=== PATIENT | female | born 1945 | race Caucasian/White ===

== ENCOUNTER → 2020-03-05 14:48 | Outpatient (CLI) | payer MEDICARE, OTHER, SELFPAY ==
--- NOTE | 2020-03-05 14:56 | DI.MG.S_ITS ---
BILATERAL DIGITAL SCREENING MAMMOGRAM 3D/2D WITH CAD: 03/05/2020 CLINICAL: Routine screening. Comparison is made to exams dated: 05/23/2017 mammogram and 08/14/2018 mammogram - [facility]. The tissue of both breasts is predominantly fatty. Current study was also evaluated with a Computer Aided Detection (CAD) system. There are benign lymph nodes in the left breast. There also are benign diffuse calcifications in both breasts. No significant masses, calcifications, or other findings are seen in either breast. There has been no significant interval change. IMPRESSION: BENIGN There is no mammographic evidence of malignancy. A 1 year screening mammogram is recommended. This exam was interpreted at Station ID: [id number]. NOTE: For mammograms, a report in lay terms will be sent to the patient. Approximately 15% of breast malignancies will not be visualized mammographically. In the management of a palpable breast mass, a negative mammogram must not discourage biopsy of a clinically suspicious lesion. Electronically Signed By: Hermelindo [email or web address]/[email or web address]:03/06/2020 14:24:57 letter sent: Normal Exam ACR BI-RADS Category 2: Benign Finding(s) 3342F
== END ==
PROVIDERS: PCP Internal Medicine; Referring Provider Internal Medicine; Visit Provider Internal Medicine
DX: Z12.31 Encounter for screening mammogram for malignant neoplasm of breast (principal)
CPT/HCPCS: 77063; 77067

== ENCOUNTER → 2021-03-11 12:26 | Outpatient (CLI) | payer MEDICARE, OTHER, SELFPAY ==
--- NOTE | 2021-03-11 | DI.MG.S_ITS ---
BILATERAL DIGITAL SCREENING MAMMOGRAM 3D/2D WITH CAD: 03/11/2021 CLINICAL: Routine screening. Comparison is made to exams dated: 03/05/2020 mammogram - [facility], 08/14/2018 mammogram, and 05/23/2017 mammogram - [facility]. The tissue of both breasts is predominantly fatty. Current study was also evaluated with a Computer Aided Detection (CAD) system. There are benign lymph nodes in the left breast. There also are benign calcifications in the left breast. No significant masses, calcifications, or other findings are seen in either breast. There has been no significant interval change. IMPRESSION: BENIGN There is no mammographic evidence of malignancy. A 1 year screening mammogram is recommended. This exam was interpreted at Station ID: [id number]. NOTE: For mammograms, a report in lay terms will be sent to the patient. Approximately 15% of breast malignancies will not be visualized mammographically. In the management of a palpable breast mass, a negative mammogram must not discourage biopsy of a clinically suspicious lesion. Electronically Signed By: Demetra [email or web address]:03/13/2021 10:53:50 letter sent: Normal Exam ACR BI-RADS Category 2: Benign Finding(s) 3342F
== END ==
PROVIDERS: PCP Internal Medicine; Referring Provider Internal Medicine; Visit Provider Internal Medicine
DX: Z12.31 Encounter for screening mammogram for malignant neoplasm of breast (principal)
CPT/HCPCS: 77063; 77067

== ENCOUNTER 2021-08-21 11:15 | Outpatient (RCR) | payer MEDICARE, OTHER, SELFPAY ==
--- NOTE | 2021-06-01 17:17 | PT.OIE ---
Current Diagnoses Constipation, unspecified (06/01/21) Muscle weakness (generalized) (06/01/21) Other specified disorders of muscle (06/01/21) Urge incontinence (06/01/21) Lower abdominal pain, unspecified (06/01/21) Past Medical History (Last Updated 03/07/21 @ 21:53 by Leisa Moscoso) Atrophic vaginitis Closed left ankle fracture Constipation Fractures History of ankle surgery (~2009) History of appendectomy (~1966) History of removal of ovarian cyst (~1975) History of tobacco use HTN (hypertension) (~2005) Left humeral fracture Macular degeneration (~2018) Ovarian cyst (~1975) Prolapse of female pelvic organs (~2020) Rosacea (~2015) Shoulder pain Stress incontinence Past Surgical History (Last Updated 03/07/21 @ 21:53 by Leisa Moscoso) Anesthesia Fracture, humerus History of ankle surgery (~2009) History of appendectomy (~1966) History of removal of ovarian cyst (~1975) Visit Care Team Role Provider Type Jeny Jensen MD Family Provider Non-Staff Primary Care Provider Specialty: Internal Medicine Address: [address] [place] [address], [id number] Email: Mima Suero MD Attending Provider Physician Referring Provider Specialty: MAIL MANAGER Address: [address] [place] [address], [id number] Email: Physical Therapy Initial Evaluation PT-OP-A Visit Information Start: 05/26/21 18:19 Freq: Status: Active Protocol: Document 06/01/21 11:26 LRN (Rec: 06/01/21 12:31 LRN [id number]) Out-Patient Physical Therapy Visit Information Visit Information Visit Type Initial Evaluation Visit Start Time 11:27 Visit Stop Time 12:22 Total Visit Minutes 65 Visit Number 1 Evaluation Information Evaluation Date 06/01/21 Precautions Precautions HBP controlled by meds. PT-OP-B Current Condition Start: 05/26/21 18:19 Freq: Status: Active Protocol: Document 06/01/21 11:26 LRN (Rec: 06/01/21 12:31 LRN [id number]) Current Condition History of Current Condition Onset Date 1 yr ago Current Complaints Prolapse of bladder, inability to hold urine with an urge. History of Current Condition Pt reports bladder prolapse, hanging out and bulging out. A year ago spouse had knee surgery and while lifting she noticed her condition worsened. She was given a PF ex program by urologist and she states she has noticed some improvement with less leakage. She then saw a rolling up machine operator and was told her problem is the prolapse and she had discussed pessary use and will try a pessary after having PT. States she runs damp most of the time. Has had to stop yoga, but would like to be able to do ex yoga and gardening. Prior Treatments and Tests Vaginal estrogen creme every other day. Dr Rowland did a bladder study and found bladder was functioning normal; therefore was told to do a Kegel exercise program since last fall (up to 50QC and 10 sec hold x 50 QC). Future Testing and Treatments Planned Pessary after PT. Treatment Goals Patient/Caregiver Goals Pt goal is to do a yoga class again. Pt goal is to be put on an appropriate HEP. Pt goal is to learn how to do a Kegel correctly. Pt goal is to teach proper body control and limits with lifting. Decrease pain with sexual intercourse. Prior Functional Status Baseline Function- ADL's Independent Baseline Function- Mobility Independent Baseline Function- Other Had urinary incontinence during aerobics, every time jumped. No pain with intercourse. Participated in yoga class. Current Functional Impairments (Reported) Functional Limitations- ADL's Urinary incontinence with a strong urge. Pressure in PF and LBP, causing her have to lie down. Having to push bladder up 3-4x /day. Functional Limitations- Mobility/Gait Walking 3-4 miles, but felt bladder drop by the time the walk was over. Functional Limitations- Recreation/ Not able to return to yoga Hobbies exercise. Functional Limitations- Other Wears one light pantiliner a day. Urinates 3X after going to bed and 8x during the day. Not able to delay urine for any length of time. Personal Factors Other Personal Factors That May Effect Has spouse who has Therapy/Recovery comorbidities that she feels she has to do heavy lifting activities (ex - gardening activities). PT-OP-C Subjective Start: 05/26/21 18:19 Freq: Status: Active Protocol: Document 06/01/21 11:26 LRN (Rec: 06/01/21 12:31 LRN [id number]) Patient Questionnaires Pelvic Pain and Urgency/Frequency Patient Symptom Scale Pelvic Pain Score 22 OP-PT Pain Assessment Pain Assessment Grid Paper Pain Assessment Grid Completed Yes Location Pelvic Floor Pain Location Details Pelvic Floor & sometimes Low Back Scale Used Numeric (0 - 10) Description Aching Description- Other Pain range 2-5/10 Other Pain Aggravating Factors [place] PT-OP-I Pelvic Floor Start: 05/26/21 18:19 Freq: Status: Active Protocol: Document 06/01/21 11:26 LRN (Rec: 06/01/21 12:31 [facility] [id number]) Pelvic Floor Assessment Urine Pelvic Floor Surgery No Urinary Symptoms Urge Sensation,Prolapse, Falling Out Feeling/Heavy Other Urinary Symptoms Urgency Leakage Size Small Leakage Cause Exercise,Urge Other Leakage Causes [place] Leaks Per Day 4/week Voiding Frequency 8 Nocturia 3 Pads Used In 24 Hours 1 Urine Pad Type Panty Liner Bowel Bowel Surgery No Bowel Symptoms Constipation Pelvic Clock Pelvic Clock Other Tender @ 6 O'Clock Pressure @ 3-6 O'Clock Prolapse Cystocele Grade 3 Prolapse Comments Uterus feels it has dropped Perineal Descent Resting Present Bearing Present Contraction Ability Voluntary Contraction Moderate Voluntary Relaxation Moderate Manual Muscle Testing Left 2 Manual Muscle Testing Right 3 Manual Muscle Testing Anterior 3 Manual Muscle Testing Posterior 3 Muscle Endurance (Seconds) 4 Number of Quick Contractions In 10 10 Seconds Comments Pelvic Floor Comments Pt assessed in supine. Pt has noticeable weakening of the PF contraction after 3-4 secs but was able to maintain a contraction for 10 secs. PT-OP-J Posture/Palpation/Skin Start: 05/26/21 18:19 Freq: Status: Active Protocol: Document 06/01/21 11:26 LRN (Rec: 06/01/21 12:31 [facility] [id number]) Posture Evaluation Position Standing L-Spine Posture Decreased Lordosis Shoulder Posture (R) Elevated Ankle/Foot Posture (L) Calcaneal Eversion,(R) Calcaneal Eversion PT-OP-K Range of Motion Start: 05/26/21 18:19 Freq: Status: Active Protocol: Document 06/01/21 11:26 LRN (Rec: 06/01/21 12:31 [facility] [id number]) Lumbar Spine Range of Motion Lumbar Spine Active Degrees Testing Position Standing Flexion 110 Extension 25 Rotation Left 50 Rotation Right 45 Lateral Flexion Left 20 Lateral Flexion Right 15 ROM Limitations Soft Tissue Tightness Comments Flex is with 80 deg's hip flexion Ext is with 15 deg's hip extension PT-OP-M Strength Start: 05/26/21 18:19 Freq: Status: Active Protocol: Document 06/01/21 11:26 LRN (Rec: 06/01/21 12:31 LRN [id number]) Trunk Strength Trunk Manual Muscle Testing Testing Position Supine Rotation Left 5 Normal Rotation Right 5 Normal Hip Strength Hip Manual Muscle Testing Right Comments Generally 5/5 Left Comments Generally 5/5 PT-OP-Q Treatments Start: 05/26/21 18:19 Freq: Status: Active Protocol: Document 06/01/21 11:26 LRN (Rec: 06/01/21 12:31 LRN [id number]) Self-Care/Home Management Treatment Education Other Education Pt educated in use of Bladder Diary and I/S in tracking for 1 week. Discussed use of 2 different diaries for tracking of bladder. Discussed results of evaluation, discussed assessment at vaginal entry and possible reasons for pain, discussed specifics of plan of care, and goals. Discussed and educated pt in specifics for completion of bladder diary for next 7 days. Activities Self-Care/Home Management Activities Issued handouts for bladder diary for 7+ days. Issued & briefly reviewed handout for Kegels with pt focusing on long holds with rest time double contraction time. Pt to continue HEP of 50 Quick Flicks, f/b Long holds (as outlined in Kegel handout, 10 reps 2-3x/day), f/ b 50 Quick Flicks. Pt doing her Quick Flicks 2x/day. PT-OP-T Assessment and Plan Start: 05/26/21 18:19 Freq: Status: Active Protocol: Document 06/01/21 11:26 LRN (Rec: 06/01/21 12:31 [facility] [id number]) Physical Therapy Assessment Rehab Potential Rehabilitation Potential Good Evaluation Complexity Number of Personal Factors/Comorbidities 1-2 Number of Body Systems Impaired 3 Clinical Presentation at Evaluation Evolving Impairments Impairments Activity Tolerance,Pain,ROM, Strength Goals Four Impairment Constipation Short Term Goal (STG) Pt will be educated in proper hydration and levels and placed on bowel program. STG Duration 06/09/21 Wood Floor Layer Goal (LTG) Pt will have improved bowel function and be able to modify positioning on toilet and breathwork to minimize strain on PF. LTG Duration 08/30/21 Three Impairment PF/low back pain rated 2-5/10 Impairment Pain with intercourse. Short Term Goal (STG) Pt will experience decrease frequency onset of PF/low back pain. STG Duration 08/11/21 Shelter Goal (LTG) Decrease pain rating with sexual intercourse. LTG Duration 08/30/21 Two Impairment Prolapse limiting pt's ability to ex and do activities at home (gardening) Short Term Goal (STG) Pt will be educated in proper body mechanics and improve awareness of weight limits with lifting. STG Duration 06/16/21 Shelter Goal (LTG) Pt will be able to do a yoga class without prolapse worsening. LTG Duration 08/30/21 One Impairment Lacks HEP of isolated PF ex's and ex's targeting weak areas in the PF Short Term Goal (STG) Pt will be able to do a Kegel in isolation of substitute muscles and with good coordination of contraction with lift of PF. STG Duration 06/30/21 Wood Floor Layer Goal (LTG) Pt will be put on a HEP of PF ex's in isolation of substitute muscles with focus on strengthening of weak areas (3-6 O'Clock) of PF clock. LTG Duration 08/30/21 Assessment Summary Assessment Pt presents with cystocele visible in supine and possibly slight rectocele. With internal palpation she appears to have a drop in her uterus as well. She uses substitute muscles to obtain her PF contraction and appears to be bearing down during PF contractions and Transverse abdominal tightening. She demonstrates a proper deep breathing method, therefore proper training with ex's would be beneficial to minimize bearing down during exercises. Further assessment of her hip mobility to determine areas of restriction will be performed at her next visit. The pt will benefit from skilled physical therapy to teach proper breathing with daily and exercise activities , training for proper PF contraction in isolation of substitute muscles and education of vulvar and genital care. I will try to address her constipation and methods she can try to minimize bearing down, as well as delay techniques to decrease urinary leakage. Manual therapy to improve abdominal and organ positioning, as well as exercises to work towards achieving the above stated goals. Physical Therapy Plan Frequency and Duration Frequency of Treatment 1x/Week Plan of Care Start Date 06/01/21 Plan of Care End Date 08/30/21 Therapeutic Interventions Therapeutic Interventions Home Exercise Program,Joint Mobilizations,Manual Therapy, Neuromuscular Re-education, Patient/Caregiver Education, Self-Care/Home Management,Soft Tissue Mobilization, Therapeutic Activities, Therapeutic Exercises Modalities Biofeedback,Electric Stimulation Next Visit Focus/Plan Next Note Type Treatment Note Next Visit Plan Assess Hip mobility. PF assessment w/EMG biofeedback for strength & endurance. Discuss and educate pt in constipation management. Education for proper breathing with Kegels, transfers, exercise. Educate pt in proper coordinated PF contraction. Educate pt in vulvar care and genital hygiene. Pt awareness training for isolation of PF when doing a Kegel. Increase strength of L side of PF.
--- NOTE | 2021-06-01 17:17 | PT.OPPOC ---
Physical, Occupational & Speech Therapy At [facility] Current Diagnoses Constipation, unspecified (06/01/21) Muscle weakness (generalized) (06/01/21) Other specified disorders of muscle (06/01/21) Urge incontinence (06/01/21) Lower abdominal pain, unspecified (06/01/21) Visit Care Team Role Provider Type Jeny Jensen MD Family Provider Non-Staff Primary Care Provider Specialty: Internal Medicine Address: [address] [place] [address], [id number] Email: Mima Suero MD Attending Provider Physician Referring Provider Specialty: INDUSTRIAL SPRAYPAINTER Address: [address] [place] [address], [address] Email: Plan Of Care PT-OP-T Assessment and Plan Start: 05/26/21 18:19 Freq: Status: Active Protocol: Document 06/01/21 11:26 LRN (Rec: 06/01/21 12:31 LRN [id number]) Physical Therapy Assessment Rehab Potential Rehabilitation Potential Good Evaluation Complexity Number of Personal Factors/Comorbidities 1-2 Number of Body Systems Impaired 3 Clinical Presentation at Evaluation Evolving Impairments Impairments Activity Tolerance,Pain,ROM, Strength Goals Four Impairment Constipation Short Term Goal (STG) Pt will be educated in proper hydration and levels and placed on bowel program. STG Duration 06/09/21 Creative Services Director Goal (LTG) Pt will have improved bowel function and be able to modify positioning on toilet and breathwork to minimize strain on PF. LTG Duration 08/30/21 Three Impairment PF/low back pain rated 2-5/10 Impairment Pain with intercourse. Short Term Goal (STG) Pt will experience decrease frequency onset of PF/low back pain. STG Duration 08/11/21 [facility] Goal (LTG) Decrease pain rating with sexual intercourse. LTG Duration 08/30/21 Two Impairment Prolapse limiting pt's ability to ex and do activities at home (gardening) Short Term Goal (STG) Pt will be educated in proper body mechanics and improve awareness of weight limits with lifting. STG Duration 06/16/21 Creative Services Director Goal (LTG) Pt will be able to do a yoga class without prolapse worsening. LTG Duration 08/30/21 One Impairment Lacks HEP of isolated PF ex's and ex's targeting weak areas in the PF Short Term Goal (STG) Pt will be able to do a Kegel in isolation of substitute muscles and with good coordination of contraction with lift of PF. STG Duration 06/30/21 [facility] Goal (LTG) Pt will be put on a HEP of PF ex's in isolation of substitute muscles with focus on strengthening of weak areas (3-6 O'Clock) of PF clock. LTG Duration 08/30/21 Assessment Summary Assessment Pt presents with cystocele visible in supine and possibly slight rectocele. With internal palpation she appears to have a drop in her uterus as well. She uses substitute muscles to obtain her PF contraction and appears to be bearing down during PF contractions and Transverse abdominal tightening. She demonstrates a proper deep breathing method, therefore proper training with ex's would be beneficial to minimize bearing down during exercises. Further assessment of her hip mobility to determine areas of restriction will be performed at her next visit. The pt will benefit from skilled physical therapy to teach proper breathing with daily and exercise activities , training for proper PF contraction in isolation of substitute muscles and education of vulvar and genital care. I will try to address her constipation and methods she can try to minimize bearing down, as well as delay techniques to decrease urinary leakage. Manual therapy to improve abdominal and organ positioning, as well as exercises to work towards achieving the above stated goals. Physical Therapy Plan Frequency and Duration Frequency of Treatment 1x/Week Plan of Care Start Date 06/01/21 Plan of Care End Date 08/30/21 Therapeutic Interventions Therapeutic Interventions Home Exercise Program,Joint Mobilizations,Manual Therapy, Neuromuscular Re-education, Patient/Caregiver Education, Self-Care/Home Management,Soft Tissue Mobilization, Therapeutic Activities, Therapeutic Exercises Modalities Biofeedback,Electric Stimulation Next Visit Focus/Plan Next Note Type Treatment Note Next Visit Plan Assess Hip mobility. PF assessment w/EMG biofeedback for strength & endurance. Discuss and educate pt in constipation management. Education for proper breathing with Kegels, transfers, exercise. Educate pt in proper coordinated PF contraction. Educate pt in vulvar care and genital hygiene. Pt awareness training for isolation of PF when doing a Kegel. Increase strength of L side of PF. Plan of Care Dates Plan of Care Start Date 06/01/21 Plan of Care End Date 08/30/21 Electronically Signed by: Tangela Polo, PT 06/01/21 [id number] Please Sign and Return: I have reviewed this Plan of Care and certify that the skilled therapy services above are required to meet the patient?s needs. Physician Signature Date Printed Name and Credentials Clinical Instructor Signature Printed Name and Credentials
--- NOTE | 2021-06-09 16:44 | PT.OTN ---
Current Diagnoses Constipation, unspecified (06/09/21) Muscle weakness (generalized) (06/09/21) Other specified disorders of muscle (06/09/21) Urge incontinence (06/09/21) Lower abdominal pain, unspecified (06/09/21) Physical Therapy Treatment Note PT-OP-A Visit Information Start: 05/26/21 18:19 Freq: Status: Active Protocol: Document 06/09/21 13:04 LRN (Rec: 06/09/21 16:41 LRN [id number]) Out-Patient Physical Therapy Visit Information Visit Information Visit Type Treatment Note Visit Start Time 13:04 Visit Stop Time 13:45 Total Visit Minutes 41 Visit Number 1 Evaluation Information Evaluation Date 06/01/21 Precautions Precautions HBP controlled by meds. PT-OP-B Current Condition Start: 05/26/21 18:19 Freq: Status: Active Protocol: Document 06/01/21 11:26 LRN (Rec: 06/01/21 12:31 LRN [id number]) Current Condition History of Current Condition Onset Date 1 yr ago Current Complaints Prolapse of bladder, inability to hold urine with an urge. History of Current Condition Pt reports bladder prolapse, hanging out and bulging out. A year ago spouse had knee surgery and while lifting she noticed her condition worsened. She was given a PF ex program by urologist and she states she has noticed some improvement with less leakage. She then saw a sheet manufacturing supervisor and was told her problem is the prolapse and she had discussed pessary use and will try a pessary after having PT. States she runs damp most of the time. Has had to stop yoga, but would like to be able to do ex yoga and gardening. Prior Treatments and Tests Vaginal estrogen creme every other day. Dr Rowland did a bladder study and found bladder was functioning normal; therefore was told to do a Kegel exercise program since last fall (up to 50QC and 10 sec hold x 50 QC). Future Testing and Treatments Planned Pessary after PT. Treatment Goals Patient/Caregiver Goals Pt goal is to do a yoga class again. Pt goal is to be put on an appropriate HEP. Pt goal is to learn how to do a Kegel correctly. Pt goal is to teach proper body control and limits with lifting. Decrease pain with sexual intercourse. Prior Functional Status Baseline Function- ADL's Independent Baseline Function- Mobility Independent Baseline Function- Other Had urinary incontinence during aerobics, every time jumped. No pain with intercourse. Participated in yoga class. Current Functional Impairments (Reported) Functional Limitations- ADL's Urinary incontinence with a strong urge. Pressure in PF and LBP, causing her have to lie down. Having to push bladder up 3-4x /day. Functional Limitations- Mobility/Gait Walking 3-4 miles, but felt bladder drop by the time the walk was over. Functional Limitations- Recreation/ Not able to return to yoga Hobbies exercise. Functional Limitations- Other Wears one light pantiliner a day. Urinates 3X after going to bed and 8x during the day. Not able to delay urine for any length of time. Personal Factors Other Personal Factors That May Effect Has spouse who has Therapy/Recovery comorbidities that she feels she has to do heavy lifting activities (ex - gardening activities). PT-OP-C Subjective Start: 05/26/21 18:19 Freq: Status: Active Protocol: Document 06/09/21 13:04 LRN (Rec: 06/09/21 16:41 LRN [id number]) OP-PT Subjective Patient Comments Patient Comments Noticed the most leakage comes when heading to the bathroom or when coughing. States new meds prevents her from drinking her red wine at night . PT-OP-I Pelvic Floor Start: 05/26/21 18:19 Freq: Status: Active Protocol: Document 06/01/21 11:26 LRN (Rec: 06/01/21 12:31 LRN [id number]) Pelvic Floor Assessment Urine Pelvic Floor Surgery No Urinary Symptoms Urge Sensation,Prolapse, Falling Out Feeling/Heavy Other Urinary Symptoms Urgency Leakage Size Small Leakage Cause Exercise,Urge Other Leakage Causes [place] Leaks Per Day 4/week Voiding Frequency 8 Nocturia 3 Pads Used In 24 Hours 1 Urine Pad Type Panty Liner Bowel Bowel Surgery No Bowel Symptoms Constipation Pelvic Clock Pelvic Clock Other Tender @ 6 O'Clock Pressure @ 3-6 O'Clock Prolapse Cystocele Grade 3 Prolapse Comments Uterus feels it has dropped Perineal Descent Resting Present Bearing Present Contraction Ability Voluntary Contraction Moderate Voluntary Relaxation Moderate Manual Muscle Testing Left 2 Manual Muscle Testing Right 3 Manual Muscle Testing Anterior 3 Manual Muscle Testing Posterior 3 Muscle Endurance (Seconds) 4 Number of Quick Contractions In 10 10 Seconds Comments Pelvic Floor Comments Pt assessed in supine. Pt has noticeable weakening of the PF contraction after 3-4 secs but was able to maintain a contraction for 10 secs. PT-OP-J Posture/Palpation/Skin Start: 05/26/21 18:19 Freq: Status: Active Protocol: Document 06/01/21 11:26 LRN (Rec: 06/01/21 12:31 LRN [id number]) Posture Evaluation Position Standing L-Spine Posture Decreased Lordosis Shoulder Posture (R) Elevated Ankle/Foot Posture (L) Calcaneal Eversion,(R) Calcaneal Eversion PT-OP-K Range of Motion Start: 05/26/21 18:19 Freq: Status: Active Protocol: Document 06/01/21 11:26 LRN (Rec: 06/01/21 12:31 LRN [id number]) Lumbar Spine Range of Motion Lumbar Spine Active Degrees Testing Position Standing Flexion 110 Extension 25 Rotation Left 50 Rotation Right 45 Lateral Flexion Left 20 Lateral Flexion Right 15 ROM Limitations Soft Tissue Tightness Comments Flex is with 80 deg's hip flexion Ext is with 15 deg's hip extension PT-OP-M Strength Start: 05/26/21 18:19 Freq: Status: Active Protocol: Document 06/01/21 11:26 LRN (Rec: 06/01/21 12:31 LRN [id number]) Trunk Strength Trunk Manual Muscle Testing Testing Position Supine Rotation Left 5 Normal Rotation Right 5 Normal Hip Strength Hip Manual Muscle Testing Right Comments Generally 5/5 Left Comments Generally 5/5 PT-OP-Q Treatments Start: 05/26/21 18:19 Freq: Status: Active Protocol: Document 06/09/21 13:04 LRN (Rec: 06/09/21 16:41 LRN [id number]) Therapeutic Exercises Supine Exercises LE Roll in/out/PF Supine Exercise Name LE Roll in/out w/PF Side bilateral Equipment Used Wedge Reps/Minutes 9' Comments Much v cuing and I/S to coordinate mvmt, Standing Exercises Deep breathing Standing Exercise Name Breathing w/PF Equipment Used Wedge Reps/Minutes 2' Comments Training w/much v cuing to contract with in breath Self-Care/Home Management Treatment Education Patient Education Home Exercise Program Other Education Reviewed ex log and made suggestions as needed for: fluid intake types, times of day with hydration levels (1/2 body wgt in oz's and extra needed for coffee and alcholic drinks), time of day of voiding, long discussion of foods/drinks to avoid. Discussed pt's exercising, use of estrogen cream and when bladder is outside of vagina ( when bladder has dried out). Activities Self-Care/Home Management Activities Issued & reviewed HEP: LE roll in/outs with PF contraction on inhale/roll outs. PT-OP-T Assessment and Plan Start: 05/26/21 18:19 Freq: Status: Active Protocol: Document 06/09/21 13:04 LRN (Rec: 06/09/21 16:41 LRN [id number]) Physical Therapy Assessment Goals Four Impairment Constipation Short Term Goal (STG) Pt will be educated in proper hydration and levels and placed on bowel program. (06/09/21: Pt was educated in proper hydration levels). STG Duration 06/09/21 [employer] Goal (LTG) Pt will have improved bowel function and be able to modify positioning on toilet and breathwork to minimize strain on PF. LTG Duration 08/30/21 Three Impairment PF/low back pain rated 2-5/10 Impairment Pain with intercourse. Short Term Goal (STG) Pt will experience decrease frequency onset of PF/low back pain. STG Duration 08/11/21 [employer] Goal (LTG) Decrease pain rating with sexual intercourse. LTG Duration 08/30/21 Two Impairment Prolapse limiting pt's ability to ex and do activities at home (gardening) Short Term Goal (STG) Pt will be educated in proper body mechanics and improve awareness of weight limits with lifting. STG Duration 06/16/21 [facility] Goal (LTG) Pt will be able to do a yoga class without prolapse worsening. LTG Duration 08/30/21 One Impairment Lacks HEP of isolated PF ex's and ex's targeting weak areas in the PF Short Term Goal (STG) Pt will be able to do a Kegel in isolation of substitute muscles and with good coordination of contraction with lift of PF. STG Duration 06/30/21 [employer] Goal (LTG) Pt will be put on a HEP of PF ex's in isolation of substitute muscles with focus on strengthening of weak areas (3-6 O'Clock) of PF clock. LTG Duration 08/30/21 Assessment Summary Assessment Pt is very receptive to PF strengthenig program. Today's check of PF in standing showed her Bladder to not extending beyond the hymen location; therefore Stage 1 bladder prolapse, but verbal reports would indicate the pt has Stage 2 bladder prolapse. Pt needs further training with LE roll in/outs and to advance to holding on breath in & out. Physical Therapy Plan Frequency and Duration Frequency of Treatment 1x/Week Plan of Care Start Date 06/01/21 Plan of Care End Date 08/30/21 Next Visit Focus/Plan Next Note Type Treatment Note Next Visit Plan Assess Hip mobility. Discuss and educate pt in constipation management/Bowel Program.] Teach positioning for ease of BM voiding and proper breathing to decrease PF strain with BM. ?PF assessment w/EMG biofeedback for strength & endurance. Teach Kegels in isolation of substitute ms. Education for proper breathing with Kegels, transfers, & during exercise. Educate pt in proper coordinated PF contraction. Educate pt in vulvar care and genital hygiene. Pt awareness training for isolation of PF when doing a Kegel. Increase strength of L side of PF.
--- NOTE | 2021-06-15 12:23 | PT.OTN ---
Current Diagnoses Constipation, unspecified (06/15/21) Muscle weakness (generalized) (06/15/21) Other specified disorders of muscle (06/15/21) Urge incontinence (06/15/21) Lower abdominal pain, unspecified (06/15/21) Physical Therapy Treatment Note PT-OP-A Visit Information Start: 05/26/21 18:19 Freq: Status: Active Protocol: Document 06/15/21 11:27 LRN (Rec: 06/15/21 12:23 LRN [id number]) Out-Patient Physical Therapy Visit Information Visit Information Visit Type Treatment Note Visit Start Time 11:27 Visit Stop Time 12:05 Total Visit Minutes 38 Visit Number 3 Evaluation Information Evaluation Date 06/01/21 Precautions Precautions HBP controlled by meds. PT-OP-B Current Condition Start: 05/26/21 18:19 Freq: Status: Active Protocol: Document 06/01/21 11:26 LRN (Rec: 06/01/21 12:31 LRN [id number]) Current Condition History of Current Condition Onset Date 1 yr ago Current Complaints Prolapse of bladder, inability to hold urine with an urge. History of Current Condition Pt reports bladder prolapse, hanging out and bulging out. A year ago spouse had knee surgery and while lifting she noticed her condition worsened. She was given a PF ex program by urologist and she states she has noticed some improvement with less leakage. She then saw a colorist photography and was told her problem is the prolapse and she had discussed pessary use and will try a pessary after having PT. States she runs damp most of the time. Has had to stop yoga, but would like to be able to do ex yoga and gardening. Prior Treatments and Tests Vaginal estrogen creme every other day. Dr Rowland did a bladder study and found bladder was functioning normal; therefore was told to do a Kegel exercise program since last fall (up to 50QC and 10 sec hold x 50 QC). Future Testing and Treatments Planned Pessary after PT. Treatment Goals Patient/Caregiver Goals Pt goal is to do a yoga class again. Pt goal is to be put on an appropriate HEP. Pt goal is to learn how to do a Kegel correctly. Pt goal is to teach proper body control and limits with lifting. Decrease pain with sexual intercourse. Prior Functional Status Baseline Function- ADL's Independent Baseline Function- Mobility Independent Baseline Function- Other Had urinary incontinence during aerobics, every time jumped. No pain with intercourse. Participated in yoga class. Current Functional Impairments (Reported) Functional Limitations- ADL's Urinary incontinence with a strong urge. Pressure in PF and LBP, causing her have to lie down. Having to push bladder up 3-4x /day. Functional Limitations- Mobility/Gait Walking 3-4 miles, but felt bladder drop by the time the walk was over. Functional Limitations- Recreation/ Not able to return to yoga Hobbies exercise. Functional Limitations- Other Wears one light pantiliner a day. Urinates 3X after going to bed and 8x during the day. Not able to delay urine for any length of time. Personal Factors Other Personal Factors That May Effect Has spouse who has Therapy/Recovery comorbidities that she feels she has to do heavy lifting activities (ex - gardening activities). PT-OP-C Subjective Start: 05/26/21 18:19 Freq: Status: Active Protocol: Document 06/15/21 11:27 LRN (Rec: 06/15/21 12:23 LRN [id number]) OP-PT Subjective Patient Comments Patient Comments States without coffee, she was able to go 3 hrs without urinating. PT-OP-I Pelvic Floor Start: 05/26/21 18:19 Freq: Status: Active Protocol: Document 06/01/21 11:26 LRN (Rec: 06/01/21 12:31 LRN [id number]) Pelvic Floor Assessment Urine Pelvic Floor Surgery No Urinary Symptoms Urge Sensation,Prolapse, Falling Out Feeling/Heavy Other Urinary Symptoms Urgency Leakage Size Small Leakage Cause Exercise,Urge Other Leakage Causes [place] Leaks Per Day 4/week Voiding Frequency 8 Nocturia 3 Pads Used In 24 Hours 1 Urine Pad Type Panty Liner Bowel Bowel Surgery No Bowel Symptoms Constipation Pelvic Clock Pelvic Clock Other Tender @ 6 O'Clock Pressure @ 3-6 O'Clock Prolapse Cystocele Grade 3 Prolapse Comments Uterus feels it has dropped Perineal Descent Resting Present Bearing Present Contraction Ability Voluntary Contraction Moderate Voluntary Relaxation Moderate Manual Muscle Testing Left 2 Manual Muscle Testing Right 3 Manual Muscle Testing Anterior 3 Manual Muscle Testing Posterior 3 Muscle Endurance (Seconds) 4 Number of Quick Contractions In 10 10 Seconds Comments Pelvic Floor Comments Pt assessed in supine. Pt has noticeable weakening of the PF contraction after 3-4 secs but was able to maintain a contraction for 10 secs. PT-OP-J Posture/Palpation/Skin Start: 05/26/21 18:19 Freq: Status: Active Protocol: Document 06/01/21 11:26 LRN (Rec: 06/01/21 12:31 LRN [id number]) Posture Evaluation Position Standing L-Spine Posture Decreased Lordosis Shoulder Posture (R) Elevated Ankle/Foot Posture (L) Calcaneal Eversion,(R) Calcaneal Eversion PT-OP-K Range of Motion Start: 05/26/21 18:19 Freq: Status: Active Protocol: Document 06/15/21 11:27 LRN (Rec: 06/15/21 12:23 LRN [id number]) Hip Goniometric Range of Motion Hip Right Passive Testing Position Supine Flexion w/Knee Flexed 130 Straight Leg Raise 90 Abduction 50 Internal Rotation 30 External Rotation 75 Left Passive Testing Position Supine Flexion w/Knee Flexed 130 Straight Leg Raise 90 Abduction 50 Internal Rotation 30 External Rotation 60 PT-OP-M Strength Start: 05/26/21 18:19 Freq: Status: Active Protocol: Document 06/01/21 11:26 LRN (Rec: 06/01/21 12:31 LRN [id number]) Trunk Strength Trunk Manual Muscle Testing Testing Position Supine Rotation Left 5 Normal Rotation Right 5 Normal Hip Strength Hip Manual Muscle Testing Right Comments Generally 5/5 Left Comments Generally 5/5 PT-OP-Q Treatments Start: 05/26/21 18:19 Freq: Status: Active Protocol: Document 06/15/21 11:27 LRN (Rec: 06/15/21 12:23 LRN [id number]) Therapeutic Exercises Supine Exercises Hip Flex/SLR Supine Exercise Name KTC & Hamstring stretch Side bilateral Reps/Minutes 6' Comments PROM taken Hip ER stretch Supine Exercise Name Fig 4 stretch Side bilateral Reps/Minutes 60 H x 1 Comments PROM taken Hip IR stretch Supine Exercise Name Knee to opposite shoulder Side bilateral Reps/Minutes 60 H x 1 & x1 self stretch Comments PROM taken LE Roll in/out/PF Supine Exercise Name LE Roll in/out w/PF Side bilateral Equipment Used Wedge Reps/Minutes 10' Comments Much v cuing and I/S to coordinate mvmt, Self-Care/Home Management Treatment Education Patient Education Home Exercise Program Other Education Discussed at length, pt daily fluid intake and bathroom habits (urinary and bowels). Pt taking Miralax daily and is not wanting to take. Discussed types of fluids she is drinking and body response (increased urinary voiding). Discussed alternative to coffee (decaf vs coffee substitutes). Discussed pt lower abdominal pain onset after doing Kegel ex's. Activities Self-Care/Home Management Activities I/S pt in hip IR stretches: Piriformis (knee to opposite shoulder) and lateral hip stretch. PT-OP-T Assessment and Plan Start: 05/26/21 18:19 Freq: Status: Active Protocol: Document 06/15/21 11:27 LRN (Rec: 06/15/21 12:23 LRN [id number]) Physical Therapy Assessment Goals Four Impairment Constipation Short Term Goal (STG) Pt will be educated in proper hydration and levels and placed on bowel program. (06/09/21: Pt was educated in proper hydration levels). STG Duration 06/09/21 (05/15/21; Partially met) [facility] Goal (LTG) Pt will have improved bowel function and be able to modify positioning on toilet and breathwork to minimize strain on PF. LTG Duration 08/30/21 Three Impairment PF/low back pain rated 2-5/10 Impairment Pain with intercourse. Short Term Goal (STG) Pt will experience decrease frequency onset of PF/low back pain. STG Duration 08/11/21 [facility]iary Goal (LTG) Decrease pain rating with sexual intercourse. LTG Duration 08/30/21 Two Impairment Prolapse limiting pt's ability to ex and do activities at home (gardening) Short Term Goal (STG) Pt will be educated in proper body mechanics and improve awareness of weight limits with lifting. STG Duration 06/16/21 [facility]iary Goal (LTG) Pt will be able to do a yoga class without prolapse worsening. LTG Duration 08/30/21 One Impairment Lacks HEP of isolated PF ex's and ex's targeting weak areas in the PF Short Term Goal (STG) Pt will be able to do a Kegel in isolation of substitute muscles and with good coordination of contraction with lift of PF. STG Duration 06/30/21 Stacker [employer] Goal (LTG) Pt will be put on a HEP of PF ex's in isolation of substitute muscles with focus on strengthening of weak areas (3-6 O'Clock) of PF clock. LTG Duration 08/30/21 Assessment Summary Assessment On eval, pt had visible cystocele in supine and possibly slight rectocele. Pt needed much verbal cuing to coordinate LE roll in/out ex's . Her L hip mobility is decreased (note: pt L ankle fused). Physical Therapy Plan Frequency and Duration Frequency of Treatment 1x/Week Plan of Care Start Date 06/01/21 Plan of Care End Date 08/30/21 Next Visit Focus/Plan Next Note Type Treatment Note Next Visit Plan Assess gait for catching of toes on L side. Discuss and educate pt in constipation, place on Bowel Program.] Teach positioning for ease of BM voiding and proper breathing to decrease PF strain with BM. ?PF assessment w/EMG biofeedback for strength & endurance. Education for proper breathing with Kegels, transfers, & during exercise. Monitor for Kegels in isolation of substitute ms. Educate pt in proper coordinated PF contraction. Educate pt in vulvar care and genital hygiene. Pt awareness training for isolation of PF when doing a Kegel. Increase strength of L side of PF.
--- NOTE | 2021-06-22 12:33 | PT.OTN ---
Current Diagnoses Constipation, unspecified (06/22/21) Muscle weakness (generalized) (06/22/21) Other specified disorders of muscle (06/22/21) Urge incontinence (06/22/21) Lower abdominal pain, unspecified (06/22/21) Physical Therapy Treatment Note PT-OP-A Visit Information Start: 05/26/21 18:19 Freq: Status: Active Protocol: Document 06/22/21 11:24 LRN (Rec: 06/22/21 11:22 LRN [id number]) Out-Patient Physical Therapy Visit Information Visit Information Visit Type Treatment Note Visit Start Time 11:24 Visit Stop Time 12:11 Total Visit Minutes 47 Visit Number 4 Evaluation Information Evaluation Date 06/01/21 Precautions Precautions HBP controlled by meds. PT-OP-B Current Condition Start: 05/26/21 18:19 Freq: Status: Active Protocol: Document 06/01/21 11:26 LRN (Rec: 06/01/21 12:31 LRN [id number]) Current Condition History of Current Condition Onset Date 1 yr ago Current Complaints Prolapse of bladder, inability to hold urine with an urge. History of Current Condition Pt reports bladder prolapse, hanging out and bulging out. A year ago spouse had knee surgery and while lifting she noticed her condition worsened. She was given a PF ex program by urologist and she states she has noticed some improvement with less leakage. She then saw a supervisor metal furniture assembly and was told her problem is the prolapse and she had discussed pessary use and will try a pessary after having PT. States she runs damp most of the time. Has had to stop yoga, but would like to be able to do ex yoga and gardening. Prior Treatments and Tests Vaginal estrogen creme every other day. Dr Rowland did a bladder study and found bladder was functioning normal; therefore was told to do a Kegel exercise program since last fall (up to 50QC and 10 sec hold x 50 QC). Future Testing and Treatments Planned Pessary after PT. Treatment Goals Patient/Caregiver Goals Pt goal is to do a yoga class again. Pt goal is to be put on an appropriate HEP. Pt goal is to learn how to do a Kegel correctly. Pt goal is to teach proper body control and limits with lifting. Decrease pain with sexual intercourse. Prior Functional Status Baseline Function- ADL's Independent Baseline Function- Mobility Independent Baseline Function- Other Had urinary incontinence during aerobics, every time jumped. No pain with intercourse. Participated in yoga class. Current Functional Impairments (Reported) Functional Limitations- ADL's Urinary incontinence with a strong urge. Pressure in PF and LBP, causing her have to lie down. Having to push bladder up 3-4x /day. Functional Limitations- Mobility/Gait Walking 3-4 miles, but felt bladder drop by the time the walk was over. Functional Limitations- Recreation/ Not able to return to yoga Hobbies exercise. Functional Limitations- Other Wears one light pantiliner a day. Urinates 3X after going to bed and 8x during the day. Not able to delay urine for any length of time. Personal Factors Other Personal Factors That May Effect Has spouse who has Therapy/Recovery comorbidities that she feels she has to do heavy lifting activities (ex - gardening activities). PT-OP-C Subjective Start: 05/26/21 18:19 Freq: Status: Active Protocol: Document 06/22/21 11:24 LRN (Rec: 06/22/21 11:22 LRN [id number]) OP-PT Subjective Patient Comments Patient Comments Wants to focu on the core. Wants to know if she is doing a correct Kegel. Wants some ex's. PT-OP-I Pelvic Floor Start: 05/26/21 18:19 Freq: Status: Active Protocol: Document 06/01/21 11:26 LRN (Rec: 06/01/21 12:31 LRN [id number]) Pelvic Floor Assessment Urine Pelvic Floor Surgery No Urinary Symptoms Urge Sensation,Prolapse, Falling Out Feeling/Heavy Other Urinary Symptoms Urgency Leakage Size Small Leakage Cause Exercise,Urge Other Leakage Causes [place] Leaks Per Day 4/week Voiding Frequency 8 Nocturia 3 Pads Used In 24 Hours 1 Urine Pad Type Panty Liner Bowel Bowel Surgery No Bowel Symptoms Constipation Pelvic Clock Pelvic Clock Other Tender @ 6 O'Clock Pressure @ 3-6 O'Clock Prolapse Cystocele Grade 3 Prolapse Comments Uterus feels it has dropped Perineal Descent Resting Present Bearing Present Contraction Ability Voluntary Contraction Moderate Voluntary Relaxation Moderate Manual Muscle Testing Left 2 Manual Muscle Testing Right 3 Manual Muscle Testing Anterior 3 Manual Muscle Testing Posterior 3 Muscle Endurance (Seconds) 4 Number of Quick Contractions In 10 10 Seconds Comments Pelvic Floor Comments Pt assessed in supine. Pt has noticeable weakening of the PF contraction after 3-4 secs but was able to maintain a contraction for 10 secs. PT-OP-J Posture/Palpation/Skin Start: 05/26/21 18:19 Freq: Status: Active Protocol: Document 06/01/21 11:26 LRN (Rec: 06/01/21 12:31 LRN [id number]) Posture Evaluation Position Standing L-Spine Posture Decreased Lordosis Shoulder Posture (R) Elevated Ankle/Foot Posture (L) Calcaneal Eversion,(R) Calcaneal Eversion PT-OP-K Range of Motion Start: 05/26/21 18:19 Freq: Status: Active Protocol: Document 06/15/21 11:27 LRN (Rec: 06/15/21 12:23 LRN [id number]) Hip Goniometric Range of Motion Hip Right Passive Testing Position Supine Flexion w/Knee Flexed 130 Straight Leg Raise 90 Abduction 50 Internal Rotation 30 External Rotation 75 Left Passive Testing Position Supine Flexion w/Knee Flexed 130 Straight Leg Raise 90 Abduction 50 Internal Rotation 30 External Rotation 60 PT-OP-M Strength Start: 05/26/21 18:19 Freq: Status: Active Protocol: Document 06/01/21 11:26 LRN (Rec: 06/01/21 12:31 LRN [id number]) Trunk Strength Trunk Manual Muscle Testing Testing Position Supine Rotation Left 5 Normal Rotation Right 5 Normal Hip Strength Hip Manual Muscle Testing Right Comments Generally 5/5 Left Comments Generally 5/5 PT-OP-Q Treatments Start: 05/26/21 18:19 Freq: Status: Active Protocol: Document 06/22/21 11:24 LRN (Rec: 06/22/21 11:25 LRN [id number]) Therapeutic Exercises Supine Exercises Kegel Supine Exercise Name Kegel on Wedge: 5 hold (I/S in how to progress to 10 in 7 days) Equipment Used Wedge Reps/Minutes 12' Chest breathing Supine Exercise Name Breathing with TA tight Reps/Minutes 10' Comments Much phy & v cuing used, but pt not able to breath with core stabilized. Sit <> Supine Supine Exercise Name Transfer training with proper breathing > adding PF Side right Reps/Minutes 4x Comments v cuing needed to coordinate movement. Sit <> stand Supine Exercise Name Transfer training with proper breathing > adding PF Reps/Minutes 4' Comments v cuing needed to coordinate movement. Lateral Hip stretch Supine Exercise Name Lateral Hip stretch Side bilateral Reps/Minutes 60 H x 1 each Hip Flex/SLR Supine Exercise Name KTC & Hamstring stretch Side bilateral Reps/Minutes 6' Hip IR stretch Supine Exercise Name Knee to opposite shoulder Side bilateral Reps/Minutes 60 H x 2 each Self-Care/Home Management Treatment Education Patient Education Home Exercise Program Activities Self-Care/Home Management Activities Issued & reviewed HEP: Piriformis and Lateral hip stretch; Bowel massage and Bowel program, w/pt instructed to discuss with her physician use of magnesium before adding to diet. PT-OP-T Assessment and Plan Start: 05/26/21 18:19 Freq: Status: Active Protocol: Document 06/22/21 11:24 LRN (Rec: 06/22/21 11: LRN [id number]) Physical Therapy Assessment Goals Four Impairment Constipation Short Term Goal (STG) Pt will be educated in proper hydration and levels and placed on bowel program. (06/09/21: Pt was educated in proper hydration levels). (06/22/21: Education in bowel program and bowel massage). STG Duration 06/09/21 (06/22/21: MET GOAL) [facility] Goal (LTG) Pt will have improved bowel function and be able to modify positioning on toilet and breathwork to minimize strain on PF. LTG Duration 08/30/21 Three Impairment PF/low back pain rated 2-5/10 Impairment Pain with intercourse. Short Term Goal (STG) Pt will experience decrease frequency onset of PF/low back pain. STG Duration 08/11/21 [facility] Goal (LTG) Decrease pain rating with sexual intercourse. LTG Duration 08/30/21 Two Impairment Prolapse limiting pt's ability to ex and do activities at home (gardening) Short Term Goal (STG) Pt will be educated in proper body mechanics and improve awareness of weight limits with lifting. (06/22/21: Pt educated in log roll transfer from [facility] with proper breathing) STG Duration 06/16/21 (06/22/21: Progressed ) [facility] Goal (LTG) Pt will be able to do a yoga class without prolapse worsening. LTG Duration 08/30/21 One Impairment Lacks HEP of isolated PF ex's and ex's targeting weak areas in the PF Short Term Goal (STG) Pt will be able to do a Kegel in isolation of substitute muscles and with good coordination of contraction with lift of PF. (06/22/21: Can do isolated Kegel from gluts and hip AD's, but not TA). STG Duration 06/30/21 (06/22/21: Progressed ) [employer] Goal (LTG) Pt will be put on a HEP of PF ex's in isolation of substitute muscles with focus on strengthening of weak areas (3-6 O'Clock) of PF clock. LTG Duration 08/30/21 Assessment Summary Assessment Poor to no core stability when breathing. Pt has tight hip IR's and L ER's. Pt in sup w/ hips elevated, is able to feel a Kegel in sup but not able to sustain while breathing. She states she can do a Kegel in isolation of her buttocks, and hip AD's but not her TA. Physical Therapy Plan Frequency and Duration Frequency of Treatment 1x/Week Plan of Care Start Date 06/01/21 Plan of Care End Date 08/30/21 Next Visit Focus/Plan Next Note Type Treatment Note Next Visit Plan Plan: 3 visits before 1 month vacation. On return, recheck by referring physician. Assess gait for catching of toes on L side. Review proper breathing with Kegels, transfers, and bowel massage. Review proper coordinated PF contraction with hips elevated . Assess pt's ability to perform PF contraction in when doing a Kegel. Teach positioning for ease of BM voiding and proper breathing to decrease PF strain with BM. ?PF assessment w/EMG biofeedback for strength & endurance. Educate pt in proper breathing w/Kegel during exercise. Monitor for Kegels in isolation of substitute ms. Educate pt in vulvar care and genital hygiene. Increase strength of L side of PF.
--- NOTE | 2021-06-29 17:15 | PT.OTN ---
Current Diagnoses Constipation, unspecified (06/29/21) Muscle weakness (generalized) (06/29/21) Other specified disorders of muscle (06/29/21) Urge incontinence (06/29/21) Lower abdominal pain, unspecified (06/29/21) Physical Therapy Treatment Note PT-OP-A Visit Information Start: 05/26/21 18:19 Freq: Status: Active Protocol: Document 06/29/21 11:22 LRN (Rec: 06/29/21 12:17 LRN [id number]) Out-Patient Physical Therapy Visit Information Visit Information Visit Type Treatment Note Visit Start Time 11:22 Visit Stop Time 12:11 Total Visit Minutes 49 Visit Number 5 Evaluation Information Evaluation Date 06/01/21 Precautions Precautions HBP controlled by meds. PT-OP-B Current Condition Start: 05/26/21 18:19 Freq: Status: Active Protocol: Document 06/01/21 11:26 LRN (Rec: 06/01/21 12:31 LRN [id number]) Current Condition History of Current Condition Onset Date 1 yr ago Current Complaints Prolapse of bladder, inability to hold urine with an urge. History of Current Condition Pt reports bladder prolapse, hanging out and bulging out. A year ago spouse had knee surgery and while lifting she noticed her condition worsened. She was given a PF ex program by urologist and she states she has noticed some improvement with less leakage. 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 States she runs damp most of the time. Has had to stop yoga, but would like to be able to do ex yoga and gardening. Prior Treatments and Tests Vaginal estrogen creme every other day. Dr Rowland did a bladder study and found bladder was functioning normal; therefore was told to do a Kegel exercise program since last fall (up to 50QC and 10 sec hold x 50 QC). Future Testing and Treatments Planned Pessary after PT. Treatment Goals Patient/Caregiver Goals Pt goal is to do a yoga class again. Pt goal is to be put on an appropriate HEP. Pt goal is to learn how to do a Kegel correctly. Pt goal is to teach proper body control and limits with lifting. Decrease pain with sexual intercourse. Prior Functional Status Baseline Function- ADL's Independent Baseline Function- Mobility Independent Baseline Function- Other Had urinary incontinence during aerobics, every time jumped. No pain with intercourse. Participated in yoga class. Current Functional Impairments (Reported) Functional Limitations- ADL's Urinary incontinence with a strong urge. Pressure in PF and LBP, causing her have to lie down. Having to push bladder up 3-4x /day. Functional Limitations- Mobility/Gait Walking 3-4 miles, but felt bladder drop by the time the walk was over. Functional Limitations- Recreation/ Not able to return to yoga Hobbies exercise. Functional Limitations- Other Wears one light pantiliner a day. Urinates 3X after going to bed and 8x during the day. Not able to delay urine for any length of time. Personal Factors Other Personal Factors That May Effect Has spouse who has Therapy/Recovery comorbidities that she feels she has to do heavy lifting activities (ex - gardening activities). PT-OP-C Subjective Start: 05/26/21 18:19 Freq: Status: Active Protocol: Document 06/29/21 11:22 LRN (Rec: 06/29/21 12:17 LRN [id number]) OP-PT Subjective Patient Comments Patient Comments Liked the ex's. Requests review of what she should be doing. Now has to manage her blood pressure. See's referring physician on 08/18/21 and will make appt to come to therapy 08/17/21 for recheck. Bowels much better, with mucilex voiding a couple times a day, type 3-4. Has been a little leakage of urine after drinking coffee, otherwise doing better. Pt states she is no longer catching her toes on the ground. PT-OP-I Pelvic Floor Start: 05/26/21 18:19 Freq: Status: Active Protocol: Document 06/01/21 11:26 LRN (Rec: 06/01/21 12:31 LRN [id number]) Pelvic Floor Assessment Urine Pelvic Floor Surgery No Urinary Symptoms Urge Sensation,Prolapse, Falling Out Feeling/Heavy Other Urinary Symptoms Urgency Leakage Size Small Leakage Cause Exercise,Urge Other Leakage Causes [place] Leaks Per Day 4/week Voiding Frequency 8 Nocturia 3 Pads Used In 24 Hours 1 Urine Pad Type Panty Liner Bowel Bowel Surgery No Bowel Symptoms Constipation Pelvic Clock Pelvic Clock Other Tender @ 6 O'Clock Pressure @ 3-6 O'Clock Prolapse Cystocele Grade 3 Prolapse Comments Uterus feels it has dropped Perineal Descent Resting Present Bearing Present Contraction Ability Voluntary Contraction Moderate Voluntary Relaxation Moderate Manual Muscle Testing Left 2 Manual Muscle Testing Right 3 Manual Muscle Testing Anterior 3 Manual Muscle Testing Posterior 3 Muscle Endurance (Seconds) 4 Number of Quick Contractions In 10 10 Seconds Comments Pelvic Floor Comments Pt assessed in supine. Pt has noticeable weakening of the PF contraction after 3-4 secs but was able to maintain a contraction for 10 secs. PT-OP-J Posture/Palpation/Skin Start: 05/26/21 18:19 Freq: Status: Active Protocol: Document 06/01/21 11:26 LRN (Rec: 06/01/21 12:31 LRN [id number]) Posture Evaluation Position Standing L-Spine Posture Decreased Lordosis Shoulder Posture (R) Elevated Ankle/Foot Posture (L) Calcaneal Eversion,(R) Calcaneal Eversion PT-OP-K Range of Motion Start: 05/26/21 18:19 Freq: Status: Active Protocol: Document 06/15/21 11:27 LRN (Rec: 06/15/21 12:23 LRN [id number]) Hip Goniometric Range of Motion Hip Right Passive Testing Position Supine Flexion w/Knee Flexed 130 Straight Leg Raise 90 Abduction 50 Internal Rotation 30 External Rotation 75 Left Passive Testing Position Supine Flexion w/Knee Flexed 130 Straight Leg Raise 90 Abduction 50 Internal Rotation 30 External Rotation 60 PT-OP-M Strength Start: 05/26/21 18:19 Freq: Status: Active Protocol: Document 06/01/21 11:26 LRN (Rec: 06/01/21 12:31 LRN [id number]) Trunk Strength Trunk Manual Muscle Testing Testing Position Supine Rotation Left 5 Normal Rotation Right 5 Normal Hip Strength Hip Manual Muscle Testing Right Comments Generally 5/5 Left Comments Generally 5/5 PT-OP-Q Treatments Start: 05/26/21 18:19 Freq: Status: Active Protocol: Document 06/29/21 11:22 LRN (Rec: 06/29/21 12:17 LRN [id number]) Therapeutic Exercises Supine Exercises Bowel massage Supine Exercise Name Bowel massage review Reps/Minutes 3' Kegel Supine Exercise Name Kegel on Wedge: 5 hold (I/S in how to progress to 10 in 7 days) Equipment Used Wedge Reps/Minutes 12' Chest breathing Supine Exercise Name Breathing with TA tight Reps/Minutes 10' Comments Much phy & v cuing used, but pt not able to breath with core stabilized. Sit <> Supine Supine Exercise Name Transfer with proper breathing > adding PF Side right Reps/Minutes 4x Comments v cuing needed to coordinate movement. Sit <> stand Supine Exercise Name Transfer training with proper breathing > adding PF Reps/Minutes 4' Comments v cuing needed to coordinate movement. LE Roll in/out/PF Supine Exercise Name LE Roll in/out w/PF Side bilateral Equipment Used Wedge, Lev 1 TB & Ball Reps/Minutes 10' Comments V cuing and I/S to coordinate mvmt, Self-Care/Home Management Treatment Education Other Education Discussed yoga techniques that would not be appropriate for increased pressure on her PF. Bladder retrainng. Educated pt in use of proper breathing with transfers to decrease pressure on the PF. Briefly discussed use of deep breathing for having a BM vs pushing to void. Activities Self-Care/Home Management Activities Issued & reviewed HEP: Sitting LE roll in/outs with TBand. PT-OP-T Assessment and Plan Start: 05/26/21 18:19 Freq: Status: Active Protocol: Document 06/29/21 11:22 LRN (Rec: 06/29/21 12:17 LRN [id number]) Physical Therapy Assessment Goals Four Impairment Constipation Short Term Goal (STG) Pt will be educated in proper hydration and levels and placed on bowel program. (06/09/21: Pt was educated in proper hydration levels). (06/22/21: Education in bowel program and bowel massage). STG Duration 06/09/21 (06/22/21: MET GOAL) Shelter Goal (LTG) Pt will have improved bowel function and be able to modify positioning on toilet and breathwork to minimize strain on PF. LTG Duration 08/30/21 (06/29/21: MET GOAL) Three Impairment PF/low back pain rated 2-5/10 Impairment Pain with intercourse. Short Term Goal (STG) Pt will experience decrease frequency onset of PF/low back pain. (06/29/21: LBP is much better, just a little tight, no pain) STG Duration 08/11/21 (06/29/21: MET GOAL) [employer] Goal (LTG) Decrease pain rating with sexual intercourse. LTG Duration 08/30/21 Two Impairment Prolapse limiting pt's ability to ex and do activities at home (gardening) Short Term Goal (STG) Pt will be educated in proper body mechanics and improve awareness of weight limits with lifting. (06/22/21: Pt educated in log roll transfer from [facility] with proper breathing) STG Duration 06/16/21 (06/22/21: Progressed ) [employer] Goal (LTG) Pt will be able to do a yoga class without prolapse worsening. LTG Duration 08/30/21 One Impairment Lacks HEP of isolated PF ex's and ex's targeting weak areas in the PF Short Term Goal (STG) Pt will be able to do a Kegel in isolation of substitute muscles and with good coordination of contraction with lift of PF. (06/22/21: Can do isolated Kegel from gluts and hip AD's, but not TA). (06/28/21: Mild use of TA with Kegel, but no use of gluts & hip AD's) STG Duration 06/30/21 (06/29/21: MET GOAL w/ hips on bolster) Shelter Goal (LTG) Pt will be put on a HEP of PF ex's in isolation of substitute muscles with focus on strengthening of weak areas (3-6 O'Clock) of PF clock. LTG Duration 08/30/21 Progress Towards Goals Progress Towards Goals Progressing Toward Goals Progress Comments LTG # 4 MET GOAL; GOAL #4 MET. STG #3 MET GOAL STG #1 MET GOAL Assessment Summary Assessment Pt is able to perform a PF contraction without use of substitute muscles of gluts and somewhat the TA. Pt is not catching her L toes with gait. She has improved bowel function with bowel movements daily and stool types 3-4. No more complaints of back pain, only tightness. Physical Therapy Plan Frequency and Duration Frequency of Treatment 1x/Week Plan of Care Start Date 06/01/21 Plan of Care End Date 08/30/21 Next Visit Focus/Plan Next Note Type Treatment Note Next Visit Plan Plan: 3 visits before 1 month vacation. On return, recheck (PN) 08/17/21 before returning to referring physician . Review proper breathing with Kegels & transfers. Review proper coordinated PF contraction with hips elevated . Assess pt's ability to perform PF contraction when doing a Kegel. Teach positioning for ease of BM voiding and proper breathing to decrease PF strain with BM. ?PF assessment w/EMG biofeedback for strength & endurance. Educate pt in proper breathing w/Kegel during exercise. Monitor for Kegels in isolation of substitute ms. Educate pt in vulvar care and genital hygiene. Increase strength of L side of PF.
--- NOTE | 2021-06-29 17:17 | PT.OTN ---
Current Diagnoses Constipation, unspecified (06/29/21) Muscle weakness (generalized) (06/29/21) Other specified disorders of muscle (06/29/21) Urge incontinence (06/29/21) Lower abdominal pain, unspecified (06/29/21) Physical Therapy Treatment Note PT-OP-A Visit Information Start: 05/26/21 18:19 Freq: Status: Active Protocol: Document 06/29/21 11:22 LRN (Rec: 06/29/21 12:17 LRN [id number]) Out-Patient Physical Therapy Visit Information Visit Information Visit Type Treatment Note Visit Start Time 11:22 Visit Stop Time 12:11 Total Visit Minutes 49 Visit Number 5 Evaluation Information Evaluation Date 06/01/21 Precautions Precautions HBP controlled by meds. PT-OP-B Current Condition Start: 05/26/21 18:19 Freq: Status: Active Protocol: Document 06/01/21 11:26 LRN (Rec: 06/01/21 12:31 LRN [id number]) Current Condition History of Current Condition Onset Date 1 yr ago Current Complaints Prolapse of bladder, inability to hold urine with an urge. History of Current Condition Pt reports bladder prolapse, hanging out and bulging out. A year ago spouse had knee surgery and while lifting she noticed her condition worsened. She was given a PF ex program by urologist and she states she has noticed some improvement with less leakage. She then saw a set up machinist and was told her problem is the prolapse and she had discussed pessary use and will try a pessary after having PT. States she runs damp most of the time. Has had to stop yoga, but would like to be able to do ex yoga and gardening. Prior Treatments and Tests Vaginal estrogen creme every other day. Dr Rowland did a bladder study and found bladder was functioning normal; therefore was told to do a Kegel exercise program since last fall (up to 50QC and 10 sec hold x 50 QC). Future Testing and Treatments Planned Pessary after PT. Treatment Goals Patient/Caregiver Goals Pt goal is to do a yoga class again. Pt goal is to be put on an appropriate HEP. Pt goal is to learn how to do a Kegel correctly. Pt goal is to teach proper body control and limits with lifting. Decrease pain with sexual intercourse. Prior Functional Status Baseline Function- ADL's Independent Baseline Function- Mobility Independent Baseline Function- Other Had urinary incontinence during aerobics, every time jumped. No pain with intercourse. Participated in yoga class. Current Functional Impairments (Reported) Functional Limitations- ADL's Urinary incontinence with a strong urge. Pressure in PF and LBP, causing her have to lie down. Having to push bladder up 3-4x /day. Functional Limitations- Mobility/Gait Walking 3-4 miles, but felt bladder drop by the time the walk was over. Functional Limitations- Recreation/ Not able to return to yoga Hobbies exercise. Functional Limitations- Other Wears one light pantiliner a day. Urinates 3X after going to bed and 8x during the day. Not able to delay urine for any length of time. Personal Factors Other Personal Factors That May Effect Has spouse who has Therapy/Recovery comorbidities that she feels she has to do heavy lifting activities (ex - gardening activities). PT-OP-C Subjective Start: 05/26/21 18:19 Freq: Status: Active Protocol: Document 06/29/21 11:22 LRN (Rec: 06/29/21 12:17 LRN [id number]) OP-PT Subjective Patient Comments Patient Comments Liked the ex's. Requests review of what she should be doing. Now has to manage her blood pressure. See's referring physician on 08/18/21 and will make appt to come to therapy 08/17/21 for recheck. Bowels much better, with mucilex voiding a couple times a day, type 3-4. Has been a little leakage of urine after drinking coffee, otherwise doing better. Pt states she is no longer catching her toes on the ground. PT-OP-I Pelvic Floor Start: 05/26/21 18:19 Freq: Status: Active Protocol: Document 06/01/21 11:26 LRN (Rec: 06/01/21 12:31 LRN [id number]) Pelvic Floor Assessment Urine Pelvic Floor Surgery No Urinary Symptoms Urge Sensation,Prolapse, Falling Out Feeling/Heavy Other Urinary Symptoms Urgency Leakage Size Small Leakage Cause Exercise,Urge Other Leakage Causes [place] Leaks Per Day 4/week Voiding Frequency 8 Nocturia 3 Pads Used In 24 Hours 1 Urine Pad Type Panty Liner Bowel Bowel Surgery No Bowel Symptoms Constipation Pelvic Clock Pelvic Clock Other Tender @ 6 O'Clock Pressure @ 3-6 O'Clock Prolapse Cystocele Grade 3 Prolapse Comments Uterus feels it has dropped Perineal Descent Resting Present Bearing Present Contraction Ability Voluntary Contraction Moderate Voluntary Relaxation Moderate Manual Muscle Testing Left 2 Manual Muscle Testing Right 3 Manual Muscle Testing Anterior 3 Manual Muscle Testing Posterior 3 Muscle Endurance (Seconds) 4 Number of Quick Contractions In 10 10 Seconds Comments Pelvic Floor Comments Pt assessed in supine. Pt has noticeable weakening of the PF contraction after 3-4 secs but was able to maintain a contraction for 10 secs. PT-OP-J Posture/Palpation/Skin Start: 05/26/21 18:19 Freq: Status: Active Protocol: Document 06/01/21 11:26 LRN (Rec: 06/01/21 12:31 LRN [id number]) Posture Evaluation Position Standing L-Spine Posture Decreased Lordosis Shoulder Posture (R) Elevated Ankle/Foot Posture (L) Calcaneal Eversion,(R) Calcaneal Eversion PT-OP-K Range of Motion Start: 05/26/21 18:19 Freq: Status: Active Protocol: Document 06/15/21 11:27 LRN (Rec: 06/15/21 12:23 LRN [id number]) Hip Goniometric Range of Motion Hip Right Passive Testing Position Supine Flexion w/Knee Flexed 130 Straight Leg Raise 90 Abduction 50 Internal Rotation 30 External Rotation 75 Left Passive Testing Position Supine Flexion w/Knee Flexed 130 Straight Leg Raise 90 Abduction 50 Internal Rotation 30 External Rotation 60 PT-OP-M Strength Start: 05/26/21 18:19 Freq: Status: Active Protocol: Document 06/01/21 11:26 LRN (Rec: 06/01/21 12:31 LRN [id number]) Trunk Strength Trunk Manual Muscle Testing Testing Position Supine Rotation Left 5 Normal Rotation Right 5 Normal Hip Strength Hip Manual Muscle Testing Right Comments Generally 5/5 Left Comments Generally 5/5 PT-OP-Q Treatments Start: 05/26/21 18:19 Freq: Status: Active Protocol: Document 06/29/21 11:22 LRN (Rec: 06/29/21 12:17 LRN [id number]) Therapeutic Exercises Supine Exercises Bowel massage Supine Exercise Name Bowel massage review Reps/Minutes 3' Kegel Supine Exercise Name Kegel on Wedge: 5 hold (I/S in how to progress to 10 in 7 days) Equipment Used Wedge Reps/Minutes 12' Chest breathing Supine Exercise Name Breathing with TA tight Reps/Minutes 10' Comments Much phy & v cuing used, but pt not able to breath with core stabilized. Sit <> Supine Supine Exercise Name Transfer with proper breathing > adding PF Side right Reps/Minutes 4x Comments v cuing needed to coordinate movement. Sit <> stand Supine Exercise Name Transfer training with proper breathing > adding PF Reps/Minutes 4' Comments v cuing needed to coordinate movement. LE Roll in/out/PF Supine Exercise Name LE Roll in/out w/PF Side bilateral Equipment Used Wedge, Lev 1 TB & Ball Reps/Minutes 10' Comments V cuing and I/S to coordinate mvmt, Self-Care/Home Management Treatment Education Other Education Discussed yoga techniques that would not be appropriate for increased pressure on her PF. Bladder retrainng. Educated pt in use of proper breathing with transfers to decrease pressure on the PF. Briefly discussed use of deep breathing for having a BM vs pushing to void. Educated pt in Bladder retraining. Activities Self-Care/Home Management Activities Issued & reviewed HEP: Sitting LE roll in/outs with TBand. PT-OP-T Assessment and Plan Start: 05/26/21 18:19 Freq: Status: Active Protocol: Document 06/29/21 11:22 LRN (Rec: 06/29/21 12:17 LRN [id number]) Physical Therapy Assessment Goals Four Impairment Constipation Short Term Goal (STG) Pt will be educated in proper hydration and levels and placed on bowel program. (06/09/21: Pt was educated in proper hydration levels). (06/22/21: Education in bowel program and bowel massage). STG Duration 06/09/21 (06/22/21: MET GOAL) Mcc Goal (LTG) Pt will have improved bowel function and be able to modify positioning on toilet and breathwork to minimize strain on PF. LTG Duration 08/30/21 (06/29/21: MET GOAL) Three Impairment PF/low back pain rated 2-5/10 Impairment Pain with intercourse. Short Term Goal (STG) Pt will experience decrease frequency onset of PF/low back pain. (06/29/21: LBP is much better, just a little tight, no pain) STG Duration 08/11/21 (06/29/21: MET GOAL) Analyst [employer] Goal (LTG) Decrease pain rating with sexual intercourse. LTG Duration 08/30/21 Two Impairment Prolapse limiting pt's ability to ex and do activities at home (gardening) Short Term Goal (STG) Pt will be educated in proper body mechanics and improve awareness of weight limits with lifting. (06/22/21: Pt educated in log roll transfer from int with proper breathing) STG Duration 06/16/21 (06/22/21: Progressed ) Mcc Goal (LTG) Pt will be able to do a yoga class without prolapse worsening. LTG Duration 08/30/21 One Impairment Lacks HEP of isolated PF ex's and ex's targeting weak areas in the PF Short Term Goal (STG) Pt will be able to do a Kegel in isolation of substitute muscles and with good coordination of contraction with lift of PF. (06/22/21: Can do isolated Kegel from gluts and hip AD's, but not TA). (06/28/21: Mild use of TA with Kegel, but no use of gluts & hip AD's) STG Duration 06/30/21 (06/29/21: MET GOAL w/ hips on bolster) Analyst [employer] Goal (LTG) Pt will be put on a HEP of PF ex's in isolation of substitute muscles with focus on strengthening of weak areas (3-6 O'Clock) of PF clock. LTG Duration 08/30/21 Progress Towards Goals Progress Towards Goals Progressing Toward Goals Progress Comments LTG # 4 MET GOAL; GOAL #4 MET. STG #3 MET GOAL STG #1 MET GOAL Assessment Summary Assessment Pt is able to perform a PF contraction without use of substitute muscles of gluts and somewhat the TA. Pt is not catching her L toes with gait. She has improved bowel function with bowel movements daily and stool types 3-4. No more complaints of back pain, only tightness. Physical Therapy Plan Frequency and Duration Frequency of Treatment 1x/Week Plan of Care Start Date 06/01/21 Plan of Care End Date 08/30/21 Next Visit Focus/Plan Next Note Type Treatment Note Next Visit Plan Plan: 3 visits before 1 month vacation. On return, recheck (PN) 08/17/21 before returning to referring physician . Review proper breathing with Kegels & transfers. Review proper coordinated PF contraction with hips elevated . Assess pt's ability to perform PF contraction when doing a Kegel. Teach positioning for ease of BM voiding and proper breathing to decrease PF strain with BM. ?PF assessment w/EMG biofeedback for strength & endurance. Educate pt in proper breathing w/Kegel during exercise. Monitor for Kegels in isolation of substitute ms. Educate pt in vulvar care and genital hygiene. Increase strength of L side of PF.
--- NOTE | 2021-07-07 16:15 | PT.OTN ---
Current Diagnoses Constipation, unspecified (07/07/21) Muscle weakness (generalized) (07/07/21) Other specified disorders of muscle (07/07/21) Urge incontinence (07/07/21) Lower abdominal pain, unspecified (07/07/21) Physical Therapy Treatment Note PT-OP-A Visit Information Start: 05/26/21 18:19 Freq: Status: Active Protocol: Document 07/07/21 13:05 LRN (Rec: 07/07/21 16:14 LRN [id number]) Out-Patient Physical Therapy Visit Information Visit Information Visit Type Treatment Note Visit Start Time 13:05 Visit Stop Time 13:45 Total Visit Minutes 53 Visit Number 6 Evaluation Information Evaluation Date 06/01/21 Precautions Precautions HBP controlled by meds. PT-OP-B Current Condition Start: 05/26/21 18:19 Freq: Status: Active Protocol: Document 06/01/21 11:26 LRN (Rec: 06/01/21 12:31 LRN [id number]) Current Condition History of Current Condition Onset Date 1 yr ago Current Complaints Prolapse of bladder, inability to hold urine with an urge. History of Current Condition Pt reports bladder prolapse, hanging out and bulging out. A year ago spouse had knee surgery and while lifting she noticed her condition worsened. She was given a PF ex program by urologist and she states she has noticed some improvement with less leakage. She then saw a service desk agent and was told her problem is the prolapse and she had discussed pessary use and will try a pessary after having PT. States she runs damp most of the time. Has had to stop yoga, but would like to be able to do ex yoga and gardening. Prior Treatments and Tests Vaginal estrogen creme every other day. Dr Rowland did a bladder study and found bladder was functioning normal; therefore was told to do a Kegel exercise program since last fall (up to 50QC and 10 sec hold x 50 QC). Future Testing and Treatments Planned Pessary after PT. Treatment Goals Patient/Caregiver Goals Pt goal is to do a yoga class again. Pt goal is to be put on an appropriate HEP. Pt goal is to learn how to do a Kegel correctly. Pt goal is to teach proper body control and limits with lifting. Decrease pain with sexual intercourse. Prior Functional Status Baseline Function- ADL's Independent Baseline Function- Mobility Independent Baseline Function- Other Had urinary incontinence during aerobics, every time jumped. No pain with intercourse. Participated in yoga class. Current Functional Impairments (Reported) Functional Limitations- ADL's Urinary incontinence with a strong urge. Pressure in PF and LBP, causing her have to lie down. Having to push bladder up 3-4x /day. Functional Limitations- Mobility/Gait Walking 3-4 miles, but felt bladder drop by the time the walk was over. Functional Limitations- Recreation/ Not able to return to yoga Hobbies exercise. Functional Limitations- Other Wears one light pantiliner a day. Urinates 3X after going to bed and 8x during the day. Not able to delay urine for any length of time. Personal Factors Other Personal Factors That May Effect Has spouse who has Therapy/Recovery comorbidities that she feels she has to do heavy lifting activities (ex - gardening activities). PT-OP-C Subjective Start: 05/26/21 18:19 Freq: Status: Active Protocol: Document 07/07/21 13:05 LRN (Rec: 07/07/21 16:14 LRN [id number]) OP-PT Subjective Patient Comments Patient Comments First of week, thought marty was doing better, could automatically activate her TA, but last couple of days is not sure. Still having bulging of bladder. Bladder control is much better. Bowels are better. PT-OP-I Pelvic Floor Start: 05/26/21 18:19 Freq: Status: Active Protocol: Document 07/07/21 13:05 LRN (Rec: 07/07/21 16:14 LRN [id number]) Pelvic Floor Assessment Prolapse Cystocele Grade 2 Prolapse Comments Standing PT-OP-J Posture/Palpation/Skin Start: 05/26/21 18:19 Freq: Status: Active Protocol: Document 06/01/21 11:26 LRN (Rec: 06/01/21 12:31 LRN [id number]) Posture Evaluation Position Standing L-Spine Posture Decreased Lordosis Shoulder Posture (R) Elevated Ankle/Foot Posture (L) Calcaneal Eversion,(R) Calcaneal Eversion PT-OP-K Range of Motion Start: 05/26/21 18:19 Freq: Status: Active Protocol: Document 06/15/21 11:27 LRN (Rec: 06/15/21 12:23 LRN [id number]) Hip Goniometric Range of Motion Hip Right Passive Testing Position Supine Flexion w/Knee Flexed 130 Straight Leg Raise 90 Abduction 50 Internal Rotation 30 External Rotation 75 Left Passive Testing Position Supine Flexion w/Knee Flexed 130 Straight Leg Raise 90 Abduction 50 Internal Rotation 30 External Rotation 60 PT-OP-M Strength Start: 05/26/21 18:19 Freq: Status: Active Protocol: Document 06/01/21 11:26 LRN (Rec: 06/01/21 12:31 LRN [id number]) Trunk Strength Trunk Manual Muscle Testing Testing Position Supine Rotation Left 5 Normal Rotation Right 5 Normal Hip Strength Hip Manual Muscle Testing Right Comments Generally 5/5 Left Comments Generally 5/5 PT-OP-Q Treatments Start: 05/26/21 18:19 Freq: Status: Active Protocol: Document 07/07/21 13:05 LRN (Rec: 07/07/21 16:14 LRN [id number]) Therapeutic Exercises Supine Exercises Hands/Knees Push Supine Exercise Name Hands/Knees Push Equipment Used Wedge, Red ball Reps/Minutes 3' Happy Baby Pose Supine Exercise Name Happy Baby Pose Equipment Used Wedge Reps/Minutes 3' Kegel Supine Exercise Name Kegel on Wedge: 5 hold Equipment Used Wedge Reps/Minutes 3' Comments Assessed Chest breathing Supine Exercise Name Breathing with TA tight - check Reps/Minutes 3' Comments Assessed Breath with core stabilized. Sit <> stand Supine Exercise Name Transfer Training Reps/Minutes 2' Comments Good awareness of coordinating PF contraction and breath with transfer. Standing Exercises Kegel Standing Exercise Name Kegel Reps/Minutes 3' Comments Bladder assessment Self-Care/Home Management Treatment Education Other Education Discssed pt's prolapse and discussed reason'g for prolapse (diet, ex, fluid intake/output). Educated. discussed & issued handout for: proper body mechanics for dialy activities . Discussed and educated pt in general vulvar care and genital hygiene. Activities Self-Care/Home Management Activities Issued & reviewed HEP: Happy Baby Pose. I/S pt to focus on PF contractions with exhale with ADLs and transfers. Discussed the same for movements with proper body mechanics. PT-OP-T Assessment and Plan Start: 05/26/21 18:19 Freq: Status: Active Protocol: Document 07/07/21 13:05 LRN (Rec: 07/07/21 16:14 LRN [id number]) Physical Therapy Assessment Goals Four Impairment Constipation Short Term Goal (STG) Pt will be educated in proper hydration and levels and placed on bowel program. (06/09/21: Pt was educated in proper hydration levels). (06/22/21: Education in bowel program and bowel massage). STG Duration 06/09/21 (06/22/21: MET GOAL) Heavy Media Operator Goal (LTG) Pt will have improved bowel function and be able to modify positioning on toilet and breathwork to minimize strain on PF. LTG Duration 08/30/21 (06/29/21: MET GOAL) Three Impairment PF/low back pain rated 2-5/10 Impairment Pain with intercourse. Short Term Goal (STG) Pt will experience decrease frequency onset of PF/low back pain. (06/29/21: LBP is much better, just a little tight, no pain) STG Duration 08/11/21 (06/29/21: MET GOAL) Residential Goal (LTG) Decrease pain rating with sexual intercourse. LTG Duration 08/30/21 Two Impairment Prolapse limiting pt's ability to ex and do activities at home (gardening) Short Term Goal (STG) Pt will be educated in proper body mechanics and improve awareness of weight limits with lifting. (06/22/21: Pt educated in log roll transfer from plinth with proper breathing) (07/07/21: Pt educated in proper colvin mechanics and breathing technique with lifting, bending, and exercise . STG Duration 06/16/21 (06/09/21: MET GOAL) Residential Goal (LTG) Pt will be able to do a yoga class without prolapse worsening. LTG Duration 08/30/21 One Impairment Lacks HEP of isolated PF ex's and ex's targeting weak areas in the PF Short Term Goal (STG) Pt will be able to do a Kegel in isolation of substitute muscles and with good coordination of contraction with lift of PF. (06/22/21: Can do isolated Kegel from gluts and hip AD's, but not TA). (06/28/21: Mild use of TA with Kegel, but no use of gluts & hip AD's) STG Duration 06/30/21 (06/29/21: MET GOAL w/ hips on bolster) Heavy Media Operator Goal (LTG) Pt will be put on a HEP of PF ex's in isolation of substitute muscles with focus on strengthening of weak areas (3-6 O'Clock) of PF clock. LTG Duration 08/30/21 Progress Towards Goals Progress Comments STG #2: MET GOAL Assessment Summary Assessment Pt cystocele was not past vaginal opening today in standing (grade 2). Pt aware of feeling cystocele is intermittent. Pt wearing tight clothing, but states she doesn't at home. Pt has not had sexual intercourse; therefore unknown if pt pain with intercourse is same. Manual palpation needed to assess for tightness. Physical Therapy Plan Frequency and Duration Frequency of Treatment 1x/Week Plan of Care Start Date 06/01/21 Plan of Care End Date 08/30/21 Next Visit Focus/Plan Next Note Type Treatment Note Next Visit Plan 2 visits before 1 month vacation. Recheck (PN) on return, 08/17/21 before returning to referring physician 08/18/21. POC: Review/assess proper breathing with Kegels & transfers and with exercise. Strengthen (HEP): L side of PF (3-6 of PF clock). Assess pt's ability to perform PF contraction when doing a Kegel and teach coordinated PF contraction with hips elevated. Teach positioning for ease of BM voiding and again review breathing to decrease PF strain with BM. Assess yoga moves for appropriateness. Monitor for Kegels in isolation of substitute ms. ?PF assessment w/EMG biofeedback for strength & endurance.
--- NOTE | 2021-07-14 12:43 | PT.OTN ---
Current Diagnoses Constipation, unspecified (07/14/21) Muscle weakness (generalized) (07/14/21) Other specified disorders of muscle (07/14/21) Urge incontinence (07/14/21) Lower abdominal pain, unspecified (07/14/21) Physical Therapy Treatment Note PT-OP-A Visit Information Start: 05/26/21 18:19 Freq: Status: Active Protocol: Document 07/14/21 11:22 LRN (Rec: 07/14/21 11:35 LRN [id number]) Out-Patient Physical Therapy Visit Information Visit Information Visit Type Treatment Note Visit Start Time 11:22 Visit Stop Time 12:15 Total Visit Minutes 53 Visit Number 7 Evaluation Information Evaluation Date 06/01/21 Precautions Precautions HBP controlled by meds. PT-OP-B Current Condition Start: 05/26/21 18:19 Freq: Status: Active Protocol: Document 06/01/21 11:26 LRN (Rec: 06/01/21 12:31 LRN [id number]) Current Condition History of Current Condition Onset Date 1 yr ago Current Complaints Prolapse of bladder, inability to hold urine with an urge. History of Current Condition Pt reports bladder prolapse, hanging out and bulging out. A year ago spouse had knee surgery and while lifting she noticed her condition worsened. She was given a PF ex program by urologist and she states she has noticed some improvement with less leakage. She then saw a airline dispatcher and was told her problem is the prolapse and she had discussed pessary use and will try a pessary after having PT. States she runs damp most of the time. Has had to stop yoga, but would like to be able to do ex yoga and gardening. Prior Treatments and Tests Vaginal estrogen creme every other day. Dr Rowland did a bladder study and found bladder was functioning normal; therefore was told to do a Kegel exercise program since last fall (up to 50QC and 10 sec hold x 50 QC). Future Testing and Treatments Planned Pessary after PT. Treatment Goals Patient/Caregiver Goals Pt goal is to do a yoga class again. Pt goal is to be put on an appropriate HEP. Pt goal is to learn how to do a Kegel correctly. Pt goal is to teach proper body control and limits with lifting. Decrease pain with sexual intercourse. Prior Functional Status Baseline Function- ADL's Independent Baseline Function- Mobility Independent Baseline Function- Other Had urinary incontinence during aerobics, every time jumped. No pain with intercourse. Participated in yoga class. Current Functional Impairments (Reported) Functional Limitations- ADL's Urinary incontinence with a strong urge. Pressure in PF and LBP, causing her have to lie down. Having to push bladder up 3-4x /day. Functional Limitations- Mobility/Gait Walking 3-4 miles, but felt bladder drop by the time the walk was over. Functional Limitations- Recreation/ Not able to return to yoga Hobbies exercise. Functional Limitations- Other Wears one light pantiliner a day. Urinates 3X after going to bed and 8x during the day. Not able to delay urine for any length of time. Personal Factors Other Personal Factors That May Effect Has spouse who has Therapy/Recovery comorbidities that she feels she has to do heavy lifting activities (ex - gardening activities). PT-OP-C Subjective Start: 05/26/21 18:19 Freq: Status: Active Protocol: Document 07/14/21 11:22 LRN (Rec: 07/14/21 11:35 LRN [id number]) OP-PT Subjective Patient Comments Patient Comments States last night took alleve and had an allergic reaction. Doesn't feel too well , so wnts to go through handouts. Wants to get information today . Leaving for vacation 07/30/21 . PT-OP-I Pelvic Floor Start: 05/26/21 18:19 Freq: Status: Active Protocol: Document 07/07/21 13:05 LRN (Rec: 07/07/21 16:14 LRN [id number]) Pelvic Floor Assessment Prolapse Cystocele Grade 2 Prolapse Comments Standing PT-OP-J Posture/Palpation/Skin Start: 05/26/21 18:19 Freq: Status: Active Protocol: Document 06/01/21 11:26 LRN (Rec: 06/01/21 12:31 LRN [id number]) Posture Evaluation Position Standing L-Spine Posture Decreased Lordosis Shoulder Posture (R) Elevated Ankle/Foot Posture (L) Calcaneal Eversion,(R) Calcaneal Eversion PT-OP-K Range of Motion Start: 05/26/21 18:19 Freq: Status: Active Protocol: Document 06/15/21 11:27 LRN (Rec: 06/15/21 12:23 LRN [id number]) Hip Goniometric Range of Motion Hip Right Passive Testing Position Supine Flexion w/Knee Flexed 130 Straight Leg Raise 90 Abduction 50 Internal Rotation 30 External Rotation 75 Left Passive Testing Position Supine Flexion w/Knee Flexed 130 Straight Leg Raise 90 Abduction 50 Internal Rotation 30 External Rotation 60 PT-OP-M Strength Start: 05/26/21 18:19 Freq: Status: Active Protocol: Document 06/01/21 11:26 LRN (Rec: 06/01/21 12:31 LRN [id number]) Trunk Strength Trunk Manual Muscle Testing Testing Position Supine Rotation Left 5 Normal Rotation Right 5 Normal Hip Strength Hip Manual Muscle Testing Right Comments Generally 5/5 Left Comments Generally 5/5 PT-OP-Q Treatments Start: 05/26/21 18:19 Freq: Status: Active Protocol: Document 07/14/21 11:22 LRN (Rec: 07/14/21 11:35 LRN [id number]) Therapeutic Exercises Standing Exercises Posture training Standing Exercise Name Posture training for anterior tilt of pelvis & awareness of anter PF contr Reps/Minutes 3' Yoga arms overhead Standing Exercise Name Yoga standing to arms overhead : Exhale as arm lifts/PF tightening. Reps/Minutes 3x Yoga hamsting stretch Standing Exercise Name Yoga hamstring stretch position for PF tightening & before sitting Reps/Minutes 10' Comments Much training for awareness of bladder lift with PF contraction/breathing. Stepping up step stool Standing Exercise Name Training for getting up into truck: Exhale/PF tight stepping up Side left Equipment Used Step stool Reps/Minutes 10' Comments Sitting: PF contraction training Kegel Standing Exercise Name Kegel in isolation of gluteals . Reps/Minutes 3' Self-Care/Home Management Treatment Education Other Education Discussed pt's condition and reviewed appropriate water intake. Educated and discussed at length pt conditions for pessary use, pelvic tissue helath, brief discussion of pessary types that pt is to discuss with MD, benefits of pessary use. Recommended pt discuss with MD. Educated and reviewed handout for of pelvic anatomy and interaction of organs. Educated/reviewed with pt proper exer coordination of movement, breathing and PF contractions. Activities Self-Care/Home Management Activities Discussed and issued HEP: Yoga hamstring stretch position for PF strengthening. DIscussed & issued HEP: Standing Plie for PF strengthening with added isolation of PF from gluteal muscles to prevent clinching of buttocks and stressed proper posturing and breathing during exercise. PT-OP-T Assessment and Plan Start: 05/26/21 18:19 Freq: Status: Active Protocol: Document 07/14/21 11:22 LRN (Rec: 07/14/21 11:35 LRN [id number]) Physical Therapy Assessment Goals Four Impairment Constipation Short Term Goal (STG) Pt will be educated in proper hydration and levels and placed on bowel program. (06/09/21: Pt was educated in proper hydration levels). (06/22/21: Education in bowel program and bowel massage). STG Duration 06/09/21 (06/22/21: MET GOAL) Splitter Operator Goal (LTG) Pt will have improved bowel function and be able to modify positioning on toilet and breathwork to minimize strain on PF. LTG Duration 08/30/21 (06/29/21: MET GOAL) Three Impairment PF/low back pain rated 2-5/10 Impairment Pain with intercourse. Short Term Goal (STG) Pt will experience decrease frequency onset of PF/low back pain. (06/29/21: LBP is much better, just a little tight, no pain) STG Duration 08/11/21 (06/29/21: MET GOAL) Splitter Operator Goal (LTG) Decrease pain rating with sexual intercourse. LTG Duration 08/30/21 Two Impairment Prolapse limiting pt's ability to ex and do activities at home (gardening) Short Term Goal (STG) Pt will be educated in proper body mechanics and improve awareness of weight limits with lifting. (06/22/21: Pt educated in log roll transfer from plint with proper breathing) (07/07/21: Pt educated in proper colvin mechanics and breathing technique with lifting, bending, and exercise . STG Duration 06/16/21 (06/09/21: MET GOAL) Splitter Operator Goal (LTG) Pt will be able to do a yoga class without prolapse worsening. (07/14/21: Pt educated in PF strengthening ex's during yoga moves of hamstring stretch and arms overhead positioning) . LTG Duration 08/30/21 (07/14/21: Progressing) One Impairment Lacks HEP of isolated PF ex's and ex's targeting weak areas in the PF Short Term Goal (STG) Pt will be able to do a Kegel in isolation of substitute muscles and with good coordination of contraction with lift of PF. (06/22/21: Can do isolated Kegel from gluts and hip AD's, but not TA). (06/28/21: Mild use of TA with Kegel, but no use of gluts & hip AD's) STG Duration 06/30/21 (06/29/21: MET GOAL w/ hips on bolster) Prison Goal (LTG) Pt will be put on a HEP of PF ex's in isolation of substitute muscles with focus on strengthening of weak areas (3-6 O'Clock) of PF clock. LTG Duration 08/30/21 Assessment Summary Assessment Pt had fair awareness of bladder lifting with PF strengthening in a yoga hamstring stretch position. Pt was not feeling her bladder dropped today. She needs time and further training to coordinate breathing with exercises. Physical Therapy Plan Frequency and Duration Frequency of Treatment 1x/Week Plan of Care Start Date 06/01/21 Plan of Care End Date 08/30/21 Next Visit Focus/Plan Next Note Type Treatment Note Next Visit Plan Appt added, therefore 2 visits before 1 month vacation. Recheck (PN) on return, before returning to referring physician 08/18/21. POC: Review/assess proper breathing with Kegels ( isolation from gluteals) & transfers and with exercise ( stepping up into truck). Strengthen (HEP): L side of PF (3-6 of PF clock). Assess pt's ability to perform PF contraction when doing a Kegel and teach coordinated PF contraction with hips elevated. Teach positioning and breathing for ease of BM voiding. Assess yoga moves for appropriateness. Monitor for Kegels in isolation of substitute ms. ?PF assessment w/EMG biofeedback for strength & endurance.
--- NOTE | 2021-07-17 16:16 | PT.OTN ---
Current Diagnoses Constipation, unspecified (07/17/21) Muscle weakness (generalized) (07/17/21) Other specified disorders of muscle (07/17/21) Urge incontinence (07/17/21) Lower abdominal pain, unspecified (07/17/21) Physical Therapy Treatment Note PT-OP-A Visit Information Start: 05/26/21 18:19 Freq: Status: Active Protocol: Document 07/17/21 10:31 LRN (Rec: 07/17/21 11:19 LRN [id number]) Out-Patient Physical Therapy Visit Information Visit Information Visit Type Treatment Note Visit Start Time 10:31 Visit Stop Time 11:15 Total Visit Minutes 44 Visit Number 8 Evaluation Information Evaluation Date 06/01/21 Precautions Precautions HBP controlled by meds. PT-OP-B Current Condition Start: 05/26/21 18:19 Freq: Status: Active Protocol: Document 06/01/21 11:26 LRN (Rec: 06/01/21 12:31 LRN [id number]) Current Condition History of Current Condition Onset Date 1 yr ago Current Complaints Prolapse of bladder, inability to hold urine with an urge. History of Current Condition Pt reports bladder prolapse, hanging out and bulging out. A year ago spouse had knee surgery and while lifting she noticed her condition worsened. She was given a PF ex program by urologist and she states she has noticed some improvement with less leakage. She then saw a veterinary hospital attendant and was told her problem is the prolapse and she had discussed pessary use and will try a pessary after having PT. States she runs damp most of the time. Has had to stop yoga, but would like to be able to do ex yoga and gardening. Prior Treatments and Tests Vaginal estrogen creme every other day. Dr Rowland did a bladder study and found bladder was functioning normal; therefore was told to do a Kegel exercise program since last fall (up to 50QC and 10 sec hold x 50 QC). Future Testing and Treatments Planned Pessary after PT. Treatment Goals Patient/Caregiver Goals Pt goal is to do a yoga class again. Pt goal is to be put on an appropriate HEP. Pt goal is to learn how to do a Kegel correctly. Pt goal is to teach proper body control and limits with lifting. Decrease pain with sexual intercourse. Prior Functional Status Baseline Function- ADL's Independent Baseline Function- Mobility Independent Baseline Function- Other Had urinary incontinence during aerobics, every time jumped. No pain with intercourse. Participated in yoga class. Current Functional Impairments (Reported) Functional Limitations- ADL's Urinary incontinence with a strong urge. Pressure in PF and LBP, causing her have to lie down. Having to push bladder up 3-4x /day. Functional Limitations- Mobility/Gait Walking 3-4 miles, but felt bladder drop by the time the walk was over. Functional Limitations- Recreation/ Not able to return to yoga Hobbies exercise. Functional Limitations- Other Wears one light pantiliner a day. Urinates 3X after going to bed and 8x during the day. Not able to delay urine for any length of time. Personal Factors Other Personal Factors That May Effect Has spouse who has Therapy/Recovery comorbidities that she feels she has to do heavy lifting activities (ex - gardening activities). PT-OP-C Subjective Start: 05/26/21 18:19 Freq: Status: Active Protocol: Document 07/17/21 10:31 LRN (Rec: 07/17/21 11:19 LRN [id number]) OP-PT Subjective Patient Comments Patient Comments Pt reports having a very good weekend. States she found out that the Miral[employer] is a sales counselor when looking at why she passed out last week. PT-OP-I Pelvic Floor Start: 05/26/21 18:19 Freq: Status: Active Protocol: Document 07/07/21 13:05 LRN (Rec: 07/07/21 16:14 LRN [id number]) Pelvic Floor Assessment Prolapse Cystocele Grade 2 Prolapse Comments Standing PT-OP-J Posture/Palpation/Skin Start: 05/26/21 18:19 Freq: Status: Active Protocol: Document 06/01/21 11:26 LRN (Rec: 06/01/21 12:31 LRN [id number]) Posture Evaluation Position Standing L-Spine Posture Decreased Lordosis Shoulder Posture (R) Elevated Ankle/Foot Posture (L) Calcaneal Eversion,(R) Calcaneal Eversion PT-OP-K Range of Motion Start: 05/26/21 18:19 Freq: Status: Active Protocol: Document 06/15/21 11:27 LRN (Rec: 06/15/21 12:23 LRN [id number]) Hip Goniometric Range of Motion Hip Right Passive Testing Position Supine Flexion w/Knee Flexed 130 Straight Leg Raise 90 Abduction 50 Internal Rotation 30 External Rotation 75 Left Passive Testing Position Supine Flexion w/Knee Flexed 130 Straight Leg Raise 90 Abduction 50 Internal Rotation 30 External Rotation 60 PT-OP-M Strength Start: 05/26/21 18:19 Freq: Status: Active Protocol: Document 06/01/21 11:26 LRN (Rec: 06/01/21 12:31 LRN [id number]) Trunk Strength Trunk Manual Muscle Testing Testing Position Supine Rotation Left 5 Normal Rotation Right 5 Normal Hip Strength Hip Manual Muscle Testing Right Comments Generally 5/5 Left Comments Generally 5/5 PT-OP-Q Treatments Start: 05/26/21 18:19 Freq: Status: Active Protocol: Document 07/17/21 10:31 LRN (Rec: 07/17/21 11:19 LRN [id number]) Therapeutic Exercises Supine Exercises L BKFO/PF/TA/breathing Supine Exercise Name L BKFO w/PF/TA/breathing Side left Reps/Minutes 4' Comments v cuing for PF contraction w/ hip AD/TA/breathing coordination L BKFO/breathing Supine Exercise Name L BKFO w/AD on exhale and AD on inhale Side left Reps/Minutes 3' Comments v cuing needed for breathing with hip AD L BKFO/TA Supine Exercise Name PF long hold & Quick Flick with TA Side left Reps/Minutes 3' Comments v cuing needed for TA holding L BKFO/PF Supine Exercise Name PF long holds & Quick Flicks Side left Reps/Minutes 3' Comments v cuing needed for PF contraction with hip AD Kegel Supine Exercise Name Kegel in isolation of gluteals , hip AD & TA Reps/Minutes 3' Comments v cuing needed for coordinating breathing with PF contraction Sit <> Supine Supine Exercise Name Sit<>Supine with coordinated breathing & PF Reps/Minutes x1 each Comments v cuing given for coordinated breathing with PF contraction Sit <> stand Supine Exercise Name Sit<>Stand with coordinated breathing & PF Reps/Minutes x2 Comments v cuing given for coordinated breathing with PF contraction Sidelying Exercises L hip AD Sidelying Exercise Name L hip AD/PF long hold & quick flick tightening Side left Reps/Minutes 4' Comments cuing given for coordinated breathing Standing Exercises Plie Standing Exercise Name Plie w/PF/breathing/arms overhead Reps/Minutes 4' Comments v cuing for breathing and PF tightening Yoga hamsting stretch Standing Exercise Name Yoga hamstring stretch position for PF tightening & before sitting Reps/Minutes 4' Comments Much training for awareness of bladder lift with PF contraction/breathing. Self-Care/Home Management Treatment Education Patient Education Home Exercise Program Other Education Discussed & reviewed pt's POC. Discussed and reviewed previously issued HEP Activities Self-Care/Home Management Activities Issued & reviewed HEP: supine (BKFO), sidelie and standing hip AD with PF contraction. PT-OP-T Assessment and Plan Start: 05/26/21 18:19 Freq: Status: Active Protocol: Document 07/17/21 10:31 LRN (Rec: 07/17/21 11:19 LRN [id number]) Physical Therapy Assessment Goals Four Impairment Constipation Short Term Goal (STG) Pt will be educated in proper hydration and levels and placed on bowel program. (06/09/21: Pt was educated in proper hydration levels). (06/22/21: Education in bowel program and bowel massage). STG Duration 06/09/21 (06/22/21: MET GOAL) Reptile Keeper Goal (LTG) Pt will have improved bowel function and be able to modify positioning on toilet and breathwork to minimize strain on PF. LTG Duration 08/30/21 (06/29/21: MET GOAL) Three Impairment PF/low back pain rated 2-5/10 Impairment Pain with intercourse. Short Term Goal (STG) Pt will experience decrease frequency onset of PF/low back pain. (06/29/21: LBP is much better, just a little tight, no pain) STG Duration 08/11/21 (06/29/21: MET GOAL) Fdc Goal (LTG) Decrease pain rating with sexual intercourse. LTG Duration 08/30/21 Two Impairment Prolapse limiting pt's ability to ex and do activities at home (gardening) Short Term Goal (STG) Pt will be educated in proper body mechanics and improve awareness of weight limits with lifting. (06/22/21: Pt educated in log roll transfer from int with proper breathing) (07/07/21: Pt educated in proper colvin mechanics and breathing technique with lifting, bending, and exercise . STG Duration 06/16/21 (06/09/21: MET GOAL) Reptile Keeper Goal (LTG) Pt will be able to do a yoga class without prolapse worsening. (07/14/21: Pt educated in PF strengthening ex's during yoga moves of hamstring stretch and arms overhead positioning) . LTG Duration 08/30/21 (07/14/21: Progressing) One Impairment Lacks HEP of isolated PF ex's and ex's targeting weak areas in the PF Short Term Goal (STG) Pt will be able to do a Kegel in isolation of substitute muscles and with good coordination of contraction with lift of PF. (06/22/21: Can do isolated Kegel from gluts and hip AD's, but not TA). (06/28/21: Mild use of TA with Kegel, but no use of gluts & hip AD's) STG Duration 06/30/21 (06/29/21: MET GOAL) Fdc Goal (LTG) Pt will be put on a HEP of PF ex's in isolation of substitute muscles with focus on strengthening of weak areas (3-6 O'Clock) of PF clock. (07/17/21: Added standing plie with TA added) (07/17/21: Added L BKFO/PF and L hip AD/PF in L sidelie and standing). LTG Duration 08/30/21 (07/17/21: Progressed) Progress Towards Goals Progress Comments Progressed HEP: Strengthening of L BKFO/PF and L hip AD/PF in L sidelie and standing). Assessment Summary Assessment Pt able to perform a PF contraction with slight addition from gluteals and has a good understanding with coordinated breathing with transfers. Pt has improved awareness of her bladder when it is dropped and is able to maintain better bladder positioning with coordinated breathing/PF contraction and exerercise. TA added today to Plie ex. Physical Therapy Plan Frequency and Duration Frequency of Treatment 1x/Week Plan of Care Start Date 06/01/21 Plan of Care End Date 08/30/21 Next Visit Focus/Plan Next Note Type Treatment Note Next Visit Plan Appt added, therefore 1 visit before 1 month vacation. Recheck (PN) on return, before returning to referring physician 08/18/21. Recheck PF strength and tenderness. Assess HEP issued: L side of PF (3-6 of PF clock). Assess yoga moves for appropriateness. Teach positioning and breathing for ease of BM voiding. ?PF assessment w/EMG biofeedback for strength & endurance.
--- NOTE | 2021-07-27 12:26 | PT.OTN ---
Current Diagnoses Constipation, unspecified (07/27/21) Muscle weakness (generalized) (07/27/21) Other specified disorders of muscle (07/27/21) Urge incontinence (07/27/21) Lower abdominal pain, unspecified (07/27/21) Physical Therapy Treatment Note PT-OP-A Visit Information Start: 05/26/21 18:19 Freq: Status: Active Protocol: Document 07/27/21 11:21 LRN (Rec: 07/27/21 12:23 LRN [id number]) Out-Patient Physical Therapy Visit Information Visit Information Visit Type Treatment Note Visit Start Time 11:21 Visit Stop Time 12:07 Total Visit Minutes 46 Visit Number 9 Evaluation Information Evaluation Date 06/01/21 Precautions Precautions HBP controlled by meds. PT-OP-B Current Condition Start: 05/26/21 18:19 Freq: Status: Active Protocol: Document 06/01/21 11:26 LRN (Rec: 06/01/21 12:31 LRN [id number]) Current Condition History of Current Condition Onset Date 1 yr ago Current Complaints Prolapse of bladder, inability to hold urine with an urge. History of Current Condition Pt reports bladder prolapse, hanging out and bulging out. A year ago spouse had knee surgery and while lifting she noticed her condition worsened. She was given a PF ex program by urologist and she states she has noticed some improvement with less leakage. She then saw a service aide and was told her problem is the prolapse and she had discussed pessary use and will try a pessary after having PT. States she runs damp most of the time. Has had to stop yoga, but would like to be able to do ex yoga and gardening. Prior Treatments and Tests Vaginal estrogen creme every other day. Dr Rowland did a bladder study and found bladder was functioning normal; therefore was told to do a Kegel exercise program since last fall (up to 50QC and 10 sec hold x 50 QC). Future Testing and Treatments Planned Pessary after PT. Treatment Goals Patient/Caregiver Goals Pt goal is to do a yoga class again. Pt goal is to be put on an appropriate HEP. Pt goal is to learn how to do a Kegel correctly. Pt goal is to teach proper body control and limits with lifting. Decrease pain with sexual intercourse. Prior Functional Status Baseline Function- ADL's Independent Baseline Function- Mobility Independent Baseline Function- Other Had urinary incontinence during aerobics, every time jumped. No pain with intercourse. Participated in yoga class. Current Functional Impairments (Reported) Functional Limitations- ADL's Urinary incontinence with a strong urge. Pressure in PF and LBP, causing her have to lie down. Having to push bladder up 3-4x /day. Functional Limitations- Mobility/Gait Walking 3-4 miles, but felt bladder drop by the time the walk was over. Functional Limitations- Recreation/ Not able to return to yoga Hobbies exercise. Functional Limitations- Other Wears one light pantiliner a day. Urinates 3X after going to bed and 8x during the day. Not able to delay urine for any length of time. Personal Factors Other Personal Factors That May Effect Has spouse who has Therapy/Recovery comorbidities that she feels she has to do heavy lifting activities (ex - gardening activities). PT-OP-C Subjective Start: 05/26/21 18:19 Freq: Status: Active Protocol: Document 07/27/21 11:21 LRN (Rec: 07/27/21 12:23 LRN [id number]) OP-PT Subjective Patient Comments Patient Comments Pt states her bladder feels like it is starting to drop. PT-OP-I Pelvic Floor Start: 05/26/21 18:19 Freq: Status: Active Protocol: Document 07/27/21 11:21 LRN (Rec: 07/27/21 12:23 LRN [id number]) Pelvic Floor Assessment Bowel Bowel Movement Frequency Small amounts daily. Pelvic Clock Pelvic Clock Other No tenderness present. Prolapse Cystocele Grade 2 Prolapse Comments STanding: Contraction Ability Voluntary Contraction Moderate Voluntary Relaxation Moderate Manual Muscle Testing Left 2 Manual Muscle Testing Right 3 Manual Muscle Testing Anterior 3 Manual Muscle Testing Posterior 3 Muscle Endurance (Seconds) 8 Number of Quick Contractions In 10 10 Seconds Comments Pelvic Floor Comments Manual Testing of Left PF is 3 -/5. Perineal descent in standing is worse than supine, but visible present. PT-OP-J Posture/Palpation/Skin Start: 05/26/21 18:19 Freq: Status: Active Protocol: Document 06/01/21 11:26 LRN (Rec: 06/01/21 12:31 LRN [id number]) Posture Evaluation Position Standing L-Spine Posture Decreased Lordosis Shoulder Posture (R) Elevated Ankle/Foot Posture (L) Calcaneal Eversion,(R) Calcaneal Eversion PT-OP-K Range of Motion Start: 05/26/21 18:19 Freq: Status: Active Protocol: Document 06/15/21 11:27 LRN (Rec: 06/15/21 12:23 LRN [id number]) Hip Goniometric Range of Motion Hip Right Passive Testing Position Supine Flexion w/Knee Flexed 130 Straight Leg Raise 90 Abduction 50 Internal Rotation 30 External Rotation 75 Left Passive Testing Position Supine Flexion w/Knee Flexed 130 Straight Leg Raise 90 Abduction 50 Internal Rotation 30 External Rotation 60 PT-OP-M Strength Start: 05/26/21 18:19 Freq: Status: Active Protocol: Document 06/01/21 11:26 LRN (Rec: 06/01/21 12:31 LRN [id number]) Trunk Strength Trunk Manual Muscle Testing Testing Position Supine Rotation Left 5 Normal Rotation Right 5 Normal Hip Strength Hip Manual Muscle Testing Right Comments Generally 5/5 Left Comments Generally 5/5 PT-OP-Q Treatments Start: 05/26/21 18:19 Freq: Status: Active Protocol: Document 07/27/21 11:21 LRN (Rec: 07/27/21 12:23 LRN [id number]) Therapeutic Exercises Supine Exercises Bridge w/PF Supine Exercise Name Bridge w/PF/Ball/Band Reps/Minutes 10x each Quick Flicks & Long Holds. Comments Cuing needed for PF/Breathing coordination w/mvmt Kegel Supine Exercise Name Kegels Quick and Long Holds Comments MMT taken Sit <> Supine Supine Exercise Name Sit<>Supine with coordinated breathing & PF Reps/Minutes x2 Comments v cuing given for coordinated breathing/TA/PF contraction Sit <> stand Supine Exercise Name Sit<>Stand with coordinated breathing & PF Reps/Minutes x2 Comments v cuing given for coordinated breathing/TA/PF contraction Sidelying Exercises L hip AD Sidelying Exercise Name L hip AD/PF long hold & quick flick tightening Side bilateral Reps/Minutes 8' Comments cuing given for TA tightening & coordinated breathing Standing Exercises Squatting Standing Exercise Name 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 Reps/Minutes 3x Yoga hamsting stretch Standing Exercise Name Yoga hamstring stretch position for PF tightening & before sitting Reps/Minutes x1 Comments Much training for awareness of bladder lift with PF contraction/breathing. Self-Care/Home Management Treatment Education Other Education Reviewed coordinated breathing for BM management without pushing on PF. Taught positioning and breathing for ease of BM voiding. Reviewed appropriate yoga movements and discussed movements to avoid (planks) and discussed precaution of holding breath. PT-OP-T Assessment and Plan Start: 05/26/21 18:19 Freq: Status: Active Protocol: Document 07/27/21 11:21 LRN (Rec: 07/27/21 12:23 LRN [id number]) Physical Therapy Assessment Goals Three Impairment PF/low back pain rated 2-5/10 Impairment Pain with intercourse. Short Term Goal (STG) Pt will experience decrease frequency onset of PF/low back pain. (06/29/21: LBP is much better, just a little tight, no pain) STG Duration 08/11/21 (06/29/21: MET GOAL) Retirement Goal (LTG) Decrease pain rating with sexual intercourse. LTG Duration 08/30/21 Two Impairment Prolapse limiting pt's ability to ex and do activities at home (gardening) Short Term Goal (STG) Pt will be educated in proper body mechanics and improve awareness of weight limits with lifting. (06/22/21: Pt educated in log roll transfer from plinth with proper breathing) (07/07/21: Pt educated in proper colvin mechanics and breathing technique with lifting, bending, and exercise . STG Duration 06/16/21 (06/09/21: MET GOAL) Cone Tender Goal (LTG) Pt will be able to do a yoga class without prolapse worsening. (07/14/21: Pt educated in PF strengthening ex's during yoga moves of hamstring stretch and arms overhead positioning) . LTG Duration 08/30/21 (07/14/21: Progressing) One Impairment Lacks HEP of isolated PF ex's and ex's targeting weak areas in the PF Short Term Goal (STG) Pt will be able to do a Kegel in isolation of substitute muscles and with good coordination of contraction with lift of PF. (06/22/21: Can do isolated Kegel from gluts and hip AD's, but not TA). (06/28/21: Mild use of TA with Kegel, but no use of gluts & hip AD's) STG Duration 06/30/21 (06/29/21: MET GOAL) Cone Tender Goal (LTG) Pt will be put on a HEP of PF ex's in isolation of substitute muscles with focus on strengthening of weak areas (3-6 O'Clock) of PF clock. (07/17/21: Added standing plie with TA added) (07/17/21: Added L BKFO/PF and L hip AD/PF in L sidelie and standing). LTG Duration 08/30/21 (07/17/21: Progressed) Assessment Summary Assessment Pt prolapse in standing is grade 3 with bladder bulging mildly past hymen plane. Cystocele in supine is 3 with bladder mildly above hymen. Her PF strength with Quick Flicks and Long holds is 3/5, but weakly in L lateral wall rated 3-/5, not holding densitometrist with long holds and weakens over time with quick flicks. Pt tends to hold her breath and needs cuing to breath during transfers and functional movements (picking up objects, bending). Pt needs to concentrate on lateral wall strengthening and not breath holding. Pt is having increased BM's/day. Physical Therapy Plan Frequency and Duration Frequency of Treatment 1x/Week Plan of Care Start Date 06/01/21 Plan of Care End Date 08/30/21 Next Visit Focus/Plan Next Note Type Progress Note Next Visit Plan Recheck (PN) on return from vacation (08/17/21) before returning to referring physician 08/18/21. Possible DC. Recheck PF (prolapse and lateral wall strength-Quick & Long Holds). Address questions or concerns regarding HEP or yoga moves.
--- NOTE | 2021-08-17 13:04 | PT.OPPN ---
Current Diagnoses Constipation, unspecified (08/17/21) Muscle weakness (generalized) (08/17/21) Other specified disorders of muscle (08/17/21) Urge incontinence (08/17/21) Lower abdominal pain, unspecified (08/17/21) Physical Therapy Progress Note PT-OP-A Visit Information Start: 05/26/21 18:19 Freq: Status: Active Protocol: Document 08/17/21 11:06 LRN (Rec: 08/17/21 12:09 LRN [id number]) Out-Patient Physical Therapy Visit Information Visit Information Visit Type Progress Note Visit Start Time 11:06 Visit Stop Time 11:58 Total Visit Minutes 52 Visit Number 10 Evaluation Information Evaluation Date 06/01/21 Precautions Precautions HBP controlled by meds. PT-OP-B Current Condition Start: 05/26/21 18:19 Freq: Status: Active Protocol: Document 06/01/21 11:26 LRN (Rec: 06/01/21 12:31 LRN [id number]) Current Condition History of Current Condition Onset Date 1 yr ago Current Complaints Prolapse of bladder, inability to hold urine with an urge. History of Current Condition Pt reports bladder prolapse, hanging out and bulging out. A year ago spouse had knee surgery and while lifting she noticed her condition worsened. She was given a PF ex program by urologist and she states she has noticed some improvement with less leakage. She then saw a boilermaking supervisor and was told her problem is the prolapse and she had discussed pessary use and will try a pessary after having PT. States she runs damp most of the time. Has had to stop yoga, but would like to be able to do ex yoga and gardening. Prior Treatments and Tests Vaginal estrogen creme every other day. Dr Rowland did a bladder study and found bladder was functioning normal; therefore was told to do a Kegel exercise program since last fall (up to 50QC and 10 sec hold x 50 QC). Future Testing and Treatments Planned Pessary after PT. Treatment Goals Patient/Caregiver Goals Pt goal is to do a yoga class again. Pt goal is to be put on an appropriate HEP. Pt goal is to learn how to do a Kegel correctly. Pt goal is to teach proper body control and limits with lifting. Decrease pain with sexual intercourse. Prior Functional Status Baseline Function- ADL's Independent Baseline Function- Mobility Independent Baseline Function- Other Had urinary incontinence during aerobics, every time jumped. No pain with intercourse. Participated in yoga class. Current Functional Impairments (Reported) Functional Limitations- ADL's Urinary incontinence with a strong urge. Pressure in PF and LBP, causing her have to lie down. Having to push bladder up 3-4x /day. Functional Limitations- Mobility/Gait Walking 3-4 miles, but felt bladder drop by the time the walk was over. Functional Limitations- Recreation/ Not able to return to yoga Hobbies exercise. Functional Limitations- Other Wears one light pantiliner a day. Urinates 3X after going to bed and 8x during the day. Not able to delay urine for any length of time. Personal Factors Other Personal Factors That May Effect Has spouse who has Therapy/Recovery comorbidities that she feels she has to do heavy lifting activities (ex - gardening activities). PT-OP-C Subjective Start: 05/26/21 18:19 Freq: Status: Active Protocol: Document 08/17/21 11:06 LRN (Rec: 08/17/21 12:09 LRN [id number]) OP-PT Subjective Patient Comments Patient Comments Went on trip and had no accidents. Did garden work and could feel the bladder dropping out and can feel the bldder lift if she bends over and contracts her PF. Did not get constipated with her travels. Discussed bowel types and how to achieve bowel types. PT-OP-I Pelvic Floor Start: 05/26/21 18:19 Freq: Status: Active Protocol: Document 08/17/21 11:06 LRN (Rec: 08/17/21 12:09 LRN [id number]) Pelvic Floor Assessment Urine Urinary Symptoms Prolapse,Dribbling After Urination,Falling Out Feeling/ Heavy Other Urinary Symptoms Hasn't had an accident the last 2-4 weeks. Leakage Size Small Leakage Cause Exercise Other Leakage Causes Bending over Leaks Per Day 3 drips/day Voiding Frequency Every 2 hours Nocturia 1-2/night Pads Used In 24 Hours No pad wearing Bowel Bowel Movement Frequency Wtih Miralax, 2-3x/day, without laxative 1x/day. [place] Stool Chart Type 1-7 2 [place] Stool Chart Comments Type 4 and 7 with Miralax. Contraction Ability Voluntary Contraction Moderate Voluntary Relaxation Moderate Manual Muscle Testing Left 3 Manual Muscle Testing Right 3 Manual Muscle Testing Anterior 3 Manual Muscle Testing Posterior 3 Comments Pelvic Floor Comments Tender at 4-5 O'Clock. PT-OP-J Posture/Palpation/Skin Start: 05/26/21 18:19 Freq: Status: Active Protocol: Document 06/01/21 11:26 LRN (Rec: 06/01/21 12:31 LRN [id number]) Posture Evaluation Position Standing L-Spine Posture Decreased Lordosis Shoulder Posture (R) Elevated Ankle/Foot Posture (L) Calcaneal Eversion,(R) Calcaneal Eversion PT-OP-K Range of Motion Start: 05/26/21 18:19 Freq: Status: Active Protocol: Document 06/15/21 11:27 LRN (Rec: 06/15/21 12:23 LRN [id number]) Hip Goniometric Range of Motion Hip Measured in Degrees Right Passive Testing Position Supine Flexion w/Knee Flexed 130 Straight Leg Raise 90 Abduction 50 Internal Rotation 30 External Rotation 75 Left Passive Testing Position Supine Flexion w/Knee Flexed 130 Straight Leg Raise 90 Abduction 50 Internal Rotation 30 External Rotation 60 PT-OP-M Strength Start: 05/26/21 18:19 Freq: Status: Active Protocol: Document 06/01/21 11:26 LRN (Rec: 06/01/21 12:31 LRN [id number]) Trunk Strength Trunk Manual Muscle Testing Testing Position Supine Rotation Left 5 Normal Rotation Right 5 Normal Hip Strength Hip Manual Muscle Testing Right Comments Generally 5/5 Left Comments Generally 5/5 PT-OP-T Assessment and Plan Start: 05/26/21 18:19 Freq: Status: Active Protocol: Document 08/17/21 11:06 LRN (Rec: 08/17/21 12:09 LRN [id number]) Physical Therapy Assessment Goals Three Impairment PF/low back pain rated 2-5/10 Impairment Pain with intercourse. Short Term Goal (STG) Pt will experience decrease frequency onset of PF/low back pain. (06/29/21: LBP is much better, just a little tight, no pain) STG Duration 08/11/21 (06/29/21: MET GOAL) Group Home Goal (LTG) Decrease pain rating with sexual intercourse. LTG Duration 08/30/21 (08/17/21: NOT MET, pt spouse unable to attempted) Two Impairment Prolapse limiting pt's ability to ex and do activities at home (gardening) Short Term Goal (STG) Pt will be educated in proper body mechanics and improve awareness of weight limits with lifting. (06/22/21: Pt educated in log roll transfer from plint with proper breathing) (07/07/21: Pt educated in proper colvin mechanics and breathing technique with lifting, bending, and exercise . STG Duration 06/16/21 (06/09/21: MET GOAL) Meat Cooler Goal (LTG) Pt will be able to do a yoga class without prolapse worsening. (07/14/21: Pt educated in PF strengthening ex's during yoga moves of hamstring stretch and arms overhead positioning) . LTG Duration 08/30/21 (08/17/21: MET GOAL) One Impairment Lacks HEP of isolated PF ex's and ex's targeting weak areas in the PF Short Term Goal (STG) Pt will be able to do a Kegel in isolation of substitute muscles and with good coordination of contraction with lift of PF. (06/22/21: Can do isolated Kegel from gluts and hip AD's, but not TA). (06/28/21: Mild use of TA with Kegel, but no use of gluts & hip AD's) STG Duration 06/30/21 (06/29/21: MET GOAL) Group Home Goal (LTG) Pt will be put on a HEP of PF ex's in isolation of substitute muscles with focus on strengthening of weak areas (3-6 O'Clock) of PF clock. (07/17/21: Added standing plie with TA added) (07/17/21: Added L BKFO/PF and L hip AD/PF in L sidelie and standing). LTG Duration 08/30/21 (07/17/21: Progressed) Progress Towards Goals Progress Comments Self care progressed with PF stretching with small dilator. Lessening of pressure in lower abdomen, but present in anterior hips after PF stretching. 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 Her strength is 4/5, and lacks inward pull. She has a palpable squeeze pressure and lift from the anterior, posterior and sidewalls. She has tenderness of the PF Clock at the 5-6 O'Clock position. With stretching of the PF she has referred heavy pressure to the lower abdomen, which she feels when she thinks her bladder has dropped out of her vaginal canal. She has good strength around the PF clock now, but the tightness on the L side may be the reason for her feeling of pressure in the lower abdomen rather than the bladder descent. Further stretching of the PF may be beneficial for the pt to further reduce her urinary leakage and may make use of a pessary more comfortable. I would recommend continuation of therapy for 2-4 more weeks for PF stretching if she is able to gain some relief of her abdominal pressure, better support of her bladder, and to improve her level of continence after today's PF stretching session. She would also benefit from stretching to make comfortable her nighttime activities and for greater continence with her return to yoga. Physical Therapy Plan Frequency and Duration Frequency of Treatment 1x/Week Plan of Care Start Date 08/17/21 Plan of Care End Date 10/03/21 Therapeutic Interventions Therapeutic Interventions Home Exercise Program,Manual Therapy,Patient/Caregiver Education,Self-Care/Home Management,Soft Tissue Mobilization,Therapeutic Exercises Modalities Cold Pack/Ice Massage,Hot Packs Next Visit Focus/Plan Next Note Type Treatment Note Next Visit Plan Pt to call to discuss POC based on response of today's treatment with PF stretching ( pt to continue if positive response, or DC to home program if no improvement). Review of PF stretching with small dilator. PF stretching (mainly PF Clock 4-5). Return to Yoga exercises with proper breathwork and modification of abdominal ex to minimize bladder prolapse.
--- NOTE | 2021-08-17 13:04 | PT.OPPOC ---
Physical, Occupational & Speech Therapy At [facility] Current Diagnoses Constipation, unspecified (08/17/21) Muscle weakness (generalized) (08/17/21) Other specified disorders of muscle (08/17/21) Urge incontinence (08/17/21) Lower abdominal pain, unspecified (08/17/21) Visit Care Team Role Provider Type Jeny Jensen MD Family Provider Non-Staff Primary Care Provider Specialty: Internal Medicine Address: [address] [place] [address], [id number] Email: Mima Suero MD Attending Provider Physician Referring Provider Specialty: TRANSMISSION ASSEMBLER Address: [address] [place] [address], [id number] Email: Plan Of Care PT-OP-T Assessment and Plan Start: 05/26/21 18:19 Freq: Status: Active Protocol: Document 08/17/21 11:06 LRN (Rec: 08/17/21 12:09 LRN [id number]) Physical Therapy Assessment Goals Three Impairment PF/low back pain rated 2-5/10 Impairment Pain with intercourse. Short Term Goal (STG) Pt will experience decrease frequency onset of PF/low back pain. (06/29/21: LBP is much better, just a little tight, no pain) STG Duration 08/11/21 (06/29/21: MET GOAL) Check Processing Clerk Goal (LTG) Decrease pain rating with sexual intercourse. LTG Duration 08/30/21 (08/17/21: NOT MET, pt spouse unable to attempted) Two Impairment Prolapse limiting pt's ability to ex and do activities at home (gardening) Short Term Goal (STG) Pt will be educated in proper body mechanics and improve awareness of weight limits with lifting. (06/22/21: Pt educated in log roll transfer from plinth with proper breathing) (07/07/21: Pt educated in proper colvin mechanics and breathing technique with lifting, bending, and exercise . STG Duration 06/16/21 (06/09/21: MET GOAL) Fdc Goal (LTG) Pt will be able to do a yoga class without prolapse worsening. (07/14/21: Pt educated in PF strengthening ex's during yoga moves of hamstring stretch and arms overhead positioning) . LTG Duration 08/30/21 (08/17/21: MET GOAL) One Impairment Lacks HEP of isolated PF ex's and ex's targeting weak areas in the PF Short Term Goal (STG) Pt will be able to do a Kegel in isolation of substitute muscles and with good coordination of contraction with lift of PF. (06/22/21: Can do isolated Kegel from gluts and hip AD's, but not TA). (06/28/21: Mild use of TA with Kegel, but no use of gluts & hip AD's) STG Duration 06/30/21 (06/29/21: MET GOAL) Fdc Goal (LTG) Pt will be put on a HEP of PF ex's in isolation of substitute muscles with focus on strengthening of weak areas (3-6 O'Clock) of PF clock. (07/17/21: Added standing plie with TA added) (07/17/21: Added L BKFO/PF and L hip AD/PF in L sidelie and standing). LTG Duration 08/30/21 (07/17/21: Progressed) Progress Towards Goals Progress Comments Self care progressed with PF stretching with small dilator. Lessening of pressure in lower abdomen, but present in anterior hips after PF stretching. 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 Her strength is 4/5, and lacks inward pull. She has a palpable squeeze pressure and lift from the anterior, posterior and sidewalls. She has tenderness of the PF Clock at the 5-6 O'Clock position. With stretching of the PF she has referred heavy pressure to the lower abdomen, which she feels when she thinks her bladder has dropped out of her vaginal canal. She has good strength around the PF clock now, but the tightness on the L side may be the reason for her feeling of pressure in the lower abdomen rather than the bladder descent. Further stretching of the PF may be beneficial for the pt to further reduce her urinary leakage and may make use of a pessary more comfortable. I would recommend continuation of therapy for 2-4 more weeks for PF stretching if she is able to gain some relief of her abdominal pressure, better support of her bladder, and to improve her level of continence after today's PF stretching session. She would also benefit from stretching to make comfortable her nighttime activities and for greater continence with her return to yoga. Physical Therapy Plan Frequency and Duration Frequency of Treatment 1x/Week Plan of Care Start Date 08/17/21 Plan of Care End Date 10/03/21 Therapeutic Interventions Therapeutic Interventions Home Exercise Program,Manual Therapy,Patient/Caregiver Education,Self-Care/Home Management,Soft Tissue Mobilization,Therapeutic Exercises Modalities Cold Pack/Ice Massage,Hot Packs Next Visit Focus/Plan Next Note Type Treatment Note Next Visit Plan Pt to call to discuss POC based on response of today's treatment with PF stretching ( pt to continue if positive response, or DC to home program if no improvement). Review of PF stretching with small dilator. PF stretching (mainly PF Clock 4-5). Return to Yoga exercises with proper breathwork and modification of abdominal ex to minimize bladder prolapse. Plan of Care Dates Plan of Care Start Date 08/17/21 Plan of Care End Date 10/03/21 Electronically Signed by: Tangela Polo, PT 08/17/21 [id number] If you are in agreement with this Plan of Care, please return a signed and dated copy. I have reviewed this Plan of Care and certify that the skilled therapy services above are required to meet the patient?s needs. Physician Signature Date Printed Name and Credentials Clinical Instructor Signature Printed Name and Credentials
--- NOTE | 2021-08-17 13:11 | PT.OTN ---
Current Diagnoses Constipation, unspecified (08/17/21) Muscle weakness (generalized) (08/17/21) Other specified disorders of muscle (08/17/21) Urge incontinence (08/17/21) Lower abdominal pain, unspecified (08/17/21) Physical Therapy Treatment Note PT-OP-A Visit Information Start: 05/26/21 18:19 Freq: Status: Active Protocol: Document 08/17/21 11:06 LRN (Rec: 08/17/21 12:09 LRN [id number]) Out-Patient Physical Therapy Visit Information Visit Information Visit Type Progress Note Visit Start Time 11:06 Visit Stop Time 11:58 Total Visit Minutes 52 Visit Number 10 Evaluation Information Evaluation Date 06/01/21 Precautions Precautions HBP controlled by meds. PT-OP-B Current Condition Start: 05/26/21 18:19 Freq: Status: Active Protocol: Document 06/01/21 11:26 LRN (Rec: 06/01/21 12:31 LRN [id number]) Current Condition History of Current Condition Onset Date 1 yr ago Current Complaints Prolapse of bladder, inability to hold urine with an urge. History of Current Condition Pt reports bladder prolapse, hanging out and bulging out. A year ago spouse had knee surgery and while lifting she noticed her condition worsened. She was given a PF ex program by urologist and she states she has noticed some improvement with less leakage. She then saw a rehab nursing tech and was told her problem is the prolapse and she had discussed pessary use and will try a pessary after having PT. States she runs damp most of the time. Has had to stop yoga, but would like to be able to do ex yoga and gardening. Prior Treatments and Tests Vaginal estrogen creme every other day. Dr Rowland did a bladder study and found bladder was functioning normal; therefore was told to do a Kegel exercise program since last fall (up to 50QC and 10 sec hold x 50 QC). Future Testing and Treatments Planned Pessary after PT. Treatment Goals Patient/Caregiver Goals Pt goal is to do a yoga class again. Pt goal is to be put on an appropriate HEP. Pt goal is to learn how to do a Kegel correctly. Pt goal is to teach proper body control and limits with lifting. Decrease pain with sexual intercourse. Prior Functional Status Baseline Function- ADL's Independent Baseline Function- Mobility Independent Baseline Function- Other Had urinary incontinence during aerobics, every time jumped. No pain with intercourse. Participated in yoga class. Current Functional Impairments (Reported) Functional Limitations- ADL's Urinary incontinence with a strong urge. Pressure in PF and LBP, causing her have to lie down. Having to push bladder up 3-4x /day. Functional Limitations- Mobility/Gait Walking 3-4 miles, but felt bladder drop by the time the walk was over. Functional Limitations- Recreation/ Not able to return to yoga Hobbies exercise. Functional Limitations- Other Wears one light pantiliner a day. Urinates 3X after going to bed and 8x during the day. Not able to delay urine for any length of time. Personal Factors Other Personal Factors That May Effect Has spouse who has Therapy/Recovery comorbidities that she feels she has to do heavy lifting activities (ex - gardening activities). PT-OP-C Subjective Start: 05/26/21 18:19 Freq: Status: Active Protocol: Document 08/17/21 11:06 LRN (Rec: 08/17/21 12:09 LRN [id number]) OP-PT Subjective Patient Comments Patient Comments Went on trip and had no accidents. Did garden work and could feel the bladder dropping out and can feel the bldder lift if she bends over and contracts her PF. Did not get constipated with her travels. Discussed bowel types and how to achieve bowel types. PT-OP-I Pelvic Floor Start: 05/26/21 18:19 Freq: Status: Active Protocol: Document 08/17/21 11:06 LRN (Rec: 08/17/21 12:09 LRN [id number]) Pelvic Floor Assessment Urine Urinary Symptoms Prolapse,Dribbling After Urination,Falling Out Feeling/ Heavy Other Urinary Symptoms Hasn't had an accident the last 2-4 weeks. Leakage Size Small Leakage Cause Exercise Other Leakage Causes Bending over Leaks Per Day 3 drips/day Voiding Frequency Every 2 hours Nocturia 1-2/night Pads Used In 24 Hours No pad wearing Bowel Bowel Movement Frequency Wtih Miralax, 2-3x/day, without laxative 1x/day. Union Stool Chart Type 1-7 2 Union Stool Chart Comments Type 4 and 7 with Miralax. Contraction Ability Voluntary Contraction Moderate Voluntary Relaxation Moderate Manual Muscle Testing Left 3 Manual Muscle Testing Right 3 Manual Muscle Testing Anterior 3 Manual Muscle Testing Posterior 3 Comments Pelvic Floor Comments Tender at 4-5 O'Clock. PT-OP-J Posture/Palpation/Skin Start: 05/26/21 18:19 Freq: Status: Active Protocol: Document 06/01/21 11:26 LRN (Rec: 06/01/21 12:31 LRN [id number]) Posture Evaluation Position Standing L-Spine Posture Decreased Lordosis Shoulder Posture (R) Elevated Ankle/Foot Posture (L) Calcaneal Eversion,(R) Calcaneal Eversion PT-OP-K Range of Motion Start: 05/26/21 18:19 Freq: Status: Active Protocol: Document 06/15/21 11:27 LRN (Rec: 06/15/21 12:23 LRN [id number]) Hip Goniometric Range of Motion Hip Right Passive Testing Position Supine Flexion w/Knee Flexed 130 Straight Leg Raise 90 Abduction 50 Internal Rotation 30 External Rotation 75 Left Passive Testing Position Supine Flexion w/Knee Flexed 130 Straight Leg Raise 90 Abduction 50 Internal Rotation 30 External Rotation 60 PT-OP-M Strength Start: 05/26/21 18:19 Freq: Status: Active Protocol: Document 06/01/21 11:26 LRN (Rec: 06/01/21 12:31 LRN [id number]) Trunk Strength Trunk Manual Muscle Testing Testing Position Supine Rotation Left 5 Normal Rotation Right 5 Normal Hip Strength Hip Manual Muscle Testing Right Comments Generally 5/5 Left Comments Generally 5/5 PT-OP-Q Treatments Start: 05/26/21 18:19 Freq: Status: Active Protocol: Document 08/17/21 11:06 LRN (Rec: 08/17/21 12:09 LRN [id number]) Therapeutic Exercises Supine Exercises Happy Baby Pose Supine Exercise Name Happy Baby Pose for tight PF - reviewed Reps/Minutes 2' Kegel Supine Exercise Name Kegels Quick and Long Holds Reps/Minutes 11' Comments Soft tissue assessed & MMT taken Manual Therapy Treatment Soft Tissue Mobilization PF Body Location PF Clock: 4-8 Mobilization Type Myofascial Release Intensity/Depth Moderate Body Position Hooklying Comments Increase strength of contraction at 6 O'Clock after stretching Self-Care/Home Management Treatment Education Patient Education Home Exercise Program Other Education Discussed precautions of bladder prolpase reoccuring even if she has a bldder lift rather than a pessary and verbal review of core pressure management. Reviewed previous education/ Discussed: Exercise without prolapse worsening. Activities Self-Care/Home Management Activities Issued & educated pt in use of small dilator for PF stretching at 4-5 O'Clock of PF. PT-OP-T Assessment and Plan Start: 05/26/21 18:19 Freq: Status: Active Protocol: Document 08/17/21 11:06 LRN (Rec: 08/17/21 12:09 LRN [id number]) Physical Therapy Assessment Goals Three Impairment PF/low back pain rated 2-5/10 Impairment Pain with intercourse. Short Term Goal (STG) Pt will experience decrease frequency onset of PF/low back pain. (06/29/21: LBP is much better, just a little tight, no pain) STG Duration 08/11/21 (06/29/21: MET GOAL) Detention Goal (LTG) Decrease pain rating with sexual intercourse. LTG Duration 08/30/21 (08/17/21: NOT MET, pt spouse unable to attempted) Two Impairment Prolapse limiting pt's ability to ex and do activities at home (gardening) Short Term Goal (STG) Pt will be educated in proper body mechanics and improve awareness of weight limits with lifting. (06/22/21: Pt educated in log roll transfer from plinth with proper breathing) (07/07/21: Pt educated in proper colvin mechanics and breathing technique with lifting, bending, and exercise . STG Duration 06/16/21 (06/09/21: MET GOAL) Prototype Model Maker Goal (LTG) Pt will be able to do a yoga class without prolapse worsening. (07/14/21: Pt educated in PF strengthening ex's during yoga moves of hamstring stretch and arms overhead positioning) . LTG Duration 08/30/21 (08/17/21: MET GOAL) One Impairment Lacks HEP of isolated PF ex's and ex's targeting weak areas in the PF Short Term Goal (STG) Pt will be able to do a Kegel in isolation of substitute muscles and with good coordination of contraction with lift of PF. (06/22/21: Can do isolated Kegel from gluts and hip AD's, but not TA). (06/28/21: Mild use of TA with Kegel, but no use of gluts & hip AD's) STG Duration 06/30/21 (06/29/21: MET GOAL) Detention Goal (LTG) Pt will be put on a HEP of PF ex's in isolation of substitute muscles with focus on strengthening of weak areas (3-6 O'Clock) of PF clock. (07/17/21: Added standing plie with TA added) (07/17/21: Added L BKFO/PF and L hip AD/PF in L sidelie and standing). LTG Duration 08/30/21 (07/17/21: Progressed) Progress Towards Goals Progress Comments Self care progressed with PF stretching with small dilator. Lessening of pressure in lower abdomen, but present in anterior hips after PF stretching. 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 Her strength is 4/5, and lacks inward pull. She has a palpable squeeze pressure and lift from the anterior, posterior and sidewalls. She has tenderness of the PF Clock at the 5-6 O'Clock position. With stretching of the PF she has referred heavy pressure to the lower abdomen, which she feels when she thinks her bladder has dropped out of her vaginal canal. She has good strength around the PF clock now, but the tightness on the L side may be the reason for her feeling of pressure in the lower abdomen rather than the bladder descent. Further stretching of the PF may be beneficial for the pt to further reduce her urinary leakage and may make use of a pessary more comfortable. I would recommend continuation of therapy for 2-4 more weeks for PF stretching if she is able to gain some relief of her abdominal pressure, better support of her bladder, and to improve her level of continence after today's PF stretching session. She would also benefit from stretching to make comfortable her nighttime activities and for greater continence with her return to yoga. Physical Therapy Plan Frequency and Duration Frequency of Treatment 1x/Week Plan of Care Start Date 08/17/21 Plan of Care End Date 10/03/21 Therapeutic Interventions Therapeutic Interventions Home Exercise Program,Manual Therapy,Patient/Caregiver Education,Self-Care/Home Management,Soft Tissue Mobilization,Therapeutic Exercises Modalities Cold Pack/Ice Massage,Hot Packs Next Visit Focus/Plan Next Note Type Treatment Note Next Visit Plan Pt to call to discuss POC based on response of today's treatment with PF stretching ( pt to continue if positive response, or DC to home program if no improvement). Review of PF stretching with small dilator. PF stretching (mainly PF Clock 4-5). Return to Yoga exercises with proper breathwork and modification of abdominal ex to minimize bladder prolapse.
--- NOTE | 2021-08-21 12:21 | PT.OTN ---
Current Diagnoses Constipation, unspecified (08/21/21) Muscle weakness (generalized) (08/21/21) Other specified disorders of muscle (08/21/21) Urge incontinence (08/21/21) Lower abdominal pain, unspecified (08/21/21) Physical Therapy Treatment Note PT-OP-A Visit Information Start: 05/26/21 18:19 Freq: Status: Active Protocol: Document 08/21/21 11:20 LRN (Rec: 08/21/21 12:20 LRN [id number]) Out-Patient Physical Therapy Visit Information Visit Information Visit Type Treatment Note Visit Start Time 11:20 Visit Stop Time 12:00 Total Visit Minutes 40 Visit Number 11 Evaluation Information Evaluation Date 06/01/21 Precautions Precautions HBP controlled by meds. PT-OP-B Current Condition Start: 05/26/21 18:19 Freq: Status: Active Protocol: Document 06/01/21 11:26 LRN (Rec: 06/01/21 12:31 LRN [id number]) Current Condition History of Current Condition Onset Date 1 yr ago Current Complaints Prolapse of bladder, inability to hold urine with an urge. History of Current Condition Pt reports bladder prolapse, hanging out and bulging out. A year ago spouse had knee surgery and while lifting she noticed her condition worsened. She was given a PF ex program by urologist and she states she has noticed some improvement with less leakage. She then saw a racing car driver and was told her problem is the prolapse and she had discussed pessary use and will try a pessary after having PT. States she runs damp most of the time. Has had to stop yoga, but would like to be able to do ex yoga and gardening. Prior Treatments and Tests Vaginal estrogen creme every other day. Dr Rowland did a bladder study and found bladder was functioning normal; therefore was told to do a Kegel exercise program since last fall (up to 50QC and 10 sec hold x 50 QC). Future Testing and Treatments Planned Pessary after PT. Treatment Goals Patient/Caregiver Goals Pt goal is to do a yoga class again. Pt goal is to be put on an appropriate HEP. Pt goal is to learn how to do a Kegel correctly. Pt goal is to teach proper body control and limits with lifting. Decrease pain with sexual intercourse. Prior Functional Status Baseline Function- ADL's Independent Baseline Function- Mobility Independent Baseline Function- Other Had urinary incontinence during aerobics, every time jumped. No pain with intercourse. Participated in yoga class. Current Functional Impairments (Reported) Functional Limitations- ADL's Urinary incontinence with a strong urge. Pressure in PF and LBP, causing her have to lie down. Having to push bladder up 3-4x /day. Functional Limitations- Mobility/Gait Walking 3-4 miles, but felt bladder drop by the time the walk was over. Functional Limitations- Recreation/ Not able to return to yoga Hobbies exercise. Functional Limitations- Other Wears one light pantiliner a day. Urinates 3X after going to bed and 8x during the day. Not able to delay urine for any length of time. Personal Factors Other Personal Factors That May Effect Has spouse who has Therapy/Recovery comorbidities that she feels she has to do heavy lifting activities (ex - gardening activities). PT-OP-C Subjective Start: 05/26/21 18:19 Freq: Status: Active Protocol: Document 08/21/21 11:20 LRN (Rec: 08/21/21 12:20 LRN [id number]) OP-PT Subjective Patient Comments Patient Comments States urologist said he she should continue with therapy. States pessary would be a good idea. He will recheck her in 3 months. She is to get her pessary by Dr. Suero . States she did not have more leakage with PF stretching last session. Has not had a chance to stretch with the dilator. PT-OP-I Pelvic Floor Start: 05/26/21 18:19 Freq: Status: Active Protocol: Document 08/17/21 11:06 LRN (Rec: 08/17/21 12:09 LRN [id number]) Pelvic Floor Assessment Urine Urinary Symptoms Prolapse,Dribbling After Urination,Falling Out Feeling/ Heavy Other Urinary Symptoms Hasn't had an accident the last 2-4 weeks. Leakage Size Small Leakage Cause Exercise Other Leakage Causes Bending over Leaks Per Day 3 drips/day Voiding Frequency Every 2 hours Nocturia 1-2/night Pads Used In 24 Hours No pad wearing Bowel Bowel Movement Frequency Wtih Miralax, 2-3x/day, without laxative 1x/day. Trimble Stool Chart Type 1-7 2 Trimble Stool Chart Comments Type 4 and 7 with Miralax. Contraction Ability Voluntary Contraction Moderate Voluntary Relaxation Moderate Manual Muscle Testing Left 3 Manual Muscle Testing Right 3 Manual Muscle Testing Anterior 3 Manual Muscle Testing Posterior 3 Comments Pelvic Floor Comments Tender at 4-5 O'Clock. PT-OP-J Posture/Palpation/Skin Start: 05/26/21 18:19 Freq: Status: Active Protocol: Document 06/01/21 11:26 LRN (Rec: 06/01/21 12:31 LRN [id number]) Posture Evaluation Position Standing L-Spine Posture Decreased Lordosis Shoulder Posture (R) Elevated Ankle/Foot Posture (L) Calcaneal Eversion,(R) Calcaneal Eversion PT-OP-K Range of Motion Start: 05/26/21 18:19 Freq: Status: Active Protocol: Document 06/15/21 11:27 LRN (Rec: 06/15/21 12:23 LRN [id number]) Hip Goniometric Range of Motion Hip Right Passive Testing Position Supine Flexion w/Knee Flexed 130 Straight Leg Raise 90 Abduction 50 Internal Rotation 30 External Rotation 75 Left Passive Testing Position Supine Flexion w/Knee Flexed 130 Straight Leg Raise 90 Abduction 50 Internal Rotation 30 External Rotation 60 PT-OP-M Strength Start: 05/26/21 18:19 Freq: Status: Active Protocol: Document 06/01/21 11:26 LRN (Rec: 06/01/21 12:31 LRN [id number]) Trunk Strength Trunk Manual Muscle Testing Testing Position Supine Rotation Left 5 Normal Rotation Right 5 Normal Hip Strength Hip Manual Muscle Testing Right Comments Generally 5/5 Left Comments Generally 5/5 PT-OP-Q Treatments Start: 05/26/21 18:19 Freq: Status: Active Protocol: Document 08/21/21 11:20 LRN (Rec: 08/21/21 12:20 LRN [id number]) Manual Therapy Treatment Soft Tissue Mobilization Balancing of Pelvis Body Location Balancing of Pelvis Mobilization Type Myofascial Release,Sustained Pressure Body Position Prone Comments Inferior glide L sacrum R shear of sacrum. Ischium/Ilium rebalancing PF Body Location PF Clock: 4-10 Mobilization Type Myofascial Release Intensity/Depth Moderate Body Position Hooklying Comments Increase strength of contraction of PF Clock after stretching. Superficial sphincter contraction felt 4-6 P'Clock. Self-Care/Home Management Treatment Education Other Education Encouraged pt to use proper breathing techniques with her summer activities to avoid increased internal core pressure on her bladder. Activities Self-Care/Home Management Activities Discussed POC, improvements and continuation of therapy. Discussion of home ex's. Pt had no questions or concerns of her home program. Brief recomendations for summer activties and proper back care. PT-OP-T Assessment and Plan Start: 05/26/21 18:19 Freq: Status: Active Protocol: Document 08/21/21 11:20 LRN (Rec: 08/21/21 12:20 LRN [id number]) Physical Therapy Assessment Goals Three Impairment PF/low back pain rated 2-5/10 Impairment Pain with intercourse. Short Term Goal (STG) Pt will experience decrease frequency onset of PF/low back pain. (06/29/21: LBP is much better, just a little tight, no pain) STG Duration 08/11/21 (06/29/21: MET GOAL) Sheet Rock Sander Goal (LTG) Decrease pain rating with sexual intercourse. LTG Duration 08/30/21 (08/17/21: NOT MET, pt spouse unable to attempted) Two Impairment Prolapse limiting pt's ability to ex and do activities at home (gardening) Short Term Goal (STG) Pt will be educated in proper body mechanics and improve awareness of weight limits with lifting. (06/22/21: Pt educated in log roll transfer from plinth with proper breathing) (07/07/21: Pt educated in proper colvin mechanics and breathing technique with lifting, bending, and exercise . STG Duration 06/16/21 (06/09/21: MET GOAL) Sheet [place] Sander Goal (LTG) Pt will be able to do a yoga class without prolapse worsening. (07/14/21: Pt educated in PF strengthening ex's during yoga moves of hamstring stretch and arms overhead positioning) . LTG Duration 08/30/21 (08/17/21: MET GOAL) One Impairment Lacks HEP of isolated PF ex's and ex's targeting weak areas in the PF Short Term Goal (STG) Pt will be able to do a Kegel in isolation of substitute muscles and with good coordination of contraction with lift of PF. (06/22/21: Can do isolated Kegel from gluts and hip AD's, but not TA). (06/28/21: Mild use of TA with Kegel, but no use of gluts & hip AD's) STG Duration 06/30/21 (06/29/21: MET GOAL) Residential Goal (LTG) Pt will be put on a HEP of PF ex's in isolation of substitute muscles with focus on strengthening of weak areas (3-6 O'Clock) of PF clock. (07/17/21: Added standing plie with TA added) (07/17/21: Added L BKFO/PF and L hip AD/PF in L sidelie and standing). LTG Duration 08/30/21 (08/21/21: MET GOAL) Assessment Summary Assessment Pt presents with no complaints of increased urinary leakage. No dropping of her bladder yet today. I was able to perform balancing of her pelvis from posterior aspect, with pt reporting feeling the mobilizations anteriorly. After PF stretching pt was able to perform a very strong PF contraction of grade 5/5. Pt did not bring in her dilator but states she hasn't used it yet. Pt is confident in her ability to continue with PF strengthening through the summer and understands if her PF weakens she can return to PT with new referral. Physical Therapy Plan Discharge Physical Therapy Discharge Comments Most goals met. Pt chose not to work towards achieving LTG #3 due to spouse health changes.
== END 2021-08-28 13:05 ==
LOC: PHYS 11:15
PROVIDERS: Family Provider Internal Medicine; PCP Internal Medicine; Referring Provider Obstetrics & Gynecology; Visit Provider Obstetrics & Gynecology
DX: M62.89 Other specified disorders of muscle (principal); M62.81 Muscle weakness (generalized); N39.41 Urge incontinence; R10.30 Lower abdominal pain, unspecified; K59.00 Constipation, unspecified
CPT/HCPCS: 97110; 97140; 97162; 97535

== ENCOUNTER → 2022-02-13 12:25 | Outpatient (CLI) | payer MEDICARE, OTHER, SELFPAY ==
--- NOTE | 2022-02-13 | DI.US.S_ITS ---
PROCEDURE: US PELVIC COMPLETE INDICATIONS: PROLAPSE OF VAGINAL VAULT. TECHNIQUE: Real-time scanning was performed of the pelvic organs, with image documentation. Additional endovaginal scanning was necessary due to incomplete visualization of the adnexal and endometrial structures by transabdominal scanning. COMPARISON: None. FINDINGS: Uterus: Anteverted measuring 6.2 x 3.6 x 2.8 cm. Endometrium measures 5 mm. Echotexture is heterogeneous. Multiple echogenic foci may represent calcifications. Endometrial cystic changes measuring up to 3 mm. Ovaries: Right-sided volume is 3 cc. Left-sided volume is 1 cc. No significant mass or cystic lesion. Possible subcentimeter region of heterogeneous stroma is noted. Color Doppler flow is documented. Other: No pathologic free fluid. IMPRESSION: Heterogeneous endometrium with cystic changes measuring up to 5 mm. If there is a history of postmenopausal bleeding, consider sampling. We strive to produce accurate, complete, and clear reports of imaging services. To assist us in improving patient care, this report was composed using standard report templates and voice recognition software. Therefore, it may contain abnormal punctuation, insertions and/or omissions. Occasional wrong-word or sound-alike substitutions may occur. Though we review the report and make efforts to correct it, we do recommend that the report be read carefully in proper context to recognize any text inaccuracies. Dictated by: Mc Whitman M.D. on 02/14/2022 at 11:29 Approved by: Mc Whitman M.D. on 02/14/2022 at 11:33
== END ==
PROVIDERS: Family Provider Internal Medicine; PCP Internal Medicine; Referring Provider Obstetrics & Gynecology Female Pelvic Medicine and Reconstructive Surgery; Visit Provider Obstetrics & Gynecology Female Pelvic Medicine and Reconstructive Surgery
DX: N99.3 Prolapse of vaginal vault after hysterectomy (principal)
CPT/HCPCS: 76830; 76856

== ENCOUNTER → 2022-08-21 10:32 | Outpatient (CLI) | payer MEDICARE, OTHER, SELFPAY ==
--- NOTE | 2022-08-21 | DI.RAD.S_ITS ---
Bone Density Report Name: ROHAN CARO Age: 76 Sex: Female Ethnicity: White Date of : 1945 Indication: postmenopausal; screening for osteoporosis; Referring Provider: ABHAY DESAI D.O. Study: Bone densitometry was performed. Exam Date: August 21, 2022 Accession number: [id number] Bone Density: Region BMD T-score Z-score Classification AP Spine(L1-L4) 1.032 -0.1 2.3 Normal Femoral Neck (Left) 0.622 -2.0 0.1 Osteopenia Total Hip (Left) 0.770 -1.4 0.4 Osteopenia Femoral Neck (Right) 0.597 -2.3 -0.2 Osteopenia Total Hip (Right) 0.726 -1.8 0.1 Osteopenia Total Hip Mean 0.748 -1.6 0.3 Osteopenia World Health Organization criteria for BMD impression classify patients as: Normal (T-score at or above -1.0), Osteopenia (T-score between -1.0 and -2.5), or Osteoporosis (T-score at or below -2.5). 10-year Fracture Risk(1): Major Osteoporotic Fracture 15% Hip Fracture 4.3% Reported Risk Factors: [place] (), Neck BMD=0.597, BMI=24.0 (1) FRAX(R) Version 3.08. Fracture probability calculated for an untreated patient. Fracture probability may be lower if the patient has received treatment. Impression: The patient has low bone mass, based on the Right Femoral Neck T-score. The patient has an estimated ten-year risk of hip fracture of 4.3% and an estimated ten-year risk of major fracture of 15%, based on the WHO FRAX algorithm. Discussion: BONE DENSITY IS LOW AT ONE OR MORE SKELETAL SITES. THE PATIENT'S BMD AND CLINICAL RISK FACTORS CONTRIBUTE TO THIS PATIENT'S INCREASED RISK OF FRACTURE. This patient's lowest T-score is low at one or more skeletal sites. It meets the World Health Organization's (WHO) criteria for low bone mass (T-score between -1.0 and -2.5). The patient's 10-year risk of hip fracture as calculated by FRAX exceeds the threshold where pharmacological therapy is recommended by the National Osteoporosis Foundation (NOF). However, all treatment decisions require clinical judgment and consideration of individual patient factors, including patient preferences, comorbidities, previous drug use, risk factors not captured in the FRAX model (e.g., frailty, falls, vitamin D deficiency, increased bone turnover, interval significant decline in bone density) and possible under or overestimation of fracture risk by FRAX. The patient should follow a healthful lifestyle (good nutrition with adequate calcium and vitamin D, and appropriate weight-bearing exercise). Follow-Up: Consider a repeat BMD and Vertebral Fracture Assessment (VFA) exam in 2 years or sooner if medically necessary, to reassess this patient's status. Reported by: TAVIA MERINO M.D. on 08/21/2022 11:29:00 AM.
== END ==
PROVIDERS: Family Provider Family Medicine; PCP Family Medicine; Referring Provider Family Medicine; Visit Provider Family Medicine
DX: Z13.820 Encounter for screening for osteoporosis (principal); Z78.0 Asymptomatic menopausal state; M85.851 Other specified disorders of bone density and structure, right thigh
CPT/HCPCS: 77080

== ENCOUNTER 2022-09-10 10:45 | Outpatient (RCR) | payer MEDICARE, OTHER, SELFPAY ==
--- NOTE | 2022-07-27 15:39 | PT.OIE ---
Current Diagnoses Cystocele, midline (07/27/22) Other female genital prolapse (07/27/22) Past Medical History (Last Reviewed 11/07/21 @ 15:24 by Mima Suero MD) Atrophic vaginitis Closed left ankle fracture Constipation Fractures History of tobacco use HTN (hypertension) (~2005) Left humeral fracture Macular degeneration (~2018) Ovarian cyst (~1975) Prolapse of female pelvic organs (~2020) Rosacea (~2015) Shoulder pain Stress incontinence Past Surgical History (Last Reviewed 11/07/21 @ 15:24 by Mima Suero MD) Anesthesia Fracture, humerus History of ankle surgery (~2009) History of appendectomy (~1966) History of removal of ovarian cyst (~1975) Visit Care Team Role Provider Type Bruce Varela DO Family Provider Non-Staff Primary Care Provider Specialty: Family Practice Address: [address] [place] [address], [id number] Email: Maxine Gordon MD Attending Provider Non-Staff Referring Provider Specialty: Urology Address: [address] [place] [address], [address] Email: Physical Therapy Initial Evaluation PT-OP-A Visit Information Start: 07/25/22 15:09 Freq: Status: Active Protocol: Document 07/27/22 11:18 AMB (Rec: 07/27/22 12:01 AMB [id number]) Out-Patient Physical Therapy Visit Information Visit Information Visit Type Initial Evaluation Visit Start Time 11:15 Visit Stop Time 12:00 Total Visit Minutes 45 Visit Number 1 PT-OP-B Current Condition Start: 07/25/22 15:09 Freq: Status: Active Protocol: Document 07/27/22 11:18 AMB (Rec: 07/27/22 12:01 AMB [id number]) Current Condition History of Current Condition Onset Date 05/09/22 Current Complaints hysterectomy with sling History of Current Condition Patient is recovering from hysterectomy for uterine prolapse. Does have cystocele and rectocele, with extended walking feels like the cystocele drops out and has to change her angle on the toilet so that she can have a bowel movement, does take stool stofteners. Stopped doing yoga and hoping to get back to that. Sometimes in the morning can walk for an hour or two, but then always falls down especially worse at the end of the day. 4 vaginal deliveries in 5.5 years. Personal Factors Other Personal Factors That May Effect hypertension, varicose veins Therapy/Recovery PT-OP-I Pelvic Floor Start: 07/25/22 15:09 Freq: Status: Active Protocol: Document 07/27/22 11:18 AMB (Rec: 07/27/22 12:01 [facility] [id number]) Pelvic Floor Assessment Urine Pelvic Floor Surgery Yes: hysterectomy with mesh Urinary Symptoms Prolapse Leakage Size Small Leakage Cause Cough,Lifting,Sneeze Prolapse Cystocele Grade 2 Rectocele Grade 2 Contraction Ability Voluntary Contraction Moderate Voluntary Relaxation Moderate Manual Muscle Testing Left 3 Manual Muscle Testing Right 3 Manual Muscle Testing Anterior 3 Manual Muscle Testing Posterior 3 Muscle Endurance (Seconds) 5 Number of Quick Contractions In 10 5 Seconds Comments Pelvic Floor Comments Cycstocele visible without bearing. Good strength with first level, but levator ani was weaker. PT-OP-T Assessment and Plan Start: 07/25/22 15:09 Freq: Status: Active Protocol: Document 07/27/22 11:18 AMB (Rec: 07/27/22 12:01 AMB [id number]) Physical Therapy Assessment Rehab Potential Rehabilitation Potential Good Evaluation Complexity Number of Personal Factors/Comorbidities 1-2 Number of Body Systems Impaired 1-2 Clinical Presentation at Evaluation Stable Impairments Impairments Strength Goals One Impairment Pelvic floor strength Short Term Goal (STG) Pat will contract her pelvic floor in standing for 10 seconds. STG Duration 4 weeks Rope Walker Goal (LTG) Pat will show improved pelvic floor strength by dwayne her pelvic floor while squatting to garden. LTG Duration 12 weeks Three Impairment Prolapse Short Term Goal (STG) Pat will walk for one mile without feeling the need to manually resolve her cystocele . 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 LTG Duration 12 weeks Assessment Summary Assessment Pat attends physical therapy almost 4 months s/p hysterectomy with continued cystocele and rectocele sx especially worse with walking and standing at the end of the day. She has previously completed pelvic floor therapy and her first layer of pelvic floor muscles was quite strong, but levator ani continues to need further strengthening. She will benefit from physical therapy for continued levator ani strengthening in the hopes of reducing her rectocele and cystocele symptoms. Physical Therapy Plan Frequency and Duration Frequency of Treatment 1x/Week Duration of treatment (weeks) 12 Plan of Care Start Date 07/27/22 Plan of Care End Date 10/19/22 Therapeutic Interventions Therapeutic Interventions Home Exercise Program,Manual Therapy,Neuromuscular Re- education,Self-Care/Home Management,Therapeutic Activities,Therapeutic Exercises Next Visit Focus/Plan Next Note Type Treatment Note Next Visit Plan sEMG, standing exercises focusing on levator ani
--- NOTE | 2022-07-27 15:39 | PT.OPPOC ---
Physical, Occupational & Speech Therapy At [facility] Current Diagnoses Cystocele, midline (07/27/22) Other female genital prolapse (07/27/22) Visit Care Team Role Provider Type Bruce Varela DO Family Provider Non-Staff Primary Care Provider Specialty: Family Practice Address: [address] [place] [address], [id number] Email: Maxine Gordon MD Attending Provider Non-Staff Referring Provider Specialty: Urology Address: [address] [place] [address], [address] Email: Plan Of Care PT-OP-T Assessment and Plan Start: 07/25/22 15:09 Freq: Status: Active Protocol: Document 07/27/22 11:18 AMB (Rec: 07/27/22 12:01 AMB [id number]) Physical Therapy Assessment Rehab Potential Rehabilitation Potential Good Evaluation Complexity Number of Personal Factors/Comorbidities 1-2 Number of Body Systems Impaired 1-2 Clinical Presentation at Evaluation Stable Impairments Impairments Strength Goals One Impairment Pelvic floor strength Short Term Goal (STG) Pat will contract her pelvic floor in standing for 10 seconds. STG Duration 4 weeks Director Home Goal (LTG) Pat will show improved pelvic floor strength by dwayne her pelvic floor while squatting to garden. LTG Duration 12 weeks Three Impairment Prolapse Short Term Goal (STG) Pat will walk for one mile without feeling the need to manually resolve her cystocele . 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 LTG Duration 12 weeks Assessment Summary Assessment Pat attends physical therapy almost 4 months s/p hysterectomy with continued cystocele and rectocele sx especially worse with walking and standing at the end of the day. She has previously completed pelvic floor therapy and her first layer of pelvic floor muscles was quite strong, but levator ani continues to need further strengthening. She will benefit from physical therapy for continued levator ani strengthening in the hopes of reducing her rectocele and cystocele symptoms. Physical Therapy Plan Frequency and Duration Frequency of Treatment 1x/Week Duration of treatment (weeks) 12 Plan of Care Start Date 07/27/22 Plan of Care End Date 10/19/22 Therapeutic Interventions Therapeutic Interventions Home Exercise Program,Manual Therapy,Neuromuscular Re- education,Self-Care/Home Management,Therapeutic Activities,Therapeutic Exercises Next Visit Focus/Plan Next Note Type Treatment Note Next Visit Plan sEMG, standing exercises focusing on levator ani Plan of Care Dates Plan of Care Start Date 07/27/22 Plan of Care End Date 10/19/22 Electronically Signed by: Katerin Johnson, PT 07/27/22 2310 If you are in agreement with this Plan of Care, please return a signed and dated copy. I have reviewed this Plan of Care and certify that the skilled therapy services above are required to meet the patient?s needs. Physician Signature Date Printed Name and Credentials Clinical Instructor Signature Printed Name and Credentials
--- NOTE | 2022-08-29 14:29 | PT.OTN ---
Current Diagnoses Cystocele, midline (08/29/22) Other female genital prolapse (08/29/22) Physical Therapy Treatment Note PT-OP-A Visit Information Start: 07/25/22 15:09 Freq: Status: Active Protocol: Document 08/29/22 13:32 AMB (Rec: 08/29/22 14:29 AMB [id number]) Out-Patient Physical Therapy Visit Information Visit Information Visit Type Treatment Note Visit Start Time 13:30 Visit Stop Time 14:15 Total Visit Minutes 45 Visit Number 2 PT-OP-B Current Condition Start: 07/25/22 15:09 Freq: Status: Active Protocol: Document 07/27/22 11:18 AMB (Rec: 07/27/22 12:01 AMB [id number]) Current Condition History of Current Condition Onset Date 05/09/22 Current Complaints hysterectomy with sling History of Current Condition Patient is recovering from hysterectomy for uterine prolapse. Does have cystocele and rectocele, with extended walking feels like the cystocele drops out and has to change her angle on the toilet so that she can have a bowel movement, does take stool stofteners. Stopped doing yoga and hoping to get back to that. Sometimes in the morning can walk for an hour or two, but then always falls down especially worse at the end of the day. 4 vaginal deliveries in 5.5 years. Personal Factors Other Personal Factors That May Effect hypertension, varicose veins Therapy/Recovery PT-OP-C Subjective Start: 07/25/22 15:09 Freq: Status: Active Protocol: Document 08/29/22 13:32 AMB (Rec: 08/29/22 14:29 AMB [id number]) OP-PT Subjective Patient Comments Patient Comments Pt has noticed a couple of leaks since last seen in June . PT-OP-I Pelvic Floor Start: 07/25/22 15:09 Freq: Status: Active Protocol: Document 07/27/22 11:18 AMB (Rec: 07/27/22 12:01 AMB [id number]) Pelvic Floor Assessment Urine Pelvic Floor Surgery Yes: hysterectomy with mesh Urinary Symptoms Prolapse Leakage Size Small Leakage Cause Cough,Lifting,Sneeze Prolapse Cystocele Grade 2 Rectocele Grade 2 Contraction Ability Voluntary Contraction Moderate Voluntary Relaxation Moderate Manual Muscle Testing Left 3 Manual Muscle Testing Right 3 Manual Muscle Testing Anterior 3 Manual Muscle Testing Posterior 3 Muscle Endurance (Seconds) 5 Number of Quick Contractions In 10 5 Seconds Comments Pelvic Floor Comments Cycstocele visible without bearing. Good strength with first level, but levator ani was weaker. PT-OP-Q Treatments Start: 07/25/22 15:09 Freq: Status: Active Protocol: Document 08/29/22 13:32 AMB (Rec: 08/29/22 14:29 AMB [id number]) Therapeutic Exercises Sitting Exercises tighten TA and pelvic floor Sitting Exercise Name with june Comments cue breath long holds Reps/Minutes 10 Other Exercises plank Reps/Minutes 30x2 Comments cue breath PT-OP-T Assessment and Plan Start: 07/25/22 15:09 Freq: Status: Active Protocol: Document 08/29/22 13:32 AMB (Rec: 08/29/22 14:29 AMB [id number]) Physical Therapy Assessment Goals One Impairment Pelvic floor strength Short Term Goal (STG) Pat will contract her pelvic floor in standing for 10 seconds. STG Duration 4 weeks Fpc Goal (LTG) Pat will show improved pelvic floor strength by dwayne her pelvic floor while squatting to garden. LTG Duration 12 weeks Three Impairment Prolapse Short Term Goal (STG) Pat will walk for one mile without feeling the need to manually resolve her cystocele . 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 LTG Duration 12 weeks Assessment Summary Assessment Pt doesn't really feel a significant change in sx, pt has been doing her exercises with her legs up. Continue to feel pressure especially towards the afternoon/evening when standing. Encouraged in gentle core/pelvic floor progression. Physical Therapy Plan Frequency and Duration Frequency of Treatment 1x/Week Duration of treatment (weeks) 12 Plan of Care Start Date 07/27/22 Plan of Care End Date 10/19/22 Therapeutic Interventions Therapeutic Interventions Home Exercise Program,Manual Therapy,Neuromuscular Re- education,Self-Care/Home Management,Therapeutic Activities,Therapeutic Exercises Modalities Biofeedback,Electric Stimulation Next Visit Focus/Plan Next Note Type Treatment Note Next Visit Plan sEMG, standing exercises focusing on levator ani
--- NOTE | 2022-09-03 15:43 | PT.OTN ---
Current Diagnoses Cystocele, midline (09/03/22) Other female genital prolapse (09/03/22) Physical Therapy Treatment Note PT-OP-A Visit Information Start: 07/25/22 15:09 Freq: Status: Active Protocol: Document 09/03/22 14:32 AMB (Rec: 09/03/22 15:43 AMB [id number]) Out-Patient Physical Therapy Visit Information Visit Information Visit Type Treatment Note Visit Start Time 14:30 Visit Stop Time 15:15 Total Visit Minutes 45 Visit Number 3 PT-OP-B Current Condition Start: 07/25/22 15:09 Freq: Status: Active Protocol: Document 07/27/22 11:18 AMB (Rec: 07/27/22 12:01 AMB [id number]) Current Condition History of Current Condition Onset Date 05/09/22 Current Complaints hysterectomy with sling History of Current Condition Patient is recovering from hysterectomy for uterine prolapse. Does have cystocele and rectocele, with extended walking feels like the cystocele drops out and has to change her angle on the toilet so that she can have a bowel movement, does take stool stofteners. Stopped doing yoga and hoping to get back to that. Sometimes in the morning can walk for an hour or two, but then always falls down especially worse at the end of the day. 4 vaginal deliveries in 5.5 years. Personal Factors Other Personal Factors That May Effect hypertension, varicose veins Therapy/Recovery PT-OP-C Subjective Start: 07/25/22 15:09 Freq: Status: Active Protocol: Document 09/03/22 14:32 AMB (Rec: 09/03/22 15:43 AMB [id number]) OP-PT Subjective Patient Comments Patient Comments Pt is sore and sensitive today does have some rawness. PT-OP-I Pelvic Floor Start: 07/25/22 15:09 Freq: Status: Active Protocol: Document 07/27/22 11:18 AMB (Rec: 07/27/22 12:01 AMB [id number]) Pelvic Floor Assessment Urine Pelvic Floor Surgery Yes: hysterectomy with mesh Urinary Symptoms Prolapse Leakage Size Small Leakage Cause Cough,Lifting,Sneeze Prolapse Cystocele Grade 2 Rectocele Grade 2 Contraction Ability Voluntary Contraction Moderate Voluntary Relaxation Moderate Manual Muscle Testing Left 3 Manual Muscle Testing Right 3 Manual Muscle Testing Anterior 3 Manual Muscle Testing Posterior 3 Muscle Endurance (Seconds) 5 Number of Quick Contractions In 10 5 Seconds Comments Pelvic Floor Comments Cycstocele visible without bearing. Good strength with first level, but levator ani was weaker. PT-OP-Q Treatments Start: 07/25/22 15:09 Freq: Status: Active Protocol: Document 09/03/22 14:32 AMB (Rec: 09/03/22 15:43 AMB [id number]) Therapeutic Exercises Supine Exercises legs on ball Supine Exercise Name with kegels Reps/Minutes 10 legs on wall Supine Exercise Name pelvic floor contraction Reps/Minutes 2x10 1 Supine Exercise Name bridge Reps/Minutes 2x10 Comments pelvic floor Sitting Exercises marching on tball Sitting Exercise Name 65cm Reps/Minutes 2x20 Comments breathing, pelvic floor tighten TA and pelvic floor Sitting Exercise Name with march Comments cue breath PT-OP-T Assessment and Plan Start: 07/25/22 15:09 Freq: Status: Active Protocol: Document 09/03/22 14:32 AMB (Rec: 09/03/22 15:43 AMB [id number]) Physical Therapy Assessment Goals One Impairment Pelvic floor strength Short Term Goal (STG) Pat will contract her pelvic floor in standing for 10 seconds. STG Duration 4 weeks Longterm Goal (LTG) Pat will show improved pelvic floor strength by dwayne her pelvic floor while squatting to garden. LTG Duration 12 weeks Three Impairment Prolapse Short Term Goal (STG) Pat will walk for one mile without feeling the need to manually resolve her cystocele . STG Duration 4 weeks Clearing House Clerk Goal (LTG) Pat will cook fast food without pelvic floor pressure. LTG Duration 12 weeks Assessment Summary Assessment Pt had a worsening of sx over the weekend with more yardwork . Feeling better with legs up on wall. Physical Therapy Plan Frequency and Duration Frequency of Treatment 1x/Week Duration of treatment (weeks) 12 Plan of Care Start Date 07/27/22 Plan of Care End Date 10/19/22 Therapeutic Interventions Therapeutic Interventions Home Exercise Program,Manual Therapy,Neuromuscular Re- education,Self-Care/Home Management,Therapeutic Activities,Therapeutic Exercises Modalities Biofeedback,Electric Stimulation Next Visit Focus/Plan Next Note Type Treatment Note Next Visit Plan sEMG, standing exercises focusing on levator ani
--- NOTE | 2022-09-10 13:30 | PT.OTN ---
Current Diagnoses Cystocele, midline (09/10/22) Other female genital prolapse (09/10/22) Physical Therapy Treatment Note PT-OP-A Visit Information Start: 07/25/22 15:09 Freq: Status: Active Protocol: Document 09/10/22 11:02 AMB (Rec: 09/10/22 11:21 AMB [id number]) Out-Patient Physical Therapy Visit Information Visit Information Visit Type Treatment Note Visit Start Time 10:45 Visit Stop Time 11:30 Total Visit Minutes 45 Visit Number 4 PT-OP-B Current Condition Start: 07/25/22 15:09 Freq: Status: Active Protocol: Document 07/27/22 11:18 AMB (Rec: 07/27/22 12:01 AMB [id number]) Current Condition History of Current Condition Onset Date 05/09/22 Current Complaints hysterectomy with sling History of Current Condition Patient is recovering from hysterectomy for uterine prolapse. Does have cystocele and rectocele, with extended walking feels like the cystocele drops out and has to change her angle on the toilet so that she can have a bowel movement, does take stool stofteners. Stopped doing yoga and hoping to get back to that. Sometimes in the morning can walk for an hour or two, but then always falls down especially worse at the end of the day. 4 vaginal deliveries in 5.5 years. Personal Factors Other Personal Factors That May Effect hypertension, varicose veins Therapy/Recovery PT-OP-C Subjective Start: 07/25/22 15:09 Freq: Status: Active Protocol: Document 09/10/22 11:02 AMB (Rec: 09/10/22 11:21 AMB [id number]) OP-PT Subjective Patient Comments Patient Comments Pt was doing yardwork this weekend which increased her sx . PT-OP-I Pelvic Floor Start: 07/25/22 15:09 Freq: Status: Active Protocol: Document 07/27/22 11:18 AMB (Rec: 07/27/22 12:01 AMB [id number]) Pelvic Floor Assessment Urine Pelvic Floor Surgery Yes: hysterectomy with mesh Urinary Symptoms Prolapse Leakage Size Small Leakage Cause Cough,Lifting,Sneeze Prolapse Cystocele Grade 2 Rectocele Grade 2 Contraction Ability Voluntary Contraction Moderate Voluntary Relaxation Moderate Manual Muscle Testing Left 3 Manual Muscle Testing Right 3 Manual Muscle Testing Anterior 3 Manual Muscle Testing Posterior 3 Muscle Endurance (Seconds) 5 Number of Quick Contractions In 10 5 Seconds Comments Pelvic Floor Comments Cycstocele visible without bearing. Good strength with first level, but levator ani was weaker. PT-OP-Q Treatments Start: 07/25/22 15:09 Freq: Status: Active Protocol: Document 09/10/22 13:09 AMB (Rec: 09/12/22 13:10 AMB [id number]) Therapeutic Exercises Supine Exercises 1 Supine Exercise Name bridge Reps/Minutes 2x10 Comments pelvic floor Sitting Exercises marching on tball Sitting Exercise Name 65cm Reps/Minutes 2x20 Comments breathing, pelvic floor tighten TA and pelvic floor Sitting Exercise Name with march Comments cue breath PT-OP-T Assessment and Plan Start: 07/25/22 15:09 Freq: Status: Active Protocol: Document 09/10/22 11:02 AMB (Rec: 09/10/22 11:21 AMB [id number]) Physical Therapy Assessment Goals One Impairment Pelvic floor strength Short Term Goal (STG) Pat will contract her pelvic floor in standing for 10 seconds. STG Duration MET Senior Living Goal (LTG) Pat will show improved pelvic floor strength by dwayne her pelvic floor while squatting to garden. LTG Duration NOT MET Three Impairment Prolapse Short Term Goal (STG) Pat will walk for one mile without feeling the need to manually resolve her cystocele . 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 LTG Duration NOT MET Assessment Summary Assessment Pt reports difficulty with yardwork. Pt is doing better with the quick flicks, but is feeling she is about as good as she can be wihtout getting another surgery which she is planning on in the fall. She will continue her exercise program and would be welcome back after her upcoming surgery. Physical Therapy Plan Frequency and Duration Frequency of Treatment 1x/Week Duration of treatment (weeks) 12 Plan of Care Start Date 07/27/22 Plan of Care End Date 10/19/22 Therapeutic Interventions Therapeutic Interventions Home Exercise Program,Manual Therapy,Neuromuscular Re- education,Self-Care/Home Management,Therapeutic Activities,Therapeutic Exercises Modalities Biofeedback,Electric Stimulation Discharge Physical Therapy Discharge Reasons Patient Request Next Visit Focus/Plan Next Note Type Treatment Note Next Visit Plan sEMG, standing exercises focusing on levator ani
== END 2022-09-18 15:51 | disposition home or self-care (01) ==
LOC: PHYS 10:45
PROVIDERS: Family Provider Family Medicine; PCP Family Medicine; Referring Provider Obstetrics & Gynecology Female Pelvic Medicine and Reconstructive Surgery; Visit Provider Obstetrics & Gynecology Female Pelvic Medicine and Reconstructive Surgery
DX: N81.11 Cystocele, midline (principal); N81.89 Other female genital prolapse
CPT/HCPCS: 97110; 97161

== ENCOUNTER → 2022-09-18 14:06 | Outpatient (CLI) | payer MEDICARE, OTHER, SELFPAY ==
[2022-09-18 15:19] LABS: Free T4, Direct Thyroxine 0.86 ng/dL (0.78-2.19)
[2022-09-18 15:33] LABS: Thyroid Stimulating Hormone 2.27 uIU/mL (0.47-4.68)
== END ==
PROVIDERS: Family Provider Family Medicine; PCP Family Medicine; Referring Provider Nurse Practitioner Acute Care; Visit Provider Nurse Practitioner Acute Care
DX: R00.2 Palpitations (principal)
CPT/HCPCS: 36415; 84439; 84443

== ENCOUNTER → 2022-10-12 12:21 | Outpatient (CLI) | payer MEDICARE, OTHER, SELFPAY ==
--- NOTE | 2022-10-12 | DI.ECHO.S_ITS ---
[facility] +---------+ : : [address] [place] : : : : [id number] : : : : Phone: [phone]+ Echocardiogram Report + + :Name: ROHAN CARO Study Date: 10/12/2022 Height: 61 in : :[facility] ReadingLocation: Weight: 127 lb : : Gender: Female BSA: 1.6 m2 : :: 1945 Age: 76 yrs BP: 161/77 mmHg: :Reason For Study: PALPITATIONS, ABNORMAL EKG : :Ordering Physician: SANTOS, : :ALIDA Frey Performed By: Kayleigh Spear : :Referring: ALIDA MOMIN : + + Interpretation Summary The ejection fraction is estimated to be 55-60%. Diastolic parameters suggest probable normal left ventricular diastolic function and normal filling pressures. The right ventricle is normal in size and function. There is mild mitral regurgitation. There is mild aortic regurgitation. There is mild tricuspid regurgitation. The right ventricular systolic pressure is estimated to be at least 26 mmHg based on an estimated right atrial pressure of 3 mm Hg. Procedure: A two-dimensional transthoracic echocardiogram with color flow and Doppler was performed. The study quality was technically adequate. There is no prior echocardiogram noted for this patient. The patient had occasional PVCs during the exam. The patient was in sinus rhythm with heart rates between 61-76 bpm during the exam. Left Ventricle: The left ventricle is normal in size and wall thickness. The ejection fraction is estimated to be 55-60%. Diastolic parameters suggest probable normal left ventricular diastolic function and normal filling pressures. Right Ventricle: The right ventricle is normal in size and function. Atria: The left atrial size is normal. Right atrial size is normal. There is no Doppler evidence for an interatrial shunt. Mitral Valve: The mitral valve is normal. There is mild mitral regurgitation. Aortic Valve: The aortic valve is not well visualized. There is no aortic valve stenosis. There is mild aortic regurgitation. Tricuspid Valve: The tricuspid valve is normal in structure and function. There is mild tricuspid regurgitation. The right ventricular systolic pressure is estimated to be at least 26 mmHg based on an estimated right atrial pressure of 3 mm Hg. Pulmonic Valve: The pulmonic valve is not well visualized. There is no pulmonic valvular regurgitation. Great Vessels: The aortic root is normal size. The dimensions of the ascending aorta are normal. The IVC is of normal diameter and collapses greater than 50% with a sniff. This suggests a low right atrial pressure of 3 mm Hg. Pericardium/ Pleura There is no pericardial effusion. There is no pleural effusion. MMode/2D Measurements & Calculations LVIDd: 4.2 cm LVOT diam: 2.0 cm LVIDs: 3.0 cm Ao root diam: 2.9 cm FS: 28.7 % asc Aorta Diam: 2.9 cm IVSd: 0.69 cm Ao Arch Diam (Prox Trans): 2.3 cm LVPWd: 0.64 cm LV trujillo. diameter/BSA (cm/m^2): 2.7 LV sys. diameter/BSA (cm/m^2): 1.9 LA A2 area: 16.6 cm2 RA long axis: 3.4 cm LA A4 area: 9.4 cm2 RA area: 10.1 cm2 LA length (vol): 4.1 cm RA vol: 25.6 ml LA vol: 32.5 ml RA : 16.4 ml/m2 LA vol index: 20.9 ml/m2 IVC diam: 0.92 cm RVD1 (basal): 2.9 cm RVD2 (mid): 2.2 cm TAPSE: 1.8 cm Doppler Measurements & Calculations Ao V2 max: 107.9 cm/sec LVOT Max Roe: 88.8 cm/sec Ao V2 mean: 72.9 cm/sec LV V1 max P.2 mmHg Ao max P.7 mmHg LV V1 VTI: 18.8 cm Ao mean P.4 mmHg MESFIN(I,D): 2.9 cm2 Ao V2 VTI: 20.5 cm MESFIN(V,D): 2.6 cm2 sev ratio: 0.91 MESFIN indexed to BSA (cm^2/m^2): 1.9 MV E max roe: 70.4 cm/sec TR max roe: 237.2 cm/sec MV A max roe: 110.4 cm/sec TR max P.5 mmHg MV E/A: 0.64 PA V2 max: 84.9 cm/sec Med Peak E' Roe: 8.3 cm/sec PA V2 mean: 64.6 cm/sec E/E' med: 8.5 PA mean P.8 mmHg Lat Peak E' Roe: 9.1 cm/sec PA pr(Accel): 39.6 mmHg E/E' lat: 7.8 E/e' average: 8.1 MV dec time: 0.32 sec SV(LVOT): 60.4 ml Reading Physician:04:52 PM
== END ==
PROVIDERS: Family Provider Family Medicine; PCP Family Medicine; Referring Provider Internal Medicine Cardiovascular Disease; Visit Provider Internal Medicine Cardiovascular Disease
DX: R94.31 Abnormal electrocardiogram [ECG] [EKG] (principal); R00.2 Palpitations; I08.3 Combined rheumatic disorders of mitral, aortic and tricuspid valves
CPT/HCPCS: 93306

== ENCOUNTER → 2023-05-08 10:49 | Outpatient (CLI) | payer MEDICARE, OTHER, SELFPAY ==
--- NOTE | 2023-05-08 10:52 | DI.US.S_ITS ---
PROCEDURE: US ABDOMEN LIMITED INDICATIONS: Incisional hernia without obstruction or gangrene TECHNIQUE: Real-time focused scanning was performed of the abdomen, with image documentation. COMPARISON: None. FINDINGS: No visualized hernia. There is a focus in the subcutaneous fat demonstrating heterogeneous echogenicity the right superior aspect of the umbilicus measuring 8 mm. IMPRESSION: No visualized hernia. Focal area of heterogeneous echogenicity within the subcutaneous fat. This is overall nonspecific. This could represent a complex fluid collection such as resolving abscess, hematoma or phlegmon. However, other etiologies cannot be excluded. Dictated by: Selene Stallings M.D. on 05/08/2023 at 16:45 Approved by: Selene Stallings M.D. on 05/08/2023 at 16:46
== END ==
PROVIDERS: Family Provider Family Medicine; PCP Family Medicine; Referring Provider Surgery; Visit Provider Surgery
DX: K43.2 Incisional hernia without obstruction or gangrene (principal)
CPT/HCPCS: 76705

== ENCOUNTER → 2023-05-24 09:51 | Outpatient (CLI) | payer MEDICARE, OTHER, SELFPAY ==
--- NOTE | 2023-05-24 09:53 | DI.CT.S_ITS ---
PROCEDURE: CT ABDOMEN PELVIS W CON INDICATIONS: INCISIONAL HERNIA / MASS SWELLING TECHNIQUE: After the administration of intravenous contrast, axial sections acquired from the lung bases to the pubic symphysis. Coronal and sagittal reformats were performed. For radiation dose reduction, the following was used: automated exposure control, adjustment of mA and/or kV according to patient size. COMPARISON: None. FINDINGS: Image quality: Diagnostic. Lower Chest: No significant findings. ABDOMEN: Liver: No solid mass. Gallbladder: Unremarkable. Biliary ducts: No biliary dilation. Pancreas: No ductal dilation. Spleen: Size is within normal limits. Adrenal Glands: No adrenal nodules. Kidneys and Ureters: No hydronephrosis. No solid mass. No complex renal cystic lesion which requires follow up. Stomach and Bowel: Normal colonic caliber, without significant wall thickening. The appendix is not visualized; however there is no discrete right lower quadrant fluid or fat stranding to suggest acute appendicitis. There are scattered sigmoid diverticula. No evidence for diverticulitis. Peritoneum: No abnormal intraperitoneal fluid. No free air. Ventral Wall: There is a wide necked, fat containing ventral hernia which measures 4.2 cm at the neck. A loop of nondilated, stool filled transverse colon is present within this herniation. No findings to suggest strangulation or ischemia. Abdominal Nodes: No retroperitoneal or mesenteric adenopathy by size criteria. Vessels: Aorta and inferior vena cava are normal in size. There are scattered atheromatous calcifications throughout the aorta and iliac arteries bilaterally. PELVIS: Pelvic Organs: Unremarkable. Bladder: Unremarkable. Pelvic Nodes: No enlarged lymph nodes. Miscellaneous: No inguinal hernias are seen. Bones: No aggressive osseous abnormality. IMPRESSION: 1. Fat containing ventral hernia which contains the anterior wall of a loop of nondilated, non strangulated appearing transverse colon. This is wide necked and appears likely reducible. 2. Diverticulosis. No acute diverticulitis. Dictated by: Tangela Hernandez M.D. on 05/24/2023 at 13:08 Approved by: Tangela Hernanedz M.D. on 05/24/2023 at 13:12
[2023-05-24 10:30] LABS: Estimated Glomerular Filt Rate > 60 mL/min (>60)
== END ==
PROVIDERS: Radiology Diagnostic Radiology; Family Provider Family Medicine; PCP Family Medicine; Referring Provider Surgery; Visit Provider Surgery
DX: K43.2 Incisional hernia without obstruction or gangrene (principal); K57.30 Diverticulosis of large intestine without perforation or abscess without bleeding; R22.2 Localized swelling, mass and lump, trunk; N95.2 Postmenopausal atrophic vaginitis
CPT/HCPCS: 36415; 74177; 82565; Q9967

== ENCOUNTER 2024-03-18 09:37 | Day surgery (SDC) | payer MEDICARE, OTHER, SELFPAY ==
[2024-03-18 10:19] VITALS: BP 110/63; PULSE 67; RESP 16; TEMP 36.6; O2SAT 100
--- NOTE | 2024-03-18 10:40 | P.HP_ITS ---
History of Present Illness History of Present Illness Date Patient Seen: 03/18/24 Chief complaint: SDC Narrative: Cologuard positive [facility] Medical History Atrophic vaginitis Closed left ankle fracture Constipation Fractures History of tobacco use HTN (hypertension) (~2005) Left humeral fracture Macular degeneration (~2018) Ovarian cyst (~1975) Prolapse of female pelvic organs (~2020) Rosacea (~2015) Shoulder pain Stress incontinence Surgical History Anesthesia Fracture, humerus History of ankle surgery (~2009) History of appendectomy (~1966) History of removal of ovarian cyst (~1975) Family History Father Accident Mother Pneumonia History of post-polio syndrome Sister Stroke History of heart disease Family/Other Accident Social History marital status: number of children: 4 household members: spouse lives independently: Yes caregiver/support person: No housing: house pets and animals: Yes occupational status: other leisure activities: other other: yoga seatbelt use: always Smoking Status: Former smoker alcohol intake: current during the past year weight has: remained stable well-balanced diet: daily or most days caffeine: Yes eating out: other Type(s) of exercise: walking frequency: daily Meds Home Medications and Allergies Home Medications Medication Instructions Recorded Confirmed Type amlodipine 5 mg tablet 5 mg PO DAILY 11/21/20 03/18/24 History losartan 100 mg tablet 100 mg PO DAILY 11/21/20 03/18/24 History esrtrogen cream vaginal .2-3 x week 12/16/20 11/22/21 History oxyquinoline 0.025 %-sodium lauryl 1 ea vaginal .weekly pessary use 10/10/21 11/22/21 Rx sulfate 0.01 % vaginal gel #113.4 grams Allergies Allergy/AdvReac Type Severity Reaction Status Date / Time No Known Drug Allergies Allergy Verified 03/18/24 10:18 Exam Vital Signs (past 8 hours): - 03/18/24 10:19 Temperature 97.9 F Pulse Rate 67 Respiratory Rate 16 Blood Pressure 110/63 Pulse Oximetry 100 Oxygen Delivery Method Room Air Oxygen Flow Rate 0 Oxygen Delivery Method Room Air Oxygen Flow Rate 0 Narrative Exam Narrative: Oropharynx free of lesions Chest clear to auscultation percussion Cardiac exam reveals no S3 or murmur Assessment & Plan Assessment & Plan narrative: Cologuard positivity in woman with no history of polyps last colonoscopy a bit over 10 years ago. Need for colonoscopy. Risks, benefits, alternatives have been explained Time-Based Coding :: [TOTAL MINUTES] spent with patient and on the chart (including review of chart, obtaining history, exam, reviewing outside data, placing orders, documenting exam and treatment plan, and counseling patient) on [DATE].
--- NOTE | 2024-03-18 10:41 | PM.OP.COLON ---
Operative Date/Time/Diagnoses Date of procedure: 03/18/24 Pre-op diagnosis: See indication and findings Procedure & Clinicians Study performed: Colonoscopy Indications: Cologuard positive Surgeon: Shalini Leo Procedure Notes Procedure in detail: After informed consent was obtained the patient was placed in left lateral decubitus position. The video colonoscope was introduced the rectum slowly advanced cecum. Preparation was good. On slow withdrawal mucosa was carefully examined. The scope was removed. The patient tolerated procedure well. Blood loss none Complications none Sedation mac Findings 1. Scattered left-sided diverticulosis but otherwise negative colonoscopy to cecum If the patient is anemic than EGD should be considered.
[2024-03-18 11:22] VITALS: BP 89/43; PULSE 77; RESP 22; TEMP 36.4; O2SAT 94
[2024-03-18 11:28] VITALS: BP 89/54; PULSE 85; RESP 17; O2SAT 97
[2024-03-18 11:32] VITALS: BP 113/60; PULSE 79; RESP 18; O2SAT 98
[2024-03-18 11:36] VITALS: BP 119/61; PULSE 75; RESP 17; O2SAT 97
[2024-03-18 11:57] VITALS: BP 117/58; PULSE 72; RESP 16; O2SAT 98
== END 2024-03-18 12:02 | disposition home or self-care (01) ==
PROVIDERS: Family Provider Family Medicine; PCP Family Medicine; Referring Provider Internal Medicine Gastroenterology; Visit Provider Internal Medicine Gastroenterology
PROC: 0DJD8ZZ Inspection of Lower Intestinal Tract, Via Natural or Artificial Opening Endoscopic (ICD-10-PCS; CPT 45378; principal; 2024-03-18 11:00)
DX: Z12.11 Encounter for screening for malignant neoplasm of colon (principal); R19.5 Other fecal abnormalities; K57.30 Diverticulosis of large intestine without perforation or abscess without bleeding
CPT/HCPCS: G0121; J2704

== ENCOUNTER → 2024-09-03 12:59 | Outpatient (CLI) | payer MEDICARE, OTHER, SELFPAY ==
--- NOTE | 2024-09-03 13:00 | DI.RAD.S_ITS ---
PROCEDURE: XR DEXA AXIAL SKELETON INDICATIONS: SCREENING FOR OSTEOPOROSIS COMPARISON: [facility], [place], XR DEXA AXIAL SKELETON, 08/21/2022, 10:44. FINDINGS: Lumbar Spine: Bone mineral density 1.062 g/cm2, T score 0.1. There is interval 2.1% increase in total lumbar spine bone mineral density. Left Femoral Neck: Bone mineral density 0.592 g/cm2, T score -2.3. There is interval 4.9% decrease in left femoral neck bone mineral density. Left Hip: Bone mineral density 0.752 g/cm2, T score -1.6. There is interval 2.3% decrease in left total hip bone mineral density. Fracture Risk Calculation (when applicable): 10-year fracture risk of a major osteoporotic fracture 16 percent and of a hip fracture 4.9 percent. (T score greater or equal to -1.0 to: NORMAL) (T score from -1.1 to -2.4: OSTEOPENIA) (T score less than or equal to -2.5: OSTEOPOROSIS) IMPRESSION: Osteopenia. Follow-up guidelines as follows: Osteoporosis: Consider a repeat DEXA and Vertebral Fracture Assessment (VFA) exam in 2 years or sooner if medically necessary, to reassess this patient's status. Osteopenia: Consider a repeat DEXA in 2-3 years to reassess this patient's status, or if there is a new clinical indication. Normal: Consider a repeat DEXA in 5 years or sooner, or if there is a new clinical indication. All treatment decisions require clinical judgment and consideration of individual patient factors, including patient preferences, comorbidities, previous drug use, risk factors not captured in the FRAX model (e.g., frailty, falls, vitamin D deficiency, increased bone turnover, interval significant decline in bone density ) and possible under- or over-estimation of fracture risk by FRAX. In addition, the NOF Guide recommends that FDA-approved medical therapies be considered in postmenopausal women and men age >= 50 years with a: * Hip or vertebral (clinical or morphometric) fracture * T-score of <=-2.5 at the spine or hip * Ten-year fracture probability by FRAX of >= 3% for hip fracture or >=20% for major osteoporotic fracture. Dictated by: Wallace Patterson M.D. on 09/03/2024 at 20:51 Approved by: Wallace Patterson M.D. on 09/03/2024 at 20:53
== END ==
LOC: RAD 13:00
PROVIDERS: Family Provider Family Medicine; PCP Family Medicine; Referring Provider Family Medicine; Visit Provider Family Medicine
DX: M85.89 Other specified disorders of bone density and structure, multiple sites (principal)
CPT/HCPCS: 77080

== ENCOUNTER 2025-01-14 09:45 | Outpatient (RCR) | payer MEDICARE, OTHER, SELFPAY ==
--- NOTE | 2024-09-03 16:30 | PT.OIE ---
Current Diagnoses Other specified urinary incontinence (09/08/24) Pelvic muscle wasting (09/08/24) Other female genital prolapse (09/08/24) Past Medical History (Last Reviewed 11/07/21 @ 15:24 by Mima Suero MD) Atrophic vaginitis Closed left ankle fracture Constipation Fractures History of tobacco use HTN (hypertension) (~2005) Left humeral fracture Macular degeneration (~2018) Ovarian cyst (~1975) Prolapse of female pelvic organs (~2020) Rosacea (~2015) Shoulder pain Stress incontinence Past Surgical History (Last Reviewed 11/07/21 @ 15:24 by Mima Suero MD) Anesthesia Fracture, humerus History of ankle surgery (~2009) History of appendectomy (~1966) History of removal of ovarian cyst (~1975) Visit Care Team Role Provider Type Pasquale Del Rosario DO Primary Care Provider Non-Staff Specialty: [facility] Practice Address: [place], [address] Email: Bruce Varela DO Family Provider Non-Staff Specialty: [facility] Address: [address] [place] [address], [id number] Email: Maxine Gordon MD Attending Provider Non-Staff Referring Provider Specialty: Urology Address: [address] [place] [address], [id number] Email: Physical Therapy Initial Evaluation PT-OP-A Visit Information Start: 09/03/24 08:10 Freq: Status: Active Protocol: Document 09/03/24 11:30 [facility] (Rec: 09/03/24 12:21 [facility] [id number]) Out-Patient Physical Therapy Visit Information Visit Information Visit Type Initial Evaluation Visit Start Time 11:30 Visit Stop Time 12:15 Visit Number 1 Evaluation Information Evaluation Date 09/03/24 PT-OP-B Current Condition Start: 09/03/24 08:10 Freq: Status: Active Protocol: Document 09/03/24 11:30 [facility] (Rec: 09/03/24 11:57 [facility] [id number]) Current Condition History of Current Condition Onset Date 3 years ago Current Complaints pelvic floor weakness, pelvic pressure/heaviness,urinary/ fecal incontinence History of Current Condition pt reports she has had 3 surgeries in 3 years due to pelvic organ prolapse for all 3 pelvic organs She has had a hysterectomy and a mesh sling in 2022 and then she developed a large inguinal hernia on the right side and she had a second robotic surgery to repair the hernia, and there is a [address] Then in may she went back in for surgery and had cystocele and rectocele repaired. Arianne was told she has minimal pelvic floor strength. She walks a lot for exercises but if she over does it then she can feel symptoms of pelvic pressure and heaviness. She has quit lifting as she was doing a lot of gardening and this was contributing to her pelvic pressure symptoms. she has a history of 4 vaginal deliveries. She has been on miralax x 3 years and she is adding in fiber so she is having bowel movements two times a day now. She does report at times she will experience bowel urgency with leakage. She does experience urinary leakage as well and this can be worse first thing in the am as she wakes with a full bladder. Pat reports she often isn't making it to the bathroom without leaking in the am. She drinks 2 cups of coffee and green tea as well as water throughout the day. Treatment Goals Patient/Caregiver Goals Treatment goals include decreasing pelvic pressure and heaviness, decreasing incontinence and preventing any further prolapse Current Functional Impairments (Reported) Functional Limitations- Mobility/Gait Arianne has osteopenia and is working hard at walking for exercise but she experiences increased pelvic pressure so is limited in her walking distance PT-OP-C Subjective Start: 09/03/24 08:10 Freq: Status: Active Protocol: Document 09/03/24 11:30 [facility] (Rec: 09/08/24 12:51 [facility] [id number]) Patient Questionnaires Pelvic Pain and Urgency/Frequency Patient Symptom Scale Pelvic Pain Score 18 PT-OP-I Pelvic Floor Start: 09/03/24 08:10 Freq: Status: Active Protocol: Document 09/03/24 11:30 [facility] (Rec: 09/08/24 12:51 [facility] [id number]) Pelvic Floor Assessment Urine Pelvic Floor Surgery Yes Urinary Symptoms Urge Sensation Other Urinary Symptoms urinary incontinence especially in the am once she wakes up, pt notes she will leak on the way to the bathroom Leakage Size Small Pelvic Clock Pelvic Clock 12-3 Atrophy Pelvic Clock 3-6 Atrophy Pelvic Clock 6-9 Atrophy Pelvic Clock 9-12 Atrophy Prolapse Cystocele Grade 2 Contraction Ability Voluntary Contraction Weak Manual Muscle Testing Left 2 Manual Muscle Testing Right 2 Manual Muscle Testing Anterior 2 Manual Muscle Testing Posterior 2 Muscle Endurance (Seconds) 4 PT-OP-Q Treatments Start: 09/03/24 08:10 Freq: Status: Active Protocol: Document 09/03/24 11:30 [facility] (Rec: 09/03/24 12:22 [facility] [id number]) Therapeutic Exercises Supine Exercises pelvic floor long holds Side bilateral Reps/Minutes 10 reps holding 10 seconds pelvic floor relaxed awareness Supine Exercise Name pt able to get resting tone to basline Comments 3 min pelvic floor contraction with ball squeeze Reps/Minutes 10 reps holding 5 seconds Self-Care/Home Management Treatment Education Patient Education Home Exercise Program Other Education pt was educated in pressure systems and making sure she is not holding her pressure, exhale with the contraction She was given a Hand out for HEP of adductor assist with pelvic floor contraction 5 sec hold 10 sec rest, given a bladder voiding log. PT-OP-T Assessment and Plan Start: 09/03/24 08:10 Freq: Status: Active Protocol: Document 09/03/24 11:30 [facility] (Rec: 09/08/24 08:33 [facility] [id number]) Physical Therapy Assessment Rehab Potential Rehabilitation Potential Excellent Evaluation Complexity Number of Personal Factors/Comorbidities 1-2 Number of Body Systems Impaired 3 Clinical Presentation at Evaluation Stable Impairments Impairments Activity Tolerance,Functional Activities,Strength,Tone Other Impairments pelvic organ prolapse, urinary incontinence Goals 3 Impairment urinary incontinence that is worse in the am Care Home Goal (LTG) Pat reports a overall reduction of urinary incontinence LTG Duration 8 weeks 2 Impairment Decreased pelvic floor endurance Short Term Goal (STG) Pat is able to sustain a pelvic floor contraction in supine x 10 seconds STG Duration 4 weeks Care Home Goal (LTG) Pat is able to sustain a pelvic floor contraction in sitting x 10 seconds LTG Duration 8 weeks 1 Impairment pelvic floor weakness, MMT of 2/5 throughout all martinez of the levator ani Short Term Goal (STG) Pat is educated on pelvic floor strengthening for a HEP STG Duration 3 weeks Care Home Goal (LTG) Pat is able to improve pelvic floor strength by 1 muscle grade to 3/5 MMT or better LTG Duration 8 weeks Assessment Summary Assessment Pat is a 78 year old female referred to PT with c/o urinary incontinence, prolapse , and pelvic floor weakness. Arianne has undergone multiple surgeries i n the past 3 years including hysterectomy and mesh sling in 2022. After this surgery she developed a abdominal hernia on the right side. She underwent surgical repair with mesh to fix the hernia. In May 2024 she underwent a additional cystocele and rectocele repair and she was told at that time that she had very minimal pelvic floor strength. She would like PT to help improve her strength. She reports incontinence is worse first thing in the am when she gets up to void. She reports she often leaks on the way to the bathroom and has urgency. She has experienced fecal urgency as well with intermittent c/o fecal incontinence. With exam today Arianne present with vaginal atrophy and weakness of her pelvic floor muscles throughout the pelvic clock with 2/5 MMT. She has decreased endurance to sustain a pelvic floor contraction. She tends to hold her breath when attempting a pelvic floor contraction. Arianne reports having elevated blood pressure and finds she is often holding her breath. She was educated on pelvic floor contraction with adductor assist today working on endurance and she tolerated this well. Physical Therapy Plan Frequency and Duration Frequency of Treatment 1x/Week Duration of treatment (weeks) 12 Plan of Care Start Date 09/03/24 Plan of Care End Date 11/26/24 Therapeutic Interventions Therapeutic Interventions Home Exercise Program, Neuromuscular Re-education, Patient/Caregiver Education, Self-Care/Home Management, Therapeutic Exercises Modalities Biofeedback Next Visit Focus/Plan Next Note Type Treatment Note Next Visit Plan EMG biofeedback for pelvic floor strength and endurance training
--- NOTE | 2024-09-03 16:34 | PT.OPPOC ---
Physical, Occupational & Speech Therapy At [facility] Current Diagnoses Other specified urinary incontinence (09/08/24) Pelvic muscle wasting (09/08/24) Other female genital prolapse (09/08/24) Visit Care Team Role Provider Type Pasquale Del Rosario DO Primary Care Provider Non-Staff Specialty: Family Practice Address: [place], [address] Email: Bruce Varela DO Family Provider Non-Staff Specialty: Family Practice Address: [address] [place] [address], [id number] Email: Maxine Gordon MD Attending Provider Non-Staff Referring Provider Specialty: Urology Address: [address] [place] [address], [facility] Email: Plan Of Care PT-OP-B Current Condition Start: 09/03/24 08:10 Freq: Status: Active Protocol: Document 09/03/24 11:30 [facility] (Rec: 09/03/24 11:57 [facility] [id number]) Current Condition History of Current Condition Onset Date 3 years ago Current Complaints pelvic floor weakness, pelvic pressure/heaviness,urinary/ fecal incontinence History of Current Condition pt reports she has had 3 surgeries in 3 years due to pelvic organ prolapse for all 3 pelvic organs She has had a hysterectomy and a mesh sling in 2022 and then she developed a large inguinal hernia on the right side and she had a second robotic surgery to repair the hernia, and there is a [address] Then in may she went back in for surgery and had cystocele and rectocele repaired. Pat was told she has minimal pelvic floor strength. She walks a lot for exercises but if she over does it then she can feel symptoms of pelvic pressure and heaviness. She has quit lifting as she was doing a lot of gardening and this was contributing to her pelvic pressure symptoms. she has a history of 4 vaginal deliveries. She has been on miralax x 3 years and she is adding in fiber so she is having bowel movements two times a day now. She does report at times she will experience bowel urgency with leakage. She does experience urinary leakage as well and this can be worse first thing in the am as she wakes with a full bladder. Arianne reports she often isn't making it to the bathroom without leaking in the am. She drinks 2 cups of coffee and green tea as well as water throughout the day. Treatment Goals Patient/Caregiver Goals Treatment goals include decreasing pelvic pressure and heaviness, decreasing incontinence and preventing any further prolapse Current Functional Impairments (Reported) Functional Limitations- Mobility/Gait Arianne has osteopenia and is working hard at walking for exercise but she experiences increased pelvic pressure so is limited in her walking distance PT-OP-T Assessment and Plan Start: 09/03/24 08:10 Freq: Status: Active Protocol: Document 09/03/24 11:30 [facility] (Rec: 09/08/24 08:33 [facility] [id number]) Physical Therapy Assessment Rehab Potential Rehabilitation Potential Excellent Evaluation Complexity Number of Personal Factors/Comorbidities 1-2 Number of Body Systems Impaired 3 Clinical Presentation at Evaluation Stable Impairments Impairments Activity Tolerance,Functional Activities,Strength,Tone Other Impairments pelvic organ prolapse, urinary incontinence Goals 4 Impairment Pelvic pressure that increases with walking, Arianne has osteopenia and needs to be able to walk for weight bearing exercise Food Inspector Goal (LTG) Arianne reports a overall reduction of pelvic pressure with walking LTG Duration 8 weeks 3 Impairment urinary incontinence that is worse in the am Food Inspector Goal (LTG) Pat reports a overall reduction of urinary incontinence LTG Duration 8 weeks 2 Impairment Decreased pelvic floor endurance Short Term Goal (STG) Arianne is able to sustain a pelvic floor contraction in supine x 10 seconds STG Duration 4 weeks Food Inspector Goal (LTG) Arianne is able to sustain a pelvic floor contraction in sitting x 10 seconds LTG Duration 8 weeks 1 Impairment pelvic floor weakness, MMT of 2/5 throughout all martinez of the levator ani Short Term Goal (STG) Arianne is educated on pelvic floor strengthening for a HEP STG Duration 3 weeks Senior Living Goal (LTG) Arianne is able to improve pelvic floor strength by 1 muscle grade to 3/5 MMT or better LTG Duration 8 weeks Assessment Summary Assessment Arianne is a 78 year old female referred to PT with c/o urinary incontinence, prolapse , and pelvic floor weakness. Arianne has undergone multiple surgeries i n the past 3 years including hysterectomy and mesh sling in 2022. After this surgery she developed a abdominal hernia on the right side. She underwent surgical repair with mesh to fix the hernia. In May 2024 she underwent a additional cystocele and rectocele repair and she was told at that time that she had very minimal pelvic floor strength. She would like PT to help improve her strength. She reports incontinence is worse first thing in the am when she gets up to void. She reports she often leaks on the way to the bathroom and has urgency. She has experienced fecal urgency as well with intermittent c/o fecal incontinence. With exam today Pat present with vaginal atrophy and weakness of her pelvic floor muscles throughout the pelvic clock with 2/5 MMT. She has decreased endurance to sustain a pelvic floor contraction. She tends to hold her breath when attempting a pelvic floor contraction. Pat reports having elevated blood pressure and finds she is often holding her breath. She was educated on pelvic floor contraction with adductor assist today working on endurance and she tolerated this well. Physical Therapy Plan Frequency and Duration Frequency of Treatment 1x/Week Duration of treatment (weeks) 12 Plan of Care Start Date 09/03/24 Plan of Care End Date 11/26/24 Therapeutic Interventions Therapeutic Interventions Home Exercise Program, Neuromuscular Re-education, Patient/Caregiver Education, Self-Care/Home Management, Therapeutic Exercises Modalities Biofeedback Next Visit Focus/Plan Next Note Type Treatment Note Next Visit Plan EMG biofeedback for pelvic floor strength and endurance training Plan of Care Dates Plan of Care Start Date 09/03/24 Plan of Care End Date 11/26/24 Electronically Signed by: Camilla Miranda, PT 09/08/24 [id number] If you are in agreement with this Plan of Care, please return a signed and dated copy. I have reviewed this Plan of Care and certify that the skilled therapy services above are required to meet the patient?s needs. Physician Signature Date Printed Name and Credentials Clinical Instructor Signature Printed Name and Credentials
--- NOTE | 2024-09-08 16:42 | PT.OTN ---
Current Diagnoses Other specified urinary incontinence (09/08/24) Pelvic muscle wasting (09/08/24) Other female genital prolapse (09/08/24) Physical Therapy Treatment Note PT-OP-A Visit Information Start: 09/03/24 08:10 Freq: Status: Active Protocol: Document 09/08/24 08:15 [facility] (Rec: 09/08/24 16:42 [facility] [id number]) Out-Patient Physical Therapy Visit Information Visit Information Visit Type Treatment Note Visit Start Time 08:15 Visit Stop Time 09:00 Visit Number 2 Evaluation Information Evaluation Date 09/03/24 PT-OP-B Current Condition Start: 09/03/24 08:10 Freq: Status: Active Protocol: Document 09/03/24 11:30 [facility] (Rec: 09/03/24 11:57 [facility] [id number]) Current Condition History of Current Condition Onset Date 3 years ago Current Complaints pelvic floor weakness, pelvic pressure/heaviness,urinary/ fecal incontinence History of Current Condition pt reports she has had 3 surgeries in 3 years due to pelvic organ prolapse for all 3 pelvic organs She has had a hysterectomy and a mesh sling in 2022 and then she developed a large inguinal hernia on the right side and she had a second robotic surgery to repair the hernia, and there is a [address] Then in may she went back in for surgery and had cystocele and rectocele repaired. Arianne was told she has minimal pelvic floor strength. She walks a lot for exercises but if she over does it then she can feel symptoms of pelvic pressure and heaviness. She has quit lifting as she was doing a lot of gardening and this was contributing to her pelvic pressure symptoms. she has a history of 4 vaginal deliveries. She has been on miralax x 3 years and she is adding in fiber so she is having bowel movements two times a day now. She does report at times she will experience bowel urgency with leakage. She does experience urinary leakage as well and this can be worse first thing in the am as she wakes with a full bladder. Arianne reports she often isn't making it to the bathroom without leaking in the am. She drinks 2 cups of coffee and green tea as well as water throughout the day. Treatment Goals Patient/Caregiver Goals Treatment goals include decreasing pelvic pressure and heaviness, decreasing incontinence and preventing any further prolapse Current Functional Impairments (Reported) Functional Limitations- Mobility/Gait Arianne has osteopenia and is working hard at walking for exercise but she experiences increased pelvic pressure so is limited in her walking distance PT-OP-C Subjective Start: 09/03/24 08:10 Freq: Status: Active Protocol: Document 09/08/24 08:15 [facility] (Rec: 09/08/24 16:42 [facility] [id number]) OP-PT Subjective Patient Comments Patient Comments Arianne reports she has been working on the exercises She states that the leakage that bothers her happens first thing in the am when she wakes up. She will get out of bed and the need to go will hit her and she can have difficulty making it to the bathroom without leakage. PT-OP-I Pelvic Floor Start: 09/03/24 08:10 Freq: Status: Active Protocol: Document 09/03/24 11:30 [facility] (Rec: 09/08/24 12:51 [facility] [id number]) Pelvic Floor Assessment Urine Pelvic Floor Surgery Yes Urinary Symptoms Urge Sensation Other Urinary Symptoms urinary incontinence especially in the am once she wakes up, pt notes she will leak on the way to the bathroom Leakage Size Small Pelvic Clock Pelvic Clock 12-3 Atrophy Pelvic Clock 3-6 Atrophy Pelvic Clock 6-9 Atrophy Pelvic Clock 9-12 Atrophy Prolapse Cystocele Grade 2 Contraction Ability Voluntary Contraction Weak Manual Muscle Testing Left 2 Manual Muscle Testing Right 2 Manual Muscle Testing Anterior 2 Manual Muscle Testing Posterior 2 Muscle Endurance (Seconds) 4 PT-OP-Q Treatments Start: 09/03/24 08:10 Freq: Status: Active Protocol: Document 09/08/24 08:15 [facility] (Rec: 09/08/24 16:42 [facility] [id number]) Therapeutic Exercises Supine Exercises pelvic floor long holds Supine Exercise Name average contraction is 10.8 with max of 18.9 uv Side bilateral Reps/Minutes worked today on 10 sec hold and 10 sec relaxation pelvic floor relaxed awareness Supine Exercise Name pt able to get resting tone to basline Comments 3 min pelvic floor contraction with ball squeeze Supine Exercise Name average is 14.2 and max of 24. 9 uv Reps/Minutes 10 reps holding 10 seconds Self-Care/Home Management Treatment Education Patient Education Home Exercise Program Other Education pt was educated in the urge deference technique and given a HEP PT-OP-T Assessment and Plan Start: 09/03/24 08:10 Freq: Status: Active Protocol: Document 09/08/24 08:15 [facility] (Rec: 09/08/24 16:42 [facility] [id number]) Physical Therapy Assessment Goals 4 Impairment Pelvic pressure that increases with walking, Pat has osteopenia and needs to be able to walk for weight bearing exercise Alf Goal (LTG) Pat reports a overall reduction of pelvic pressure with walking LTG Duration 8 weeks 3 Impairment urinary incontinence that is worse in the am Alf Goal (LTG) Pat reports a overall reduction of urinary incontinence LTG Duration 8 weeks 2 Impairment Decreased pelvic floor endurance Short Term Goal (STG) Pat is able to sustain a pelvic floor contraction in supine x 10 seconds STG Duration 4 weeks Alf Goal (LTG) Pat is able to sustain a pelvic floor contraction in sitting x 10 seconds LTG Duration 8 weeks 1 Impairment pelvic floor weakness, MMT of 2/5 throughout all martinez of the levator ani Short Term Goal (STG) Pat is educated on pelvic floor strengthening for a HEP STG Duration 3 weeks Alf Goal (LTG) Pat is able to improve pelvic floor strength by 1 muscle grade to 3/5 MMT or better LTG Duration 8 weeks Assessment Summary Assessment EMG biofeedback was initiated today and Pat tolerated this well. I was able to increase her to 10 sec hold time in supine. She does have a better pelvic floor hold with adductor assist. She was educated in the urge deference technique for her bladder leakage first thing in the am. Physical Therapy Plan Frequency and Duration Frequency of Treatment 1x/Week Duration of treatment (weeks) 12 Plan of Care Start Date 09/03/24 Plan of Care End Date 11/26/24 Therapeutic Interventions Therapeutic Interventions Home Exercise Program, Neuromuscular Re-education, Patient/Caregiver Education, Self-Care/Home Management, Therapeutic Exercises Modalities Biofeedback Next Visit Focus/Plan Next Note Type Treatment Note Next Visit Plan pt to bring in bladder diary, review urge deference technique, continue progressing strength and add in hooklying hip abduction next visit
--- NOTE | 2024-09-24 08:55 | PT.OTN ---
Current Diagnoses Other specified urinary incontinence (09/24/24) Pelvic muscle wasting (09/24/24) Other female genital prolapse (09/24/24) Physical Therapy Treatment Note PT-OP-A Visit Information Start: 09/03/24 08:10 Freq: Status: Active Protocol: Document 09/24/24 08:10 SP (Rec: 09/24/24 10:19 SP [id number]) Out-Patient Physical Therapy Visit Information Visit Information Visit Type Treatment Note Visit Note FRANCOIS Shanks observed tx with permission of pt while tx provided by NAVID Silvestre. Visit Start Time 08:10 Visit Stop Time 08:55 Visit Number 3 Number of AQUATIC PERFORMER Visits 1 Evaluation Information Evaluation Date 09/03/24 PT-OP-B Current Condition Start: 09/03/24 08:10 Freq: Status: Active Protocol: Document 09/03/24 11:30 [facility] (Rec: 09/03/24 11:57 [facility] [id number]) Current Condition History of Current Condition Onset Date 3 years ago Current Complaints pelvic floor weakness, pelvic pressure/heaviness,urinary/ fecal incontinence History of Current Condition pt reports she has had 3 surgeries in 3 years due to pelvic organ prolapse for all 3 pelvic organs She has had a hysterectomy and a mesh sling in 2022 and then she developed a large inguinal hernia on the right side and she had a second robotic surgery to repair the hernia, and there is a [address] Then in may she went back in for surgery and had cystocele and rectocele repaired. Pat was told she has minimal pelvic floor strength. She walks a lot for exercises but if she over does it then she can feel symptoms of pelvic pressure and heaviness. She has quit lifting as she was doing a lot of gardening and this was contributing to her pelvic pressure symptoms. she has a history of 4 vaginal deliveries. She has been on miralax x 3 years and she is adding in fiber so she is having bowel movements two times a day now. She does report at times she will experience bowel urgency with leakage. She does experience urinary leakage as well and this can be worse first thing in the am as she wakes with a full bladder. Pat reports she often isn't making it to the bathroom without leaking in the am. She drinks 2 cups of coffee and green tea as well as water throughout the day. Treatment Goals Patient/Caregiver Goals Treatment goals include decreasing pelvic pressure and heaviness, decreasing incontinence and preventing any further prolapse Current Functional Impairments (Reported) Functional Limitations- Mobility/Gait Arianne has osteopenia and is working hard at walking for exercise but she experiences increased pelvic pressure so is limited in her walking distance PT-OP-C Subjective Start: 09/03/24 08:10 Freq: Status: Active Protocol: Document 09/24/24 08:10 SP (Rec: 09/24/24 10:19 SP [id number]) OP-PT Subjective Patient Comments Patient Comments Pt reports is seeing a decreased in times needed to go to the bathroom from 3 to 2x/night now. She feels her PF strength is getting stronger, able to feel engagement in anterior portion, closer to pubic bone. She states still a challenge holding PF and feels like may leak when goes to sit down, she reaches down to give manual pressure support. Is still having little leakage when has urge and trying to get to bathroom quick. She does take Miralax for more loose BM and does abdominal massage motioning U directioning to support easier bowel movement. PT-OP-I Pelvic Floor Start: 09/03/24 08:10 Freq: Status: Active Protocol: Document 09/03/24 11:30 [facility] (Rec: 09/08/24 12:51 [facility] [id number]) Pelvic Floor Assessment Urine Pelvic Floor Surgery Yes Urinary Symptoms Urge Sensation Other Urinary Symptoms urinary incontinence especially in the am once she wakes up, pt notes she will leak on the way to the bathroom Leakage Size Small Pelvic Clock Pelvic Clock 12-3 Atrophy Pelvic Clock 3-6 Atrophy Pelvic Clock 6-9 Atrophy Pelvic Clock 9-12 Atrophy Prolapse Cystocele Grade 2 Contraction Ability Voluntary Contraction Weak Manual Muscle Testing Left 2 Manual Muscle Testing Right 2 Manual Muscle Testing Anterior 2 Manual Muscle Testing Posterior 2 Muscle Endurance (Seconds) 4 PT-OP-Q Treatments Start: 09/03/24 08:10 Freq: Status: Active Protocol: Document 09/24/24 08:10 SP (Rec: 09/24/24 10:19 SP [id number]) Therapeutic Exercises Supine Exercises Pelvic Floor Clamshell Supine Exercise Name added to HEP with HO Side bilateral Reps/Minutes 10 reps each side alternating Comments cued slow knee out to side with level/still pelvis /c PF gentle draw in Pelvic floor quick flicks Supine Exercise Name average is 8.5 and Max of 15uv , avg rest 6.8 lowest 0.1 Reps/Minutes 5 hold, 5sec rest x10 reps Comments initiated during tx to support bladder urge technique pelvic floor long holds Supine Exercise Name average contraction is 11.9 with max of 33.9 uv Side bilateral Reps/Minutes worked today on 10 sec hold and 10 sec relaxation avg 2.8 lowest 0.1 Comments reports goal breathing 8 is getting about 6 before needs to inha pelvic floor relaxed awareness Supine Exercise Name pt able to get resting tone to basline Reps/Minutes 2 min Comments 2.8> 0.1 uv during ther ex pelvic floor contraction with ball squeeze Supine Exercise Name average is 14.6 and max of 24. 7 uv, rest avg 4.6 lowest 0.1 Sitting Exercises TA Stand to Sit Sitting Exercise Name Verbal discussion- review next tx Comments education quick flicks then gentle TA draw in prior sitting for PF support Manual Therapy Treatment Consent Patient gave verbal consent for manual Yes treatment Manual Techniques ILU Massage Type added to HEP with HO Reps/Duration 3 min Comments manual and instruction on self application, reports has always just did the U massage to decrease constipation and helpful, demonstrates little circles in U massage, improved self return demonstration post manual I, L, U then all Us rest of reps. Self-Care/Home Management Treatment Education Patient Education Body Mechanics,Home Exercise Program Other Education -Reviewed urge deference technique with continued education to stop and perform quick flicks until urinary urge goes away then proceed to the bathroom for pelvic floor strengthening and muscular reeducation. -Discussed bladder diary (did not bring today, is continuing to log for data for 2-3 weeks for more self and PT feedback ) until see next tx. She reports is seeing decrease need to go to bathroom from 3 to 2 x per night and trying to intake 60 oz of fluids. Initiated discussion on bladder irritants and drinking water before intake of water before those irritants can improve decrease urge feeling little longer. Instructed ILU Massage PT-OP-T Assessment and Plan Start: 09/03/24 08:10 Freq: Status: Active Protocol: Document 09/24/24 08:10 SP (Rec: 09/24/24 10:19 SP [id number]) Physical Therapy Assessment Goals 4 Impairment Pelvic pressure that increases with walking, Pat has osteopenia and needs to be able to walk for weight bearing exercise Atmospheric Physics Professor Goal (LTG) Pat reports a overall reduction of pelvic pressure with walking LTG Duration 8 weeks 3 Impairment urinary incontinence that is worse in the am Residential Goal (LTG) Pat reports a overall reduction of urinary incontinence LTG Duration 8 weeks 2 Impairment Decreased pelvic floor endurance Short Term Goal (STG) Pat is able to sustain a pelvic floor contraction in supine x 10 seconds STG Duration 4 weeks Residential Goal (LTG) Pat is able to sustain a pelvic floor contraction in sitting x 10 seconds LTG Duration 8 weeks 1 Impairment pelvic floor weakness, MMT of 2/5 throughout all martinez of the levator ani Short Term Goal (STG) Pat is educated on pelvic floor strengthening for a HEP STG Duration 3 weeks Atmospheric Physics Professor Goal (LTG) Pat is able to improve pelvic floor strength by 1 muscle grade to 3/5 MMT or better LTG Duration 8 weeks Assessment Summary Assessment Pt progressed very well with pelvic floor contraction holds today with significant gains and pt self feedback can feel more anterior pelvic floor engagement. She does very well with pelvic floor return to relaxed awareness, progressed added quick flick today for support for urge technique carryover when needed. Cues for pelvic positioning with slower pacing clamshell AROM today in hooklying to HEP with HO provided. Reviewed ILU Massage she stated performs, updated cuing for I L first before U to allow clockwise improved ease of clockwise bowel locomotion with good feedback response from patient . Physical Therapy Plan Frequency and Duration Frequency of Treatment 1x/Week Duration of treatment (weeks) 12 Plan of Care Start Date 09/03/24 Plan of Care End Date 11/26/24 Therapeutic Interventions Therapeutic Interventions Home Exercise Program, Neuromuscular Re-education, Patient/Caregiver Education, Self-Care/Home Management, Therapeutic Exercises Modalities Biofeedback Next Visit Focus/Plan Next Note Type Treatment Note Next Visit Plan Next tx: go over bladder diary 2-3 weeks (prefers more data before sees PT and finds good self feedback), review urge deference technique PRN, ILU massage, hooklying clamshell, POC: continue progressing strength, check if ready add resistance to hooklying hip abduction vs sidelying next visit. Pt requested would like when feels has progressed well enough to standing contractions with feedback awareness for self.
--- NOTE | 2024-09-29 16:45 | PT.OTN ---
Current Diagnoses Other specified urinary incontinence (09/29/24) Pelvic muscle wasting (09/29/24) Other female genital prolapse (09/29/24) Physical Therapy Treatment Note PT-OP-A Visit Information Start: 09/03/24 08:10 Freq: Status: Active Protocol: Document 09/29/24 11:18 [facility] (Rec: 09/29/24 12:24 [facility] [id number]) Out-Patient Physical Therapy Visit Information Visit Information Visit Type Treatment Note Visit Note 50 min Visit Start Time 11:25 Visit Stop Time 12:15 Visit Number 4 Number of BAG HANGER Visits 0 Evaluation Information Evaluation Date 09/03/24 PT-OP-B Current Condition Start: 09/03/24 08:10 Freq: Status: Active Protocol: Document 09/03/24 11:30 [facility] (Rec: 09/03/24 11:57 [facility] [id number]) Current Condition History of Current Condition Onset Date 3 years ago Current Complaints pelvic floor weakness, pelvic pressure/heaviness, urinary/fecal incontinence History of Current pt reports she has had 3 surgeries in 3 years due to Condition pelvic organ prolapse for all 3 pelvic organs She has had a hysterectomy and a mesh sling in 2022 and then she developed a large inguinal hernia on the right side and she had a second robotic surgery to repair the hernia, and there is a [address] Then in may she went back in for surgery and had cystocele and rectocele repaired. Arianne was told she has minimal pelvic floor strength. She walks a lot for exercises but if she over does it then she can feel symptoms of pelvic pressure and heaviness. She has quit lifting as she was doing a lot of gardening and this was contributing to her pelvic pressure symptoms. she has a history of 4 vaginal deliveries. She has been on miralax x 3 years and she is adding in fiber so she is having bowel movements two times a day now. She does report at times she will experience bowel urgency with leakage. She does experience urinary leakage as well and this can be worse first thing in the am as she wakes with a full bladder. Arianne reports she often isn't making it to the bathroom without leaking in the am. She drinks 2 cups of coffee and green tea as well as water throughout the day. Treatment Goals Patient/Caregiver Treatment goals include decreasing pelvic pressure and Goals heaviness, decreasing incontinence and preventing any further prolapse Current Functional Impairments (Reported) Functional Pat has osteopenia and is working hard at walking for Limitations- exercise but she experiences increased pelvic pressure Mobility/Gait so is limited in her walking distance PT-OP-C Subjective Start: 09/03/24 08:10 Freq: Status: Active Protocol: Document 09/29/24 11:18 [facility] (Rec: 09/29/24 12:24 [facility] [id number]) OP-PT Subjective Patient Comments Patient Comments pt brings in her bladder diary and she notes she uses the bathroom every out, she is working on the urge deference technique. Her average at night is 2 times per night now verses the 3 it was She has a couple hours a before she feels the prolapse PT-OP-I Pelvic Floor Start: 09/03/24 08:10 Freq: Status: Active Protocol: Document 09/03/24 11:30 [facility] (Rec: 09/08/24 12:51 [facility] [id number]) Pelvic Floor Assessment Urine Pelvic Floor Surgery Yes Urinary Symptoms Urge Sensation Other Urinary urinary incontinence especially in the am once she Symptoms wakes up, pt notes she will leak on the way to the bathroom Leakage Size Small Pelvic Clock Pelvic Clock 12-3 Atrophy Pelvic Clock 3-6 Atrophy Pelvic Clock 6-9 Atrophy Pelvic Clock 9-12 Atrophy Prolapse Cystocele Grade 2 Contraction Ability Voluntary Weak Contraction Manual Muscle 2 Testing Left Manual Muscle 2 Testing Right Manual Muscle 2 Testing Anterior Manual Muscle 2 Testing Posterior Muscle Endurance ( 4 Seconds) PT-OP-Q Treatments Start: 09/03/24 08:10 Freq: Status: Active Protocol: Document 09/29/24 11:18 [facility] (Rec: 09/29/24 12:24 [facility] [id number]) Therapeutic Exercises Supine Exercises Pelvic Floor Clamshell Supine Exercise Name hooklying hip abduction with theraband Side bilateral Reps/Minutes 2 x 10 reps holding 5 seconds Comments level 3 TB pelvic floor long holds Supine Exercise Name 10.6 and 17.9 max Side bilateral Reps/Minutes worked today on 10 sec hold and 10 sec relaxation avg 2 .8 lowest 0.1 pelvic floor relaxed awareness Supine Exercise Name pt able to get resting tone to basline pelvic floor contraction with ball squeeze Supine Exercise Name average 14.5 and max of 27 Reps/Minutes 10 reps holding 10 seconds PT-OP-T Assessment and Plan Start: 09/03/24 08:10 Freq: Status: Active Protocol: Document 09/29/24 16:40 [facility] (Rec: 09/29/24 16:45 [facility] [id number]) Physical Therapy Assessment Goals 4 Impairment Pelvic pressure that increases with walking, Pat has osteopenia and needs to be able to walk for weight bearing exercise Bus Washer Goal (LTG) Pat reports a overall reduction of pelvic pressure with walking LTG Duration 8 weeks 3 Impairment urinary incontinence that is worse in the am Bus Washer Goal (LTG) Pat reports a overall reduction of urinary incontinence LTG Duration 8 weeks 2 Impairment Decreased pelvic floor endurance Short Term Goal (STG Pat is able to sustain a pelvic floor contraction in ) supine x 10 seconds STG Duration 4 weeks Bus Washer Goal (LTG) Pat is able to sustain a pelvic floor contraction in sitting x 10 seconds LTG Duration 8 weeks 1 Impairment pelvic floor weakness, MMT of 2/5 throughout all martinez of the levator ani Short Term Goal (STG Pat is educated on pelvic floor strengthening for a HEP ) STG Duration 3 weeks Bus Washer Goal (LTG) Pat is able to improve pelvic floor strength by 1 muscle grade to 3/5 MMT or better LTG Duration 8 weeks Assessment Summary Assessment Time was spent today educating Pat that it is good to get off her feet for at least 10-15 min during the day and rest to decompress the pelvis and pelvic organs. She reports that most of her day she does not sit so it is hard for her to rest. She is tolerating her exercises well, breathing is still a challenge as she holds her breath however she is doing better with this and can hold longer without the breath hold. We worked on exhale with pelvic floor recruitment. I also progressed her to hooklying abduction with theraband resistance and she tolerated this well Physical Therapy Plan Frequency and Duration Frequency of 1x/Week Treatment Duration of 12 treatment (weeks) Plan of Care Start 09/03/24 Date Plan of Care End 11/26/24 Date Therapeutic Interventions Therapeutic Home Exercise Program,Neuromuscular Re-education, Interventions Patient/Caregiver Education,Self-Care/Home Management, Therapeutic Exercises Modalities Biofeedback Next Visit Focus/Plan Next Note Type Treatment Note Next Visit Plan continue to progress endurance, trial of wedge under the pelvis next visit for pelvic decompression and educate pt on happy baby and alex pose stretches
--- NOTE | 2024-10-06 17:10 | PT.OTN ---
Current Diagnoses Other specified urinary incontinence (10/06/24) Pelvic muscle wasting (10/06/24) Other female genital prolapse (10/06/24) Physical Therapy Treatment Note PT-OP-A Visit Information Start: 09/03/24 08:10 Freq: Status: Active Protocol: Document 10/06/24 11:34 [facility] (Rec: 10/06/24 12:21 [facility] [id number]) Out-Patient Physical Therapy Visit Information Visit Information Visit Type Treatment Note Visit Start Time 11:30 Visit Stop Time 12:15 Visit Number 5 PT-OP-B Current Condition Start: 09/03/24 08:10 Freq: Status: Active Protocol: Document 09/03/24 11:30 [facility] (Rec: 09/03/24 11:57 [facility] [id number]) Current Condition History of Current Condition Onset Date 3 years ago Current Complaints pelvic floor weakness, pelvic pressure/heaviness, urinary/fecal incontinence History of Current pt reports she has had 3 surgeries in 3 years due to Condition pelvic organ prolapse for all 3 pelvic organs She has had a hysterectomy and a mesh sling in 2022 and then she developed a large inguinal hernia on the right side and she had a second robotic surgery to repair the hernia, and there is a [address] Then in may she went back in for surgery and had cystocele and rectocele repaired. Arianne was told she has minimal pelvic floor strength. She walks a lot for exercises but if she over does it then she can feel symptoms of pelvic pressure and heaviness. She has quit lifting as she was doing a lot of gardening and this was contributing to her pelvic pressure symptoms. she has a history of 4 vaginal deliveries. She has been on miralax x 3 years and she is adding in fiber so she is having bowel movements two times a day now. She does report at times she will experience bowel urgency with leakage. She does experience urinary leakage as well and this can be worse first thing in the am as she wakes with a full bladder. Arianne reports she often isn't making it to the bathroom without leaking in the am. She drinks 2 cups of coffee and green tea as well as water throughout the day. Treatment Goals Patient/Caregiver Treatment goals include decreasing pelvic pressure and Goals heaviness, decreasing incontinence and preventing any further prolapse Current Functional Impairments (Reported) Functional Pat has osteopenia and is working hard at walking for Limitations- exercise but she experiences increased pelvic pressure Mobility/Gait so is limited in her walking distance PT-OP-C Subjective Start: 09/03/24 08:10 Freq: Status: Active Protocol: Document 10/06/24 11:34 [facility] (Rec: 10/06/24 12:21 [facility] [id number]) OP-PT Subjective Patient Comments Patient Comments she feels like she is doing a little better she isn't noting leaking with walking she still feels the pelvic pressure but its more towards the end of the day Patient Reported Improving Progress PT-OP-I Pelvic Floor Start: 09/03/24 08:10 Freq: Status: Active Protocol: Document 09/03/24 11:30 [facility] (Rec: 09/08/24 12:51 [facility] [id number]) Pelvic Floor Assessment Urine Pelvic Floor Surgery Yes Urinary Symptoms Urge Sensation Other Urinary urinary incontinence especially in the am once she Symptoms wakes up, pt notes she will leak on the way to the bathroom Leakage Size Small Pelvic Clock Pelvic Clock 12-3 Atrophy Pelvic Clock 3-6 Atrophy Pelvic Clock 6-9 Atrophy Pelvic Clock 9-12 Atrophy Prolapse Cystocele Grade 2 Contraction Ability Voluntary Weak Contraction Manual Muscle 2 Testing Left Manual Muscle 2 Testing Right Manual Muscle 2 Testing Anterior Manual Muscle 2 Testing Posterior Muscle Endurance ( 4 Seconds) PT-OP-Q Treatments Start: 09/03/24 08:10 Freq: Status: Active Protocol: Document 10/06/24 11:34 [facility] (Rec: 10/06/24 12:21 [facility] [id number]) Therapeutic Exercises Supine Exercises Pelvic floor quick flicks Reps/Minutes x 10 reps pelvic floor long holds Supine Exercise Name able to relax to baseline inbetween contractions Reps/Minutes worked today on 10 sec hold and 10 sec relaxation avg 2 .8 lowest 0.1 Comments 15 average and max of 24.8 uv pelvic floor relaxed awareness Supine Exercise Name pt able to get resting tone to basline pelvic floor contraction with ball squeeze Supine Exercise Name 17.6 and max of 32.5 Reps/Minutes 10 reps holding 10 seconds Self-Care/Home Management Treatment Education Patient Education Home Exercise Program Other Education urge deference technique reviewed and pt was encouraged to give her pelvis a rest during the day 15-20 min mid day if she can PT-OP-T Assessment and Plan Start: 09/03/24 08:10 Freq: Status: Active Protocol: Document 10/06/24 11:34 [facility] (Rec: 10/06/24 12:21 [facility] [id number]) Physical Therapy Assessment Assessment Summary Assessment Strength is improved today with emg biofeedback for endurance of the pelvic floor, I did encourage Pat to take time during the day to rest her pelvis as she tends to push through when she is fatigued. She is still feeling the pelvic pressure is worse at the end of the day. Physical Therapy Plan Frequency and Duration Frequency of 1x/Week Treatment Duration of 12 treatment (weeks) Plan of Care Start 09/03/24 Date Plan of Care End 11/26/24 Date Therapeutic Interventions Therapeutic Home Exercise Program,Neuromuscular Re-education, Interventions Patient/Caregiver Education,Self-Care/Home Management, Therapeutic Exercises Modalities Biofeedback Next Visit Focus/Plan Next Note Type Treatment Note Next Visit Plan continue with pelvic floor endurance training, templates for eccentric control and coordination, pelvic decompression, add in bridges next visit and happy baby for pelvic floor stretching
--- NOTE | 2024-10-13 13:31 | PT.OTN ---
Current Diagnoses Other specified urinary incontinence (10/13/24) Pelvic muscle wasting (10/13/24) Other female genital prolapse (10/13/24) Physical Therapy Treatment Note PT-OP-A Visit Information Start: 09/03/24 08:10 Freq: Status: Active Protocol: Document 10/13/24 11:31 [facility] (Rec: 10/13/24 12:29 [facility] [id number]) Out-Patient Physical Therapy Visit Information Visit Information Visit Type Treatment Note Visit Start Time 11:30 Visit Stop Time 12:15 Visit Number 6 Evaluation Information Evaluation Date 09/03/24 PT-OP-B Current Condition Start: 09/03/24 08:10 Freq: Status: Active Protocol: Document 09/03/24 11:30 [facility] (Rec: 09/03/24 11:57 [facility] [id number]) Current Condition History of Current Condition Onset Date 3 years ago Current Complaints pelvic floor weakness, pelvic pressure/heaviness, urinary/fecal incontinence History of Current pt reports she has had 3 surgeries in 3 years due to Condition pelvic organ prolapse for all 3 pelvic organs She has had a hysterectomy and a mesh sling in 2022 and then she developed a large inguinal hernia on the right side and she had a second robotic surgery to repair the hernia, and there is a [address] Then in may she went back in for surgery and had cystocele and rectocele repaired. Arianne was told she has minimal pelvic floor strength. She walks a lot for exercises but if she over does it then she can feel symptoms of pelvic pressure and heaviness. She has quit lifting as she was doing a lot of gardening and this was contributing to her pelvic pressure symptoms. she has a history of 4 vaginal deliveries. She has been on miralax x 3 years and she is adding in fiber so she is having bowel movements two times a day now. She does report at times she will experience bowel urgency with leakage. She does experience urinary leakage as well and this can be worse first thing in the am as she wakes with a full bladder. Arianne reports she often isn't making it to the bathroom without leaking in the am. She drinks 2 cups of coffee and green tea as well as water throughout the day. Treatment Goals Patient/Caregiver Treatment goals include decreasing pelvic pressure and Goals heaviness, decreasing incontinence and preventing any further prolapse Current Functional Impairments (Reported) Functional Pat has osteopenia and is working hard at walking for Limitations- exercise but she experiences increased pelvic pressure Mobility/Gait so is limited in her walking distance PT-OP-C Subjective Start: 09/03/24 08:10 Freq: Status: Active Protocol: Document 10/13/24 11:31 [facility] (Rec: 10/13/24 12:29 [facility] [id number]) OP-PT Subjective Patient Comments Patient Comments pt notes she is tired today as she feels like she came down with something this past week. Pat notes her has his appt for fusion surgery November 03. She has 2 more PT visits she is able to make before that time. Pat notes she can now push her prolapse back up now where as she wasn't before. PT-OP-I Pelvic Floor Start: 09/03/24 08:10 Freq: Status: Active Protocol: Document 09/03/24 11:30 [facility] (Rec: 09/08/24 12:51 [facility] [id number]) Pelvic Floor Assessment Urine Pelvic Floor Surgery Yes Urinary Symptoms Urge Sensation Other Urinary urinary incontinence especially in the am once she Symptoms wakes up, pt notes she will leak on the way to the bathroom Leakage Size Small Pelvic Clock Pelvic Clock 12-3 Atrophy Pelvic Clock 3-6 Atrophy Pelvic Clock 6-9 Atrophy Pelvic Clock 9-12 Atrophy Prolapse Cystocele Grade 2 Contraction Ability Voluntary Weak Contraction Manual Muscle 2 Testing Left Manual Muscle 2 Testing Right Manual Muscle 2 Testing Anterior Manual Muscle 2 Testing Posterior Muscle Endurance ( 4 Seconds) PT-OP-Q Treatments Start: 09/03/24 08:10 Freq: Status: Active Protocol: Document 10/13/24 11:31 [facility] (Rec: 10/13/24 12:29 [facility] [id number]) Therapeutic Exercises Supine Exercises bridges with pelvic floor engagement and ball squeeze Reps/Minutes 10 reps Pelvic Floor Clamshell Supine Exercise Name hooklying hip abduction with theraband Side bilateral Reps/Minutes 2 x 10 reps holding 5 seconds Comments level 3 TB pelvic floor long holds Reps/Minutes worked today on 10 sec hold and 10 sec relaxation avg 2 .8 lowest 0.1 Comments 16.3 and max 29.0 pelvic floor relaxed awareness Supine Exercise Name pt able to get resting tone to basline pelvic floor contraction with ball squeeze Supine Exercise Name average 14.6 and 25.8 Reps/Minutes 10 reps holding 10 seconds Self-Care/Home Management Treatment Education Patient Education Body Mechanics Other Education discussed using a gait belt with her when he comes home from lumbar fusion surgery. Due to his feet being numb he has taken a fall and is a fall risk. We discussed options for Arianne with a possible stay at rehab after surgery for her to gain strength prior to returning home. Due to her prolapse any heavy lifting may set her back with her healing. PT-OP-T Assessment and Plan Start: 09/03/24 08:10 Freq: Status: Active Protocol: Document 10/13/24 11:31 [facility] (Rec: 10/13/24 12:29 [facility] [id number]) Physical Therapy Assessment Goals 4 Impairment Pelvic pressure that increases with walking, rAianne has osteopenia and needs to be able to walk for weight bearing exercise Retirement Goal (LTG) Pat reports a overall reduction of pelvic pressure with walking LTG Duration 8 weeks 3 Impairment urinary incontinence that is worse in the am Retirement Goal (LTG) Pat reports a overall reduction of urinary incontinence LTG Duration 8 weeks 2 Impairment Decreased pelvic floor endurance Short Term Goal (STG Pat is able to sustain a pelvic floor contraction in ) supine x 10 seconds STG Duration 4 weeks Retirement Goal (LTG) Pat is able to sustain a pelvic floor contraction in sitting x 10 seconds LTG Duration 8 weeks 1 Impairment pelvic floor weakness, MMT of 2/5 throughout all martinez of the levator ani Short Term Goal (STG Pat is educated on pelvic floor strengthening for a HEP ) STG Duration 3 weeks Lye Machine Operator Goal (LTG) Pat is able to improve pelvic floor strength by 1 muscle grade to 3/5 MMT or better LTG Duration 8 weeks Assessment Summary Assessment Arianne continues to show good progress with improved strength of the pelvic floor. She is concerned about helping her after his lumbar surgery and we did talk today about short term rehab options for him so that she isn't having to strain to help him in those first few weeks after surgery. Physical Therapy Plan Frequency and Duration Frequency of 1x/Week Treatment Duration of 12 treatment (weeks) Plan of Care Start 09/03/24 Date Plan of Care End 11/26/24 Date Therapeutic Interventions Therapeutic Home Exercise Program,Neuromuscular Re-education, Interventions Patient/Caregiver Education,Self-Care/Home Management, Therapeutic Exercises Modalities Biofeedback Next Visit Focus/Plan Next Note Type Treatment Note Next Visit Plan review bridges next visit, continue with pelvic floor endurance training, templates for eccentric control and pelvic decompression, add in happy baby as only bridges were given today
--- NOTE | 2024-10-21 12:27 | PT.OTN ---
Current Diagnoses Other specified urinary incontinence (10/21/24) Pelvic muscle wasting (10/21/24) Other female genital prolapse (10/21/24) Physical Therapy Treatment Note PT-OP-A Visit Information Start: 09/03/24 08:10 Freq: Status: Active Protocol: Document 10/21/24 12:23 [facility] (Rec: 10/21/24 12:27 [facility] [id number]) Out-Patient Physical Therapy Visit Information Visit Information Visit Type Treatment Note Visit Start Time 09:45 Visit Stop Time 10:30 Visit Number 7 Evaluation Information Evaluation Date 09/03/24 PT-OP-B Current Condition Start: 09/03/24 08:10 Freq: Status: Active Protocol: Document 09/03/24 11:30 [facility] (Rec: 09/03/24 11:57 [facility] [id number]) Current Condition History of Current Condition Onset Date 3 years ago Current Complaints pelvic floor weakness, pelvic pressure/heaviness, urinary/fecal incontinence History of Current pt reports she has had 3 surgeries in 3 years due to Condition pelvic organ prolapse for all 3 pelvic organs She has had a hysterectomy and a mesh sling in 2022 and then she developed a large inguinal hernia on the right side and she had a second robotic surgery to repair the hernia, and there is a [address] Then in may she went back in for surgery and had cystocele and rectocele repaired. Arianne was told she has minimal pelvic floor strength. She walks a lot for exercises but if she over does it then she can feel symptoms of pelvic pressure and heaviness. She has quit lifting as she was doing a lot of gardening and this was contributing to her pelvic pressure symptoms. she has a history of 4 vaginal deliveries. She has been on miralax x 3 years and she is adding in fiber so she is having bowel movements two times a day now. She does report at times she will experience bowel urgency with leakage. She does experience urinary leakage as well and this can be worse first thing in the am as she wakes with a full bladder. Arianne reports she often isn't making it to the bathroom without leaking in the am. She drinks 2 cups of coffee and green tea as well as water throughout the day. Treatment Goals Patient/Caregiver Treatment goals include decreasing pelvic pressure and Goals heaviness, decreasing incontinence and preventing any further prolapse Current Functional Impairments (Reported) Functional Pat has osteopenia and is working hard at walking for Limitations- exercise but she experiences increased pelvic pressure Mobility/Gait so is limited in her walking distance PT-OP-C Subjective Start: 09/03/24 08:10 Freq: Status: Active Protocol: Document 10/21/24 09:51 [facility] (Rec: 10/21/24 10:44 [facility] [id number]) OP-PT Subjective Patient Comments Patient Comments pt reports she is exhausted but she trying to put her feet up and rest too. PT-OP-I Pelvic Floor Start: 09/03/24 08:10 Freq: Status: Active Protocol: Document 09/03/24 11:30 [facility] (Rec: 09/08/24 12:51 [facility] [id number]) Pelvic Floor Assessment Urine Pelvic Floor Surgery Yes Urinary Symptoms Urge Sensation Other Urinary urinary incontinence especially in the am once she Symptoms wakes up, pt notes she will leak on the way to the bathroom Leakage Size Small Pelvic Clock Pelvic Clock 12-3 Atrophy Pelvic Clock 3-6 Atrophy Pelvic Clock 6-9 Atrophy Pelvic Clock 9-12 Atrophy Prolapse Cystocele Grade 2 Contraction Ability Voluntary Weak Contraction Manual Muscle 2 Testing Left Manual Muscle 2 Testing Right Manual Muscle 2 Testing Anterior Manual Muscle 2 Testing Posterior Muscle Endurance ( 4 Seconds) PT-OP-Q Treatments Start: 09/03/24 08:10 Freq: Status: Active Protocol: Document 10/21/24 09:51 [facility] (Rec: 10/21/24 10:44 [facility] [id number]) Therapeutic Exercises Supine Exercises piriformis stretch Reps/Minutes hold 1-2 min [happy baby Reps/Minutes hold 1-2 min bridges with pelvic floor engagement and ball squeeze Reps/Minutes 10 reps pelvic floor long holds Supine Exercise Name able to relax to baseline inbetween contractions Reps/Minutes worked today on 10 sec hold and 10 sec relaxation avg 2 .8 lowest 0.1 Comments 11.7 and 30.4 uv pelvic floor relaxed awareness Supine Exercise Name pt able to get resting tone to basline pelvic floor contraction with ball squeeze Reps/Minutes 10 reps holding 10 seconds PT-OP-T Assessment and Plan Start: 09/03/24 08:10 Freq: Status: Active Protocol: Document 10/21/24 12:23 [facility] (Rec: 10/21/24 12:27 [facility] [id number]) Physical Therapy Assessment Goals 4 Impairment Pelvic pressure that increases with walking, Pat has osteopenia and needs to be able to walk for weight bearing exercise Snf Goal (LTG) Pat reports a overall reduction of pelvic pressure with walking LTG Duration 8 weeks 3 Impairment urinary incontinence that is worse in the am Snf Goal (LTG) Pat reports a overall reduction of urinary incontinence LTG Duration 8 weeks 2 Impairment Decreased pelvic floor endurance Short Term Goal (STG Pat is able to sustain a pelvic floor contraction in ) supine x 10 seconds STG Duration 4 weeks Snf Goal (LTG) Pat is able to sustain a pelvic floor contraction in sitting x 10 seconds LTG Duration 8 weeks 1 Impairment pelvic floor weakness, MMT of 2/5 throughout all martinez of the levator ani Short Term Goal (STG Pat is educated on pelvic floor strengthening for a HEP ) STG Duration 3 weeks Cake Icer Goal (LTG) Pat is able to improve pelvic floor strength by 1 muscle grade to 3/5 MMT or better LTG Duration 8 weeks Assessment Summary Assessment Arianne was shown a couple of stretches for her hips and she tolerated these well. She continues to work hard throughout her day and I have encouraged her to take rest breaks to rest her pelvic floor. She has one visit left prior to her having spinal fusion surgery. Review all exercises next visit Physical Therapy Plan Frequency and Duration Frequency of 1x/Week Treatment Duration of 12 treatment (weeks) Plan of Care Start 09/03/24 Date Plan of Care End 11/26/24 Date Therapeutic Interventions Therapeutic Home Exercise Program,Neuromuscular Re-education, Interventions Patient/Caregiver Education,Self-Care/Home Management, Therapeutic Exercises Modalities Biofeedback Next Visit Focus/Plan Next Note Type Treatment Note Next Visit Plan review all exercises next visit as this will be Arianne's last scheduled PT visit
--- NOTE | 2024-10-29 17:43 | PT.OTN ---
Current Diagnoses Other specified urinary incontinence (10/29/24) Pelvic muscle wasting (10/29/24) Other female genital prolapse (10/29/24) Physical Therapy Treatment Note PT-OP-A Visit Information Start: 09/03/24 08:10 Freq: Status: Active Protocol: Document 10/29/24 10:44 [facility] (Rec: 10/29/24 11:30 [facility] [id number]) Out-Patient Physical Therapy Visit Information Visit Information Visit Type Progress Note Visit Start Time 10:45 Visit Stop Time 11:30 Visit Number 8 Evaluation Information Evaluation Date 09/03/24 PT-OP-B Current Condition Start: 09/03/24 08:10 Freq: Status: Active Protocol: Document 09/03/24 11:30 [facility] (Rec: 09/03/24 11:57 [facility] [id number]) Current Condition History of Current Condition Onset Date 3 years ago Current Complaints pelvic floor weakness, pelvic pressure/heaviness, urinary/fecal incontinence History of Current pt reports she has had 3 surgeries in 3 years due to Condition pelvic organ prolapse for all 3 pelvic organs She has had a hysterectomy and a mesh sling in 2022 and then she developed a large inguinal hernia on the right side and she had a second robotic surgery to repair the hernia, and there is a [address] Then in may she went back in for surgery and had cystocele and rectocele repaired. Arianne was told she has minimal pelvic floor strength. She walks a lot for exercises but if she over does it then she can feel symptoms of pelvic pressure and heaviness. She has quit lifting as she was doing a lot of gardening and this was contributing to her pelvic pressure symptoms. she has a history of 4 vaginal deliveries. She has been on miralax x 3 years and she is adding in fiber so she is having bowel movements two times a day now. She does report at times she will experience bowel urgency with leakage. She does experience urinary leakage as well and this can be worse first thing in the am as she wakes with a full bladder. Arianne reports she often isn't making it to the bathroom without leaking in the am. She drinks 2 cups of coffee and green tea as well as water throughout the day. Treatment Goals Patient/Caregiver Treatment goals include decreasing pelvic pressure and Goals heaviness, decreasing incontinence and preventing any further prolapse Current Functional Impairments (Reported) Functional Pat has osteopenia and is working hard at walking for Limitations- exercise but she experiences increased pelvic pressure Mobility/Gait so is limited in her walking distance PT-OP-C Subjective Start: 09/03/24 08:10 Freq: Status: Active Protocol: Document 10/29/24 10:44 [facility] (Rec: 10/29/24 11:30 [facility] [id number]) OP-PT Subjective Patient Comments Patient Comments Pat reports she was able to delay a void when she she was washing her RV she got a strong urge to void and she was able to make it without leaking. There was no place to void and she made it home. She feels she is doing better with being able to control the urges. The prolapse is still there but she is not feeling the heaviness as much. She will be taking care of her who is having spinal fusion surgery so wont be able to return to PT until 3-4 weeks Patient Reported Improving Progress PT-OP-I Pelvic Floor Start: 09/03/24 08:10 Freq: Status: Active Protocol: Document 09/03/24 11:30 [facility] (Rec: 09/08/24 12:51 [facility] [id number]) Pelvic Floor Assessment Urine Pelvic Floor Surgery Yes Urinary Symptoms Urge Sensation Other Urinary urinary incontinence especially in the am once she Symptoms wakes up, pt notes she will leak on the way to the bathroom Leakage Size Small Pelvic Clock Pelvic Clock 12-3 Atrophy Pelvic Clock 3-6 Atrophy Pelvic Clock 6-9 Atrophy Pelvic Clock 9-12 Atrophy Prolapse Cystocele Grade 2 Contraction Ability Voluntary Weak Contraction Manual Muscle 2 Testing Left Manual Muscle 2 Testing Right Manual Muscle 2 Testing Anterior Manual Muscle 2 Testing Posterior Muscle Endurance ( 4 Seconds) PT-OP-Q Treatments Start: 09/03/24 08:10 Freq: Status: Active Protocol: Document 10/29/24 10:44 [facility] (Rec: 10/29/24 11:30 [facility] [id number]) Therapeutic Exercises Supine Exercises bridges with pelvic floor engagement and ball squeeze Reps/Minutes 10 reps Comments 15.8 and max 34 Pelvic Floor Clamshell Supine Exercise Name hooklying hip abduction with theraband Side bilateral Reps/Minutes 2 x 10 reps holding 5 seconds Comments level 3 TB Pelvic floor quick flicks Reps/Minutes x 10 reps pelvic floor long holds Reps/Minutes 10 sec hold and 10 sec relax Comments 14.0 average pelvic floor contraction with ball squeeze Reps/Minutes 10 reps holding 10 seconds Self-Care/Home Management Treatment Education Patient Education Body Mechanics Other Education HEP review education to rest pelvis. We discussed post surgical rehab care for her so she isn't having to lift at home PT-OP-T Assessment and Plan Start: 09/03/24 08:10 Freq: Status: Active Protocol: Document 10/29/24 10:44 [facility] (Rec: 10/29/24 11:30 [facility] [id number]) Physical Therapy Assessment Goals 4 Impairment Pelvic pressure that increases with walking, Pat has osteopenia and needs to be able to walk for weight bearing exercise Preschool Aide Goal (LTG) Pat reports a overall reduction of pelvic pressure with walking some progress LTG Duration 8 weeks 3 Impairment urinary incontinence that is worse in the am Preschool Aide Goal (LTG) Pat reports a overall reduction of urinary incontinence good progress LTG Duration 8 weeks 2 Impairment Decreased pelvic floor endurance Short Term Goal (STG Pat is able to sustain a pelvic floor contraction in ) supine x 10 seconds goal met STG Duration 4 weeks Usp Goal (LTG) Pat is able to sustain a pelvic floor contraction in sitting x 10 seconds goal not yet met LTG Duration 8 weeks 1 Impairment pelvic floor weakness, MMT of 2/5 throughout all martinez of the levator ani Short Term Goal (STG Pat is educated on pelvic floor strengthening for a HEP ) STG Duration 3 weeks Preschool Aide Goal (LTG) Pat is able to improve pelvic floor strength by 1 muscle grade to 3/5 MMT or better good progress LTG Duration 8 weeks Assessment Summary Assessment Arianne continues to show good progress with pelvic floor strength and endurance training. She is reporting decreased urinary leakage. She reports the prolapse is still there but it feels more like a bubble protruding that the heavy pressure she was feeling. Arianne will be taking care of her after his spinal surgery and we have talked a great deal about not over doing it and not lifting heavy. She would like to continue PT in 3-4 weeks after his surgery so I will update her plan of care. 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
--- NOTE | 2024-12-10 17:16 | PT.OPPOC ---
Physical, Occupational & Speech Therapy At [facility] Current Diagnoses Other specified urinary incontinence (12/10/24) Pelvic muscle wasting (12/10/24) Other female genital prolapse (12/10/24) Visit Care Team Role Provider Type Pasquale Del Rosario DO Primary Care Provider Non-Staff Specialty: Family Practice Address: [place], [address] Email: Bruce Varela DO Family Provider Non-Staff Specialty: Family Practice Address: [address] [place] [address], [id number] Email: Maxine Gordon MD Attending Provider Non-Staff Referring Provider Specialty: Urology Address: [address] [place] [address], [facility] Email: Plan Of Care PT-OP-A Visit Information Start: 09/03/24 08:10 Freq: Status: Active Protocol: Document 12/10/24 09:50 [facility] (Rec: 12/10/24 10:48 [facility] [id number]) Out-Patient Physical Therapy Visit Information Visit Information Visit Type Progress Note Visit Start Time 09:50 Visit Stop Time 10:30 Visit Number 9 PT-OP-B Current Condition Start: 09/03/24 08:10 Freq: Status: Active Protocol: Document 09/03/24 11:30 [facility] (Rec: 09/03/24 11:57 [facility] [id number]) Current Condition History of Current Condition Onset Date 3 years ago Current Complaints pelvic floor weakness, pelvic pressure/heaviness, urinary/fecal incontinence History of Current pt reports she has had 3 surgeries in 3 years due to Condition pelvic organ prolapse for all 3 pelvic organs She has had a hysterectomy and a mesh sling in 2022 and then she developed a large inguinal hernia on the right side and she had a second robotic surgery to repair the hernia, and there is a [address] Then in may she went back in for surgery and had cystocele and rectocele repaired. Pat was told she has minimal pelvic floor strength. She walks a lot for exercises but if she over does it then she can feel symptoms of pelvic pressure and heaviness. She has quit lifting as she was doing a lot of gardening and this was contributing to her pelvic pressure symptoms. she has a history of 4 vaginal deliveries. She has been on miralax x 3 years and she is adding in fiber so she is having bowel movements two times a day now. She does report at times she will experience bowel urgency with leakage. She does experience urinary leakage as well and this can be worse first thing in the am as she wakes with a full bladder. Arianne reports she often isn't making it to the bathroom without leaking in the am. She drinks 2 cups of coffee and green tea as well as water throughout the day. Treatment Goals Patient/Caregiver Treatment goals include decreasing pelvic pressure and Goals heaviness, decreasing incontinence and preventing any further prolapse Current Functional Impairments (Reported) Functional Arianne has osteopenia and is working hard at walking for Limitations- exercise but she experiences increased pelvic pressure Mobility/Gait so is limited in her walking distance PT-OP-C Subjective Start: 09/03/24 08:10 Freq: Status: Active Protocol: Document 12/10/24 09:50 [facility] (Rec: 12/10/24 10:48 [facility] [id number]) OP-PT Subjective Patient Comments Patient Comments pt returns to PT after not being seen since october 29 due to her husbands surgery, she tried to be careful with lifting but she notes she was on her feet way too much. She does have a inversion table that she is using to take pressure off her pelvis. She reports she has been so busy taking care of her after his spine surgery that she has not had time for her exercises but wants to return to her exercise program. she is not having trouble with leakage but still having trouble with her bowels but she is working on keeping up with fiber and miralax. She still feels the prolapse and she has to squat to push it back up. Arianne notes she would like to continue with PT as her is able now to start doing more on his own PT-OP-I Pelvic Floor Start: 09/03/24 08:10 Freq: Status: Active Protocol: Document 09/03/24 11:30 [facility] (Rec: 09/08/24 12:51 [facility] [id number]) Pelvic Floor Assessment Urine Pelvic Floor Surgery Yes Urinary Symptoms Urge Sensation Other Urinary urinary incontinence especially in the am once she Symptoms wakes up, pt notes she will leak on the way to the bathroom Leakage Size Small Pelvic Clock Pelvic Clock 12-3 Atrophy Pelvic Clock 3-6 Atrophy Pelvic Clock 6-9 Atrophy Pelvic Clock 9-12 Atrophy Prolapse Cystocele Grade 2 Contraction Ability Voluntary Weak Contraction Manual Muscle 2 Testing Left Manual Muscle 2 Testing Right Manual Muscle 2 Testing Anterior Manual Muscle 2 Testing Posterior Muscle Endurance ( 4 Seconds) PT-OP-Q Treatments Start: 09/03/24 08:10 Freq: Status: Active Protocol: Document 12/10/24 09:50 [facility] (Rec: 12/10/24 17:14 [facility] [id number]) Self-Care/Home Management Treatment Education Patient Education Body Mechanics,Home Exercise Program Other Education pt was educated in body mechanics for proper lifting, education on pelvic floor exercises while on the inversion table discussion of prolapse symptoms PT-OP-T Assessment and Plan Start: 09/03/24 08:10 Freq: Status: Active Protocol: Document 12/10/24 09:50 [facility] (Rec: 12/10/24 10:48 [facility] [id number]) Physical Therapy Assessment Goals 4 Impairment Pelvic pressure that increases with walking, Pat has osteopenia and needs to be able to walk for weight bearing exercise Agricultural Loan Officer Goal (LTG) Pat reports a overall reduction of pelvic pressure with walking some progress LTG Duration 8 weeks 3 Impairment urinary incontinence that is worse in the am Fdc Goal (LTG) Pat reports a overall reduction of urinary incontinence good progress LTG Duration 8 weeks 2 Impairment Decreased pelvic floor endurance Short Term Goal (STG Pat is able to sustain a pelvic floor contraction in ) supine x 10 seconds goal met STG Duration 4 weeks Fdc Goal (LTG) Pat is able to sustain a pelvic floor contraction in sitting x 10 seconds goal not yet met LTG Duration 8 weeks 1 Impairment pelvic floor weakness, MMT of 2/5 throughout all martinez of the levator ani Short Term Goal (STG Pat is educated on pelvic floor strengthening for a HEP ) STG Duration 3 weeks Agricultural Loan Officer Goal (LTG) Pat is able to improve pelvic floor strength by 1 muscle grade to 3/5 MMT or better good progress LTG Duration 8 weeks Assessment Summary Assessment Arianne returns to PT after not being seen since 10/29/24 since her underwent a spinal fusion. She has been the primary caregiver for her and has not been able to return to PT until now. Arianne has been using her inversion table to take pressure off her pelvis but has not been able to work on her exercises during this time period. Her is doing better and she plans on returning to her exercise program and wants to continue PT. I will update her plan of care to allow her to continue PT Physical Therapy Plan Frequency and Duration Frequency of 1x/Week Treatment Duration of 12 treatment (weeks) Plan of Care Start 12/10/24 Date Plan of Care End 02/04/25 Date Next Visit Focus/Plan Next Note Type Treatment Note Next Visit Plan Continue with strength and endurance training for the pelvic floor Plan of Care Dates Plan of Care Start Date 12/10/24 Plan of Care End Date 02/04/25 Electronically Signed by: Camilla Miranda, PT 12/10/24 [id number] If you are in agreement with this Plan of Care, please return a signed and dated copy. I have reviewed this Plan of Care and certify that the skilled therapy services above are required to meet the patient?s needs. Physician Signature Date Printed Name and Credentials Clinical Instructor Signature Printed Name and Credentials
--- NOTE | 2024-12-17 16:26 | PT.OTN ---
Current Diagnoses Other specified urinary incontinence (12/17/24) Pelvic muscle wasting (12/17/24) Other female genital prolapse (12/17/24) Physical Therapy Treatment Note PT-OP-A Visit Information Start: 09/03/24 08:10 Freq: Status: Active Protocol: Document 12/17/24 10:49 [facility] (Rec: 12/17/24 11:30 [facility] [id number]) Out-Patient Physical Therapy Visit Information Visit Information Visit Type Treatment Note Visit Start Time 10:49 Visit Stop Time 11:30 Visit Number 10 PT-OP-B Current Condition Start: 09/03/24 08:10 Freq: Status: Active Protocol: Document 09/03/24 11:30 [facility] (Rec: 09/03/24 11:57 [facility] [id number]) Current Condition History of Current Condition Onset Date 3 years ago Current Complaints pelvic floor weakness, pelvic pressure/heaviness, urinary/fecal incontinence History of Current pt reports she has had 3 surgeries in 3 years due to Condition pelvic organ prolapse for all 3 pelvic organs She has had a hysterectomy and a mesh sling in 2022 and then she developed a large inguinal hernia on the right side and she had a second robotic surgery to repair the hernia, and there is a [address] Then in may she went back in for surgery and had cystocele and rectocele repaired. Arianne was told she has minimal pelvic floor strength. She walks a lot for exercises but if she over does it then she can feel symptoms of pelvic pressure and heaviness. She has quit lifting as she was doing a lot of gardening and this was contributing to her pelvic pressure symptoms. she has a history of 4 vaginal deliveries. She has been on miralax x 3 years and she is adding in fiber so she is having bowel movements two times a day now. She does report at times she will experience bowel urgency with leakage. She does experience urinary leakage as well and this can be worse first thing in the am as she wakes with a full bladder. Arianne reports she often isn't making it to the bathroom without leaking in the am. She drinks 2 cups of coffee and green tea as well as water throughout the day. Treatment Goals Patient/Caregiver Treatment goals include decreasing pelvic pressure and Goals heaviness, decreasing incontinence and preventing any further prolapse Current Functional Impairments (Reported) Functional Pat has osteopenia and is working hard at walking for Limitations- exercise but she experiences increased pelvic pressure Mobility/Gait so is limited in her walking distance PT-OP-C Subjective Start: 09/03/24 08:10 Freq: Status: Active Protocol: Document 12/17/24 10:49 [facility] (Rec: 12/17/24 11:30 [facility] [id number]) OP-PT Subjective Patient Comments Patient Comments Pat reports she has been doing her exercises on her inversion table and she can feel her pelvic floor muscles more PT-OP-I Pelvic Floor Start: 09/03/24 08:10 Freq: Status: Active Protocol: Document 09/03/24 11:30 [facility] (Rec: 09/08/24 12:51 [facility] [id number]) Pelvic Floor Assessment Urine Pelvic Floor Surgery Yes Urinary Symptoms Urge Sensation Other Urinary urinary incontinence especially in the am once she Symptoms wakes up, pt notes she will leak on the way to the bathroom Leakage Size Small Pelvic Clock Pelvic Clock 12-3 Atrophy Pelvic Clock 3-6 Atrophy Pelvic Clock 6-9 Atrophy Pelvic Clock 9-12 Atrophy Prolapse Cystocele Grade 2 Contraction Ability Voluntary Weak Contraction Manual Muscle 2 Testing Left Manual Muscle 2 Testing Right Manual Muscle 2 Testing Anterior Manual Muscle 2 Testing Posterior Muscle Endurance ( 4 Seconds) PT-OP-Q Treatments Start: 09/03/24 08:10 Freq: Status: Active Protocol: Document 12/17/24 10:49 [facility] (Rec: 12/17/24 11:30 [facility] [id number]) Therapeutic Exercises Supine Exercises bridges with pelvic floor engagement and ball squeeze Reps/Minutes 10 reps Comments 15.8 and max 34 Pelvic Floor Clamshell Supine Exercise Name hooklying hip abduction with theraband Side bilateral Reps/Minutes 2 x 10 reps holding 5 seconds Comments level 3 TB pelvic floor long holds Reps/Minutes 10 sec hold and 10 sec relax Comments 11.3 18.2 max pelvic floor contraction with ball squeeze Reps/Minutes 10 reps holding 10 seconds PT-OP-T Assessment and Plan Start: 09/03/24 08:10 Freq: Status: Active Protocol: Document 12/17/24 10:49 [facility] (Rec: 12/17/24 11:30 [facility] [id number]) Physical Therapy Assessment Goals 4 Impairment Pelvic pressure that increases with walking, Pat has osteopenia and needs to be able to walk for weight bearing exercise Mass Communications Professor Goal (LTG) Pat reports a overall reduction of pelvic pressure with walking some progress LTG Duration 8 weeks 3 Impairment urinary incontinence that is worse in the am Correction Goal (LTG) Pat reports a overall reduction of urinary incontinence good progress LTG Duration 8 weeks 2 Impairment Decreased pelvic floor endurance Short Term Goal (STG Pat is able to sustain a pelvic floor contraction in ) supine x 10 seconds goal met STG Duration 4 weeks Correction Goal (LTG) Pat is able to sustain a pelvic floor contraction in sitting x 10 seconds goal not yet met LTG Duration 8 weeks 1 Impairment pelvic floor weakness, MMT of 2/5 throughout all martinez of the levator ani Short Term Goal (STG Pat is educated on pelvic floor strengthening for a HEP ) STG Duration 3 weeks Mass Communications Professor Goal (LTG) Arianne is able to improve pelvic floor strength by 1 muscle grade to 3/5 MMT or better good progress LTG Duration 8 weeks Assessment Summary Assessment Average pelvic floor today was 11 uv which is down from where it was prior to Arianne's husbands surgery. She also felt like her long holds were more difficult and not as coordinated today. Arianne plans on returning to her endurance holds as now her does not need as much from her. I encouraged her to take time to rest her pelvis each day too as she tends to push througout the day. Physical Therapy Plan Frequency and Duration Frequency of 1x/Week Treatment Duration of 12 treatment (weeks) Plan of Care Start 12/10/24 Date Plan of Care End 02/04/25 Date Next Visit Focus/Plan Next Note Type Treatment Note Next Visit Plan Continue with strength and endurance training for the pelvic floor
--- NOTE | 2025-01-05 13:20 | PT.OTN ---
Current Diagnoses Other specified urinary incontinence (01/05/25) Pelvic muscle wasting (01/05/25) Other female genital prolapse (01/05/25) Physical Therapy Treatment Note PT OP: Pelvic Health Start: 12/17/24 16:26 Freq: Status: Active Protocol: Document 01/05/25 08:14 [facility] (Rec: 01/05/25 10:46 [facility] [id number]) Out-Patient Physical Therapy Visit Information Visit Information Visit Type Treatment Note Visit Start Time 08:15 Visit Stop Time 09:00 Visit Number 11 OP-PT Subjective Patient Comments Patient Comments pt got the poise impressa and will start working with it this week. She did get vaginal weights but she notes that it is very difficult to use. Its okay in the am and she can go for a while. Its when she is on her feet all the time. Pat also reports she lost her dog this week so it has been a difficult week for her. Therapeutic Exercises Supine Exercises piriformis stretch Reps/Minutes hold 1-2 min [happy baby Reps/Minutes hold 1-2 min pelvic floor long holds Reps/Minutes 10 sec hold and 10 sec relax pelvic floor contraction with ball squeeze Reps/Minutes 10 reps holding 10 seconds Comments 14 average contraction Standing Exercises standing pelvic floor holds Standing Exercise average 4.4 and max 12.9 Name Reps/Minutes 5 sec hold and 10 sec relax Physical Therapy Assessment Goals 4 Impairment Pelvic pressure that increases with walking, Pat has osteopenia and needs to be able to walk for weight bearing exercise Senior Living Goal (LTG) Pat reports a overall reduction of pelvic pressure with walking some progress LTG Duration 8 weeks 3 Impairment urinary incontinence that is worse in the am Senior Living Goal (LTG) Pat reports a overall reduction of urinary incontinence good progress LTG Duration 8 weeks 2 Impairment Decreased pelvic floor endurance Short Term Goal (STG Pat is able to sustain a pelvic floor contraction in ) supine x 10 seconds goal met STG Duration 4 weeks Senior Living Goal (LTG) Pat is able to sustain a pelvic floor contraction in sitting x 10 seconds goal not yet met LTG Duration 8 weeks 1 Impairment pelvic floor weakness, MMT of 2/5 throughout all martinez of the levator ani Short Term Goal (STG Pat is educated on pelvic floor strengthening for a HEP ) STG Duration 3 weeks Engineer Specialist Goal (LTG) Pat is able to improve pelvic floor strength by 1 muscle grade to 3/5 MMT or better good progress LTG Duration 8 weeks Assessment Summary Assessment Arianne continues to progress with her average pelvic floor contraction. She has one visit left in PT to review all her exercises and then she will be discharged to a [facility]. She also plans on trying the poise impressa before I see her again. Physical Therapy Plan Frequency and Duration Frequency of 1x/Week Treatment Duration of 12 treatment (weeks) Plan of Care Start 12/10/24 Date Plan of Care End 02/04/25 Date Next Visit Focus/Plan Next Note Type Treatment Note Next Visit Plan review all exercises as this next visit will be the last PT visit for Arianne
--- NOTE | 2025-01-14 16:39 | PT.OPDS ---
Current Diagnoses Other specified urinary incontinence (01/14/25) Pelvic muscle wasting (01/14/25) Other female genital prolapse (01/14/25) Visit Care Team Role Provider Type Pasquale Del Rosario DO Primary Care Provider Non-Staff Specialty: Family Practice Address: [place], [address] Email: Bruce Varela DO Family Provider Non-Staff Specialty: Family Practice Address: [address] [place] [address], [id number] Email: Maxine Gordon MD Attending Provider Non-Staff Referring Provider Specialty: Urology Address: [address] [place] [address], [id number] Email: Visit Number Visit Number 12 Discharge Summary PT OP: Pelvic Health Start: 12/17/24 16:26 Freq: Status: Active Protocol: Document 01/14/25 09:46 [facility] (Rec: 01/14/25 10:32 [facility] [id number]) Out-Patient Physical Therapy Visit Information Visit Information Visit Type Treatment Note Visit Start Time 09:45 Visit Stop Time 10:30 Visit Number 12 OP-PT Subjective Patient Comments Patient Comments Arianne reports she has been using her kegel eggs and is able to hold the first size in. She notes she forgot about it though and when she took it out her tissue was irritated. She also has a pessary to use now when needed for longer times out on her feet Patient Reported Improving Progress Therapeutic Exercises Supine Exercises templates for eccentric control and coordination Reps/Minutes 5 min bridges with pelvic floor engagement and ball squeeze Reps/Minutes 10 reps Comments 15.8 and max 34 Pelvic floor quick flicks Reps/Minutes x 12 Comments 30 uv pelvic floor long holds Reps/Minutes 10 sec hold and 10 sec relax Comments 13.8 and 34.2 Self-Care/Home Management Treatment Education Patient Education Home Exercise Program Other Education pessary and kegel egg instructions and education Physical Therapy Assessment Goals 4 Impairment Pelvic pressure that increases with walking, Pat has osteopenia and needs to be able to walk for weight bearing exercise Medical Logistics Specialist Goal (LTG) Pat reports a overall reduction of pelvic pressure with walking pt reports she has had good progress, she does feel the prolapse at times and when she is tired and she is trying to take rest breaks more now when tired and when she feels the prolapse symptoms LTG Duration 8 weeks 3 Impairment urinary incontinence that is worse in the am Medical Logistics Specialist Goal (LTG) Pat reports a overall reduction of urinary incontinence goal met LTG Duration 8 weeks 2 Impairment Decreased pelvic floor endurance Short Term Goal (STG Pat is able to sustain a pelvic floor contraction in ) supine x 10 seconds goal met STG Duration 4 weeks Medical Logistics Specialist Goal (LTG) Pat is able to sustain a pelvic floor contraction in sitting x 10 seconds goal met LTG Duration 8 weeks 1 Impairment pelvic floor weakness, MMT of 2/5 throughout all martinez of the levator ani Short Term Goal (STG Pat is educated on pelvic floor strengthening for a HEP ) STG Duration 3 weeks Skilled Nursing Goal (LTG) Pat is able to improve pelvic floor strength by 1 muscle grade to 3/5 MMT or better good progress LTG Duration 8 weeks Assessment Summary Assessment Pat has shown good progress with PT. She is independent with her HEP at this time. Her prolapse symptoms are intermittent and she does have a pessary now to help with splinting when she is going to be on her feet for longer periods of time. At this time we will discharge her to a [facility] Physical Therapy Plan Discharge Physical Therapy Discharge Comments pt is independent with a HEP and will be discharged at this time
== END 2025-01-18 09:40 | disposition home or self-care (01) ==
LOC: PHYS 09:45
PROVIDERS: Family Provider Family Medicine; PCP Family Medicine; Referring Provider Obstetrics & Gynecology Female Pelvic Medicine and Reconstructive Surgery; Visit Provider Obstetrics & Gynecology Female Pelvic Medicine and Reconstructive Surgery
DX: N81.89 Other female genital prolapse (principal); N81.84 Pelvic muscle wasting; N39.498 Other specified urinary incontinence
CPT/HCPCS: 97110; 97162; 97164; 97535